=== PATIENT | male | born 1940 | race Caucasian/White ===

== ENCOUNTER 2017-03-23 16:16 | Emergency (ER) | payer MEDICAID, MEDICARE, OTHER ==
[~2017-03-23] VITALS: Ht 177.8 cm; Wt 68.0 kg
[~2017-03-23 16:16] MED LIST: ACET-2619 PO; ASPI81CT89 PO; BISA10SU1 RC; CALC-105 PO; CEPH500C16 PO; DEXT40GE PO; GABA100C PO; GLU1I IM; HYDR25TA32 PO; INSU100S45 SUBQ; LANTUS SUBQ; LEVO0.2T5 PO; LISI-420 PO; LOVA40TA5 PO; METF500T4 PO; METO-50 PO; OMEP-48 PO; PENT400T PO; PEP15L PO; TRAZ-286 PO; [UNRECOGNIZED DRUG - CODE] PO; [UNRECOGNIZED DRUG - CODE] PO; [UNRECOGNIZED DRUG - CODE] PO
[2017-03-23 17:29] VITALS: BP 135/64
--- NOTE | 2017-03-23 19:27 | NUR ---
PT TAKEN TO BED 12
--- NOTE | 2017-03-23 19:40 | NUR ---
76Y M BIB HEAD OF PRODUCT FOR ABSCESS TO RIGHT BAPTIST OF HEAD X 5 DAYS. PT STATES THE ABSCESS HAS GROWN IN SIZE AND WOULD LIKE TO BE EVALUATED. PT DENIES ANY PAIN. PT DENIES ANY N/V/D, SOB, CP AT THE MOMENT. 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
[2017-03-23] MEDS ORDERED: LIDOCAINE 1% 500 MG/50 ML VIAL INJ SCH (19:55)
--- NOTE | 2017-03-23 20:05 | NUR ---
Patient being evaluated by physician at bedside.
[2017-03-23] MEDS ORDERED: LIDOCAINE 2% 1000 MG/50 ML VIAL INJ ONE ×2 (20:06→20:10)
--- NOTE | 2017-03-23 20:35 | NUR ---
Patient discharged with v/s stable. Written and verbal after care instructions given and explained. Patient alert, oriented and verbalized understanding of instructions. Ambulatory with by caregiver. All questions addressed prior to discharge. ID band removed. Patient advised to follow up with PMD. Rx of BACTRIM DS, ULTRAM 50MG given. Patient educated on indication of medication including possible reaction and side effects. Opportunity to ask questions provided and answered.
[2017-03-23 20:36] VITALS: BP 119/71
== END 2017-03-23 20:35 | disposition home or self-care (01) ==
LOC: MED 16:16
DX: L02.811 Cutaneous abscess of head [any part, except face] (principal); J44.9 Chronic obstructive pulmonary disease, unspecified; E11.9 Type 2 diabetes mellitus without complications; Z88.5 Allergy status to narcotic agent
CPT/HCPCS: 10060; 82948; 99283; J2001

== ENCOUNTER 2017-12-02 08:32 | Emergency (ER) | payer OTHER, MEDICAID ==
[~2017-12-02] VITALS: Ht 170.2 cm; Wt 78.0 kg
[~2017-12-02 08:32] MED LIST changes: +DEXT31GE2 PO; -DEXT40GE PO; +INDO25CA PO; +METF-988 PO; -METF500T4 PO; -TRAZ-286 PO; +TRAZ-343 PO; -[UNRECOGNIZED DRUG - CODE] PO
[2017-12-02 08:42] VITALS: BP 115/57
[2017-12-02] MEDS ORDERED: [UNRECOGNIZED DRUG - CODE] PO (09:15)
[2017-12-02] MEDS ORDERED: AMLO10TA PO (09:15)
[2017-12-02] MEDS ORDERED: ALEN70TA1 PO (09:15)
[2017-12-02] MEDS ORDERED: ONDA4TAB PO (09:15)
[2017-12-02] MEDS ORDERED: MIRA25TE PO (09:15)
[2017-12-02] MEDS ORDERED: POTA8TER12 PO (09:15)
[2017-12-02] MEDS ORDERED: FURO-570 PO (09:15)
[2017-12-02] MEDS ORDERED: TRAM50TA1 PO (09:15)
[2017-12-02] MEDS ORDERED: METF1TAB34 PO (09:15)
[2017-12-02] MEDS ORDERED: RANI-485 PO (09:15)
[2017-12-02] MEDS ORDERED: [UNRECOGNIZED DRUG - CODE] SUBQ (09:15)
[2017-12-02] MEDS ORDERED: LOSA50TA27 PO (09:15)
[2017-12-02] MEDS ORDERED: PRE50 PO (09:15)
[2017-12-02] MEDS ORDERED: ROB PO (09:15)
[2017-12-02] MEDS ORDERED: TAMS0.4C96 PO (09:15)
[2017-12-02] MEDS: ONDANSETRON 4 MG/2 ML VIAL IVP ONE (09:29)
[2017-12-02] MEDS: NACL 0.9% 500 ML IV SCH (09:30)
[2017-12-02 09:41] LABS: WHITE BLOOD COUNT (AUTO) 9.6 K/uL (4.8-10.8)
[2017-12-02 09:42] LABS: BASOPHILS % (AUTO) 0.6 % (0.0-2.0); EOSINOPHILS % (AUTO) 1.5 % (0.0-4.0); HEMATOCRIT 37.7 % (36-52); HEMOGLOBIN 12.5 g/dL (12.0-18.0); LYMPHOCYTES # (AUTO) 0.7 K/uL (2.0-11.5); LYMPHOCYTES % (AUTO) 7.2 % (20.5-51.1); MEAN CORPUSCULAR HEMOGLOBIN 31 pg (27-31); MEAN CORPUSCULAR HGB CONC 33 g/dL (33-37); MEAN CORPUSCULAR VOLUME 94.9 fL (80-94); MONOCYTES % (AUTO) 16.4 % (1.7-9.3); NEUTROPHILS # (AUTO) 7.1 K/uL (1.8-7.7); NEUTROPHILS % (AUTO) 74.3 % (42.2-75.2); PLATELET COUNT (AUTO) 213 K/uL (140-450); RED BLOOD CELL COUNT(AUTO) 3.97 MIL/uL (4.20-6.10); RED CELL DISTRIBUTION WIDTH 14.1 % (11.6-13.7)
[2017-12-02 09:43] LABS: BASOPHILS # (AUTO) 0.1 K/uL (0.00-0.22); EOSINOPHILS # (AUTO) 0.1 K/uL (0-0.4); MONOCYTES # (AUTO) 1.6 K/uL (0.8-1.0)
[2017-12-02 09:53] LABS: ANION GAP 8.1 (8-16); CARBON DIOXIDE 27.6 mmol/L (21-32); CHLORIDE 103 mmol/L (98-107); CREATININE 1.4 mg/dL (0.7-1.3); GLUCOSE 158 mg/dL (74-106); POTASSIUM 3.7 mmol/L (3.5-5.1); SODIUM SERUM 135 mmol/L (136-145); UREA NITROGEN, BLOOD 18 mg/dL (7-18)
[2017-12-02 09:59] LABS: ASPARTATE AMINOTRANSFERASE 31 U/L (15-37); LIPASE 55 U/L (73-393); TOTAL BILIRUBIN 0.4 mg/dL (0.0-1.0)
[2017-12-02 12:45] LABS: APPEARANCE,URINE CLEAR (CLEAR); COLOR,URINE YELLOW (YELLOW)
[2017-12-02 12:46] LABS: BILIRUBIN,URINE NEGATIVE (NEGATIVE); BLOOD, URINE NEGATIVE (NEGATIVE); LEUKOCYTE ESTERASE ,URINE NEGATIVE (NEGATIVE); NITRITE, URINE NEGATIVE (NEGATIVE); UGLUCOSE NEGATIVE (NEGATIVE)
[2017-12-02] MEDS: cloNIDine 0.1 MG TAB PO ONE (13:20)
[2017-12-02 13:48] VITALS: BP 135/63
== END 2017-12-02 13:45 | disposition home or self-care (01) ==
LOC: MED 08:32
DX: K59.00 Constipation, unspecified (principal); J44.9 Chronic obstructive pulmonary disease, unspecified; E11.9 Type 2 diabetes mellitus without complications; I10 Essential (primary) hypertension; Z88.5 Allergy status to narcotic agent; Z79.899 Other long term (current) drug therapy; Z79.1 Long term (current) use of non-steroidal anti-inflammatories (NSAID); Z79.4 Long term (current) use of insulin
CPT/HCPCS: 36415; 74176; 80053; 81003; 83690; 85025; 96361; 96374; 99285; J2405; J7030

== ENCOUNTER 2018-04-05 10:21 | Inpatient (IN) | payer MEDICAID, OTHER ==
[~2018-04-05] VITALS: Ht 177.8 cm; Wt 63.5 kg
[~2018-04-05 10:21] MED LIST changes: +ALEN70TA1 PO; +AMLO10TA PO; +ASPI-1718 PO; -ASPI81CT89 PO; -CEPH500C16 PO; +FURO-570 PO; -HYDR25TA32 PO; -INDO25CA PO; -LISI-420 PO; +LOSA50TA66 PO; -METF-988 PO; +METF1TAB34 PO; +MIRA25TE PO; -OMEP-48 PO; +ONDA4TAB PO; -PENT400T PO; +POTA8TER12 PO; +PRE50 PO; +RANI-745 PO; +ROB PO; +TAMS0.4C96 PO; +TRAM50TA1 PO; +[UNRECOGNIZED DRUG - CODE] PO; -[UNRECOGNIZED DRUG - CODE] PO; -[UNRECOGNIZED DRUG - CODE] PO; +[UNRECOGNIZED DRUG - CODE] SUBQ
[2018-04-05 10:28] VITALS: BP 135/69
--- NOTE | 2018-04-05 10:28 | NUR ---
PT BIB [facility] TO ER BED 6
--- NOTE | 2018-04-05 10:50 | NUR ---
BROUGHT IN BY EMS FROM [facility] STAFF STATED PT WITH COUGH FEVER FATIGUE MILD ACCESSORY MUSCLE USE NOTED AT THIS TIME. HX--MILD INTELLECTUAL DISABILITY, DM, GERD, HTN, LEFT BKA, THYROID RX---ACTOS 15MG, HCTZ 25MG, BYDUREON 2MG SQ, ACARBOSE 50MG TID, BYRBETRIQ 50MG QD, LASIX 40MG HUMALOG, TAMSULOSIN 0.4MGQD
--- NOTE | 2018-04-05 10:50 | NUR ---
MARKETING ACCOUNT MANAGER HEIDI AND BILL AT BEDSIDE FOR CHEST XRAY
--- NOTE | 2018-04-05 11:01 | NUR ---
URINE AND FLU SPECIMEN COLLECTED AND GIVEN TO COVERAGE SPECIALIST RNBRETT RANDALL
[2018-04-05 11:18] LABS: APPEARANCE,URINE CLEAR (CLEAR); BILIRUBIN,URINE NEGATIVE (NEGATIVE); BLOOD, URINE NEGATIVE (NEGATIVE); COLOR,URINE YELLOW (YELLOW); LEUKOCYTE ESTERASE ,URINE TRACE (NEGATIVE); NITRITE, URINE NEGATIVE (NEGATIVE); PH,URINE 7.5 (5.0-9.0); UGLUCOSE NEGATIVE (NEGATIVE)
[2018-04-05 11:27] LABS: RBC,URINE 0-5 (RARE) /HPF (0-5); WBC,URINE 0-5 (RARE) /HPF (0-5)
[2018-04-05] MEDS ORDERED: NACL 0.9% 500 ML IV SCH (11:58)
[2018-04-05 12:56] LABS: ANION GAP 9.9 (8-16); CARBON DIOXIDE 29.9 mmol/L (21-32); CHLORIDE 99 mmol/L (98-107); CREATININE 1.4 mg/dL (0.7-1.3); GLUCOSE 134 mg/dL (74-106); POTASSIUM 3.8 mmol/L (3.5-5.1); SODIUM SERUM 135 mmol/L (136-145); UREA NITROGEN, BLOOD 23 mg/dL (7-18)
[2018-04-05 13:01] LABS: MAGNESIUM 1.6 mg/dL (1.8-2.4); URIC ACID 4.4 mg/dL (2.6-7.2)
[2018-04-05 13:10] LABS: ALBUMIN 3.2 g/dL (3.4-5.0); ASPARTATE AMINOTRANSFERASE 28 U/L (15-37); TOTAL BILIRUBIN 0.4 mg/dL (0.0-1.0)
[2018-04-05 13:15] LABS: ACETONE, SERUM NEGATIVE (NEGATIVE)
[2018-04-05 13:28] LABS: BASOPHILS % (AUTO) 0.2 % (0.0-2.0); HEMOGLOBIN 11.8 g/dL (12.0-18.0); LYMPHOCYTES # (AUTO) 0.4 K/uL (2.0-11.5); LYMPHOCYTES % (AUTO) 2.6 % (20.5-51.1); MEAN CORPUSCULAR HEMOGLOBIN 31 pg (27-31); MEAN CORPUSCULAR HGB CONC 33 g/dL (33-37); MEAN CORPUSCULAR VOLUME 92.8 fL (80-94); MONOCYTES # (AUTO) 1.5 K/uL (0.8-1.0); MONOCYTES % (AUTO) 10.4 % (1.7-9.3); NEUTROPHILS % (AUTO) 86.8 % (42.2-75.2); PLATELET COUNT (AUTO) 190 K/uL (140-450); RED BLOOD CELL COUNT(AUTO) 3.88 MIL/uL (4.20-6.10); RED CELL DISTRIBUTION WIDTH 15.2 % (11.6-13.7); WHITE BLOOD COUNT (AUTO) 14.9 K/uL (4.8-10.8)
[2018-04-05] MEDS ORDERED: PIPERACILLIN/TAZOBACTAM 3.375 GM in DEXTROSE 5% 50 ML IV ONE (14:35)
[2018-04-05] MEDS ORDERED: ALBUTEROL SULFATE/IPRATROPIU 3 ML SOL IH ONE (14:35)
[2018-04-05] MEDS ORDERED: methylPREDNISolone SS 125 MG/2 ML VIAL IVP ONE (14:35)
[2018-04-05] MEDS ORDERED: ONDANSETRON 4 MG/2 ML VIAL IM/IVP PRN (14:50)
[2018-04-05] MEDS ORDERED: ACETAMINOPHEN 325 MG TAB PO PRN (14:50)
[2018-04-05] MEDS ORDERED: HYDROcodone/APAP 7.5/325 MG 1 TAB PO PRN (14:50)
[2018-04-05] MEDS ORDERED: DOCUSATE SODIUM 100 MG GELCAP PO PRN (14:50)
[2018-04-05] MEDS ORDERED: MAG SULF 2000 MG/WATER PREMIX 50 ML IV SCH (15:00)
[2018-04-05] MEDS ORDERED: PIPERACILLIN/TAZOBACTAM 3.375 GM VIAL IV ONE (15:05)
[2018-04-05] MEDS ORDERED: GABAPENTIN 100 MG CAP PO PRN (15:15)
[2018-04-05] MEDS ORDERED: traZODone 50 MG TAB PO PRN (15:15)
[2018-04-05] MEDS ORDERED: DEXTROSE 50% 50 ML SYR IVP PRN (15:20)
[2018-04-05 16:01] LABS: BARBITURATE, URINE NEGATIVE ng/ml (NEG <=200); BENZODIAZEPINE, URINE NEGATIVE ng/mL (NEG <=200); CANNABINOID, URINE NEGATIVE ng/mL (NEG <=50); COCAINE, URINE NEGATIVE ng/mL (NEG <=300); OPIATE, URINE NEGATIVE ng/mL (NEG <=2000); PHENCYCLIDINE SCREEN,URINE NEGATIVE ng/mL (NEG <=25)
[2018-04-05 16:10] VITALS: BP 144/54
--- NOTE | 2018-04-05 16:10 | NUR ---
Patient will be admitted to care of Dr Carey. Admited to tele room 124A Belongings list completed. Report to GEO Bacon.
[2018-04-05 16:23] LABS: PHOSPHORUS 2.4 mg/dL (2.5-4.9)
[2018-04-05 16:24] LABS: CHOL/HDL RATIO 1.5 (1-4.5); THYROID STIMULATING HORMONE 1.62 uIU/mL (0.34-3.74)
[2018-04-05] MEDS: BLOOD GLUCOSE MONITORING 1 DEV DEV FS SCH ×2 (16:30→21:25)
--- NOTE | 2018-04-05 16:30 | NUR ---
Admitted from ED, with chief complaint of GENERALIZED WEAKNESS ,PT IS A 77 y/o ,Male, Cooperative,oriented to call light, bed, phone,television, bathroom, smoking policy,visiting hours, procedures, ID bracelet on. Belongings list checked. NO SOB NOTED. NO C/O PAIN AT THIS TIME. IV TO LEFT HAND PATENT AND INTACT. CHEST, DIMINISHED AIR ENTRY TO THE BASES. ABDOMEN SOFT,BOWEL SOUNDS PREST. WITH LEFT BKA, STUMP CLEAN, SKIN INTACT. INSTRUCTED PT TO CALL FOR ASSISTANCE, CALL LIGHT WITHIN REACH. VERBALIZED UNDERSTANDING.
[2018-04-05] MEDS ORDERED: PROMETHAZINE DM 6.25/15MG-5ML ORASYR PO PRN (17:00)
[2018-04-05] MEDS ORDERED: ACARBOSE 50 MG TAB PO SCH (17:00)
[2018-04-05] MEDS: NACL 0.9% 1,000 ML IV SCH (17:11)
[2018-04-05] MEDS ORDERED: SODIUM PHOS / POTASSIUM PHOS 1 PKT PDR PO SCH (17:30)
[2018-04-05] MEDS: metFORMIN 850 MG TAB PO SCH (17:30)
[2018-04-05] MEDS: LOSARTAN 50 MG TAB PO SCH (18:05)
[2018-04-05] MEDS ORDERED: ALBUTEROL SULFATE/IPRATROPIU 3 ML SOL IH PRN (19:00)
--- NOTE | 2018-04-05 19:25 | NUR ---
PT AWAKE, NO SOB NOTED. WITH ON GOING BREATHING TREATMENTS. NO COMPLAINTS MADE. WILL ENDORSE TO NEXT SHIFT NURSE.
--- NOTE | 2018-04-05 19:27 | NUR ---
RECEIVED PT FROM RUDOLPH GUARDADO KPT IS AAOX4 RESTING ON BED LEFT BKA, SKIN IS INTACT PT ON 03 20 LTS VIA NC , ON TELEMETRY SR NOT SOB NOTED RESP THERAPYK IS HERE AND GIVE BREATHING TX INITIAL ASSESSMENT DONE
[2018-04-05] MEDS: ALBUTEROL SULFATE/IPRATROPIU 3 ML SOL IH SCH (19:28)
--- NOTE | 2018-04-05 19:40 | NUR ---
RECEIVED PATIENT ON ROOM AIR, PULSE OX SAT 91%. SCHEDULED BREATHING TREATMENT ADMINISTERED. TOLERATED TREATMENT WELL. PATIENT PLACED ON 2L NC, PULSE OX SAT 98%. NO ADVERSE SIDE EFFECTS. NO RESPIRATORY DISTRESS NOTED AT THIS TIME. WILL CONTINUE TO MONITOR.
[2018-04-05 20:00] VITALS: BP 114/55
[2018-04-05] MEDS ORDERED: INSULIN LANTUS 100 UNITS/ML 10 ML VIAL SUBQ SCH (21:00)
[2018-04-05] MEDS: INSULIN LISPRO SLIDING SCALE 100 UNITS/ML VIAL SUBQ PRN (21:28)
[2018-04-05] MEDS: TAMSULOSIN 0.4 MG CAP PO SCH (21:31)
--- NOTE | 2018-04-05 22:00 | NUR ---
BLOOD SUGAR TEST 226 COVERAGE WITH 4 UNITS SUBQ HUMALOG FOLLOWING PROTOCOL, REPOSITIONED Q2H NOT DISTRESS NOTED; ON TELEMETRY SR
[2018-04-06] VITALS: BP 109/44
--- NOTE | 2018-04-06 | NUR ---
PT SB ON TELEMETRY AWAKE DENIES ANY PAIN OR DISCOMFORT
--- NOTE | 2018-04-06 03:00 | NUR ---
SPONGE BATH GIVEN LINEN CHANGED; , PT USING URINAL VOIDING WELL, NOT SOB NOTED NOT FEVER DENIES ANY PAIN.
[2018-04-06 04:00] VITALS: BP 125/47
[2018-04-06] MEDS: NACL 0.9% 1,000 ML IV SCH ×2 (05:07→16:29)
--- NOTE | 2018-04-06 05:09 | NUR ---
PT IS ASSISTED TO BRUSH HIS TEETH COOPERATIVE ON TELEMETRY SB NOT DISTRESS NOTED
[2018-04-06] MEDS: BLOOD GLUCOSE MONITORING 1 DEV DEV FS SCH ×4 (05:35→21:12)
[2018-04-06] MEDS: INSULIN LISPRO SLIDING SCALE 100 UNITS/ML VIAL SUBQ PRN ×4 (05:37→20:58)
--- NOTE | 2018-04-06 05:54 | NUR ---
BLOOD SUGAR TEST 274 COVERAGE WITH 6 UNITS HUMALOG SUBQ FOLLOWING PROTOCOL
[2018-04-06] MEDS: LEVOTHYROXINE 0.1 MG TAB PO SCH (05:55)
[2018-04-06] MEDS: ALBUTEROL SULFATE/IPRATROPIU 3 ML SOL IH SCH ×3 (06:13→20:27)
[2018-04-06 06:16] LABS: T4 (THYROXINE) 6.4 ug/dL (4.5-12.0)
--- NOTE | 2018-04-06 06:24 | NUR ---
PT WATCHING TV DENIES ANY PAIN OR DISTRESS IV ON LEFT HAND INFUSING WELL PT WILL BE ENDORSED TO DAY SHIFT NURSE FOR CONTINUITY OF CARE.
--- NOTE | 2018-04-06 07:30 | NUR ---
RECEIVED PT AAOX4. NO SOB NOTED, ON 2LPM OXYGEN VIA NASAL CANNULA WITH O2 SATS AT 95%. NO C/O PAIN AT THIS TIME. IV TO LT HAND PATENT AND INTACT. CHEST, DIMINISHED AIR ENTRY TO THE BASES. ABDOMEN SOFT, BOWEL SOUNDS PRESENT. LT BKA NOTED, NO WOUNDS, STUMP CLEAN AND HEALED. INSTRUCTED PT TO CALL FOR ASSISTANCE, CALL LIGHT WITHIN REACH, VERBALIZED UNDERSTANDING.
[2018-04-06 08:00] VITALS: BP 125/49
[2018-04-06] MEDS: metFORMIN 850 MG TAB PO SCH (08:00)
--- NOTE | 2018-04-06 08:18 | NUR ---
PATIENT HAS BEEN SCREENED AND CATEGORIZED MODERATE NUTRITION RISK. PATIENT WILL BE SEEN WITHIN 3-5 DAYS OF ADMISSION. 04/08/18ADELAIDE [address]LEX[address]ER [address]
[2018-04-06 08:31] LABS: BASOPHILS % (AUTO) 0.1 % (0.0-2.0); HEMATOCRIT 33.8 % (36-52); HEMOGLOBIN 10.9 g/dL (12.0-18.0); LYMPHOCYTES # (AUTO) 0.6 K/uL (2.0-11.5); LYMPHOCYTES % (AUTO) 3.2 % (20.5-51.1); MAGNESIUM 2.4 mg/dL (1.8-2.4); MEAN CORPUSCULAR HEMOGLOBIN 30 pg (27-31); MEAN CORPUSCULAR HGB CONC 32 g/dL (33-37); MEAN CORPUSCULAR VOLUME 93.4 fL (80-94); MONOCYTES # (AUTO) 0.5 K/uL (0.8-1.0); MONOCYTES % (AUTO) 2.9 % (1.7-9.3); NEUTROPHILS % (AUTO) 93.8 % (42.2-75.2); PHOSPHORUS 3.5 mg/dL (2.5-4.9); PLATELET COUNT (AUTO) 177 K/uL (140-450); RED BLOOD CELL COUNT(AUTO) 3.62 MIL/uL (4.20-6.10); RED CELL DISTRIBUTION WIDTH 15.2 % (11.6-13.7); WHITE BLOOD COUNT (AUTO) 17.1 K/uL (4.8-10.8)
[2018-04-06] MEDS ORDERED: CLINICAL MONITORING MC SCH (09:00)
[2018-04-06] MEDS ORDERED: MIRABEGRON 50 MG PO SCH (09:00)
[2018-04-06] MEDS ORDERED: METOPROLOL 50 MG TAB PO SCH (09:00)
[2018-04-06] MEDS ORDERED: AZITHROMYCIN 250 MG TAB PO SCH (09:00)
[2018-04-06] MEDS: amLODIPine 5 MG TAB PO SCH (09:04)
[2018-04-06] MEDS: traMADol 50 MG TAB PO PRN (09:04)
[2018-04-06] MEDS: ASPIRIN 81 MG TAB.CHEW PO SCH (09:04)
[2018-04-06] MEDS: LACTOBACILLUS RHAMNOSUS GG 1 EACH CAP PO SCH (09:04)
[2018-04-06] MEDS: CALCIUM CARB/VIT-D 500 MG/200 IU 1 TAB PO SCH (09:05)
[2018-04-06] MEDS: FERROUS SULFATE 325 MG TABEC PO SCH (09:05)
[2018-04-06 09:14] LABS: ANION GAP 11.5 (8-16); CARBON DIOXIDE 25.9 mmol/L (21-32); CHLORIDE 100 mmol/L (98-107); GLUCOSE 259 mg/dL (74-106); POTASSIUM 3.4 mmol/L (3.5-5.1); SODIUM SERUM 134 mmol/L (136-145)
[2018-04-06 09:15] LABS: CREATININE 1.6 mg/dL (0.7-1.3)
--- NOTE | 2018-04-06 09:27 | NUR ---
METFORMIN NOT GIVEN, SERUM CREATININE TODAY 1.6
[2018-04-06] MEDS ORDERED: POTASSIUM CHLORIDE 10 MEQ TABER PO SCH (09:28)
--- NOTE | 2018-04-06 10:37 | NUR ---
DEENA CORONA FROM PT'S BOARD AND CARE CAME. ASKED DEENA TO BRING PT'S PROSTHESIS, MEDICATION (MIRABEGRON) WHICH WE DON'T HAVE IN STOCK, AND PT'S PNA AND FLU VACCINE RECORDS. DEENA STATED SHE WILL COME BACK TODAY TO BRING THOSE ONES.
[2018-04-06 10:41] LABS: AMYLASE 27 U/L (25-115); LIPASE 52 U/L (73-393)
[2018-04-06 10:56] LABS: UREA NITROGEN, BLOOD 31 mg/dL (7-18)
[2018-04-06 12:00] VITALS: BP 116/56
--- NOTE | 2018-04-06 15:42 | NUR ---
RANDY FROM ADMITTING NOTIFIED FOR THE CHANGE OF ATTENDING PHYSICIAN INSTEAD OF DR. FRAZIER TO DR. Luis UREÑA. Addendum: 04/06/18 at 1547 by Arleen Gavin RN DISREGARD ABOVE NOTES. WRONG ENTRY.
--- NOTE | 2018-04-06 15:48 | NUR ---
PT CAREGIVER DEENA CAME AND BROUGHT PT'S LEFT LE PROSTHESIS, VACCINATION RECORD AND MYRBETRO ER 50 MG TAB. MEDS SENT TO PHARMACY.
[2018-04-06 16:00] VITALS: BP 128/57
--- NOTE | 2018-04-06 16:55 | NUR ---
SPOKE WITH PHARMACIST ERLIN, STATED PT DOES NOT NEED TO HAVE PNA VACCINE SINCE PT WAS VACCINATED AFTER 65 Y.O. ALTHOUGH IT HAS BEEN OVER 5 YRS PER PROTOCOL.
[2018-04-06] MEDS ORDERED: PNEUMOCOCCAL VACCINE 23 MCG/0.5 ML VIAL IMVAC ONE (17:10)
[2018-04-06] MEDS: LOSARTAN 50 MG TAB PO SCH (17:50)
--- NOTE | 2018-04-06 18:49 | NUR ---
PT AWAKE, WATCHING TV, NO SOB NOTED. NO COMPLAINTS MADE. WILL ENDORSE TO NEXT SHIFT NURSE FOR CONTINUITY OF CARE.
--- NOTE | 2018-04-06 19:20 | NUR ---
RECD. RESTING IN BED, AWAKE, A/OX4. RESPIRATION EVEN AND UNLABORED. ON 02 AT 2 LITERS VIA N/C, 02 SAT - 93 %. LUNGS DIMINISHED ON BILATERAL AUSCULTATION. IV OF NS AT 50 ML/HR INFUSING, LEFT HAND G20. ABDOMEN SLIGHTLY ROUND, SOFT, WITH POSITIVE BOWEL SOUNDS. LEFT BKA, WITH SEQUENTIALS ON RIGHT LE, PLAN OF CARE FOR THE SHIFT DISCUSSED. VERBALIZED UNDERSTANDING. DENIES PAIN 0/10.
[2018-04-06 20:00] VITALS: BP 117/45
--- NOTE | 2018-04-06 20:00 | NUR ---
Patient's Plan of Care was discussed and reviewed with CENTER MACHINE SET UP OPERATOR: PARTH EARL LVN.
[2018-04-06] MEDS: MYRBETRIC 50 MG PO SCH (20:50)
[2018-04-06] MEDS: SIMVASTATIN 20 MG TAB PO SCH (20:51)
[2018-04-06] MEDS: TAMSULOSIN 0.4 MG CAP PO SCH (20:51)
--- NOTE | 2018-04-06 20:51 | NUR ---
DUE PO MEDICATIONS GIVEN. ATE 100% OF SNACK FOR THE NIGHT.
[2018-04-06] MEDS ORDERED: INSULIN LANTUS 100 UNITS/ML 10 ML VIAL SUBQ SCH (21:00)
[2018-04-07] VITALS (7 sets, daily range): BP systolic 117–145; BP diastolic 40–67
--- NOTE | 2018-04-07 | NUR ---
SLEEPING COMFORTABLY IN BED.
--- NOTE | 2018-04-07 05:00 | NUR ---
REQUESTED FOR A BEDPAN TO HAVE BM. UNABLE, INSTEAD VOIDED ONLY. ASSISTED TO CLEANED SELF.
[2018-04-07] MEDS: BLOOD GLUCOSE MONITORING 1 DEV DEV FS SCH ×4 (06:11→22:10)
[2018-04-07] MEDS: LEVOTHYROXINE 0.1 MG TAB PO SCH (06:11)
[2018-04-07] MEDS: INSULIN LISPRO SLIDING SCALE 100 UNITS/ML VIAL SUBQ PRN ×4 (06:15→23:42)
[2018-04-07] MEDS: NACL 0.9% 1,000 ML IV SCH (06:44)
[2018-04-07 06:53] LABS: ANION GAP 11.7 (8-16); CARBON DIOXIDE 26.1 mmol/L (21-32); CHLORIDE 98 mmol/L (98-107); CREATININE 1.6 mg/dL (0.7-1.3); GLUCOSE 396 mg/dL (74-106); POTASSIUM 4.8 mmol/L (3.5-5.1); SODIUM SERUM 131 mmol/L (136-145); UREA NITROGEN, BLOOD 42 mg/dL (7-18)
--- NOTE | 2018-04-07 06:56 | NUR ---
WITH PRODUCTIVE COUGHING NOTED. ABLE TO COUGHED OUT SOME PHLEGM. ON SCHEDULED BREATHING TREATMENTS. CONDITION REMAIN STABLE. WILL ENDORSE TO AM NURSE FOR CONTINUITY OF CARE.
--- NOTE | 2018-04-07 07:00 | NUR ---
RECEIVED BEDSIDE REPORT FROM LEAD NURSE NURSE. PATIENT AAOX4. PATIENT ON 2 L O2 NC, NO DISTRESS NOTED. PATIENT W L BKA, PROSTHESIS AT BEDSIDE. SKIN INTACT. IV ON L HAND 20 G INFUSING NS AT 50. IV ASYMPTOMATIC AND INTACT. PATIENT CONTINENT. FALL RISK PROTOCOL IN PLACE. ON TELE MONITOR AND STANDARD PRECAUTIONS. BED IN LOW POSITION, CALL LIGHT WITHIN REACH. WILL CONTINUE TO MONITOR.
[2018-04-07 07:11] LABS: RED BLOOD CELL COUNT(AUTO) 3.49 MIL/uL (4.20-6.10); WHITE BLOOD COUNT (AUTO) 17.4 K/uL (4.8-10.8)
[2018-04-07 07:12] LABS: HEMATOCRIT 32.7 % (36-52); HEMOGLOBIN 10.6 g/dL (12.0-18.0); LYMPHOCYTES # (AUTO) 0.4 K/uL (2.0-11.5); LYMPHOCYTES % (AUTO) 2.5 % (20.5-51.1); MEAN CORPUSCULAR HEMOGLOBIN 31 pg (27-31); MEAN CORPUSCULAR HGB CONC 33 g/dL (33-37); MEAN CORPUSCULAR VOLUME 93.7 fL (80-94); MONOCYTES % (AUTO) 5.3 % (1.7-9.3); NEUTROPHILS % (AUTO) 92.2 % (42.2-75.2); PLATELET COUNT (AUTO) 167 K/uL (140-450); RED CELL DISTRIBUTION WIDTH 15.1 % (11.6-13.7)
[2018-04-07 07:13] LABS: MONOCYTES # (AUTO) 0.9 K/uL (0.8-1.0)
[2018-04-07] MEDS ORDERED: BENZONATATE 100 MG CAPLF PO PRN (08:15)
[2018-04-07] MEDS ORDERED: glipiZIDE ER 5 MG TABER PO SCH (08:24)
[2018-04-07] MEDS ORDERED: INSULIN LANTUS 100 UNITS/ML 10 ML VIAL SUBQ SCH ×2 (08:30→21:00)
[2018-04-07] MEDS ORDERED: OSELTAMIVIR PHOSPHATE 75 MG CAP PO SCH (09:00)
[2018-04-07] MEDS ORDERED: guaiFENesin 600 MG TABER PO SCH (09:00)
[2018-04-07] MEDS: amLODIPine 5 MG TAB PO SCH (09:00)
[2018-04-07] MEDS ORDERED: ALENDRONATE SODIUM 70 MG TAB PO SCH (09:00)
[2018-04-07] MEDS: ASPIRIN 81 MG TAB.CHEW PO SCH (09:12)
[2018-04-07] MEDS: FERROUS SULFATE 325 MG TABEC PO SCH (09:12)
[2018-04-07] MEDS: LACTOBACILLUS RHAMNOSUS GG 1 EACH CAP PO SCH (09:13)
[2018-04-07] MEDS: CALCIUM CARB/VIT-D 500 MG/200 IU 1 TAB PO SCH (09:13)
[2018-04-07] MEDS: guaiFENesin 600 MG TABER PO SCH ×2 (09:13→21:14)
[2018-04-07] MEDS: TAMIFLU 30 MG PO SCH (09:16)
--- NOTE | 2018-04-07 09:39 | NUR ---
ADMOINISTERED SCHEDULED MEDS TO PATIENT. PATIENT TOLERATED WELL. WILL CONTINUE TO MONITOR.
[2018-04-07] MEDS: ALBUTEROL SULFATE/IPRATROPIU 3 ML SOL IH SCH ×3 (10:35→21:19)
--- NOTE | 2018-04-07 10:44 | NUR ---
7.00 TREATMENT LATE DUE TO CALL FOR RAPID AND INTUBATE ANOTHER PATIENT.
--- NOTE | 2018-04-07 11:30 | NUR ---
ASSISTED PATIENT TO BEDSIDE COMMODE. PATIENT HAD BOWEL MOVEMENT. PATIENT BACK IN BED. WILL CONTINUE TO MONITOR.
--- NOTE | 2018-04-07 12:27 | NUR ---
BLOOD SUGAR OF 432. CALLED MD PER INSULIN SLIDING SCALE. DR. RIBERA SAID TO GIVE PATIENT 14 UNITS OF INSULIN. Addendum: 04/07/18 at 1315 by Rona Galvan RN WRONG BLOOD SUGAR LEVEL. PLEASE DISREGARD. BLOOD SUGAR LEVEL OF 427
--- NOTE | 2018-04-07 12:51 | NUR ---
ADMINISTERED 14 UNITS HUMALOG. PATIENT TOLERATED WELL AND EATING LUNCH AT THIS TIME. WILL CONTINUE TO MONITOR.
[2018-04-07] MEDS ORDERED: PIPER/TAZO 2.25GM/D5W PREMIX 50 ML IV SCH (13:00)
--- NOTE | 2018-04-07 14:15 | NUR ---
PATIENT DRAWING. ON , NO DISTRESS NOTED. WILL CONTINUE TO MONITOR.
[2018-04-07 16:23] LABS: ANION GAP 8.9 (8-16); CARBON DIOXIDE 27.6 mmol/L (21-32); CHLORIDE 97 mmol/L (98-107); CREATININE 1.8 mg/dL (0.7-1.3); POTASSIUM 4.5 mmol/L (3.5-5.1); SODIUM SERUM 129 mmol/L (136-145); UREA NITROGEN, BLOOD 44 mg/dL (7-18)
[2018-04-07 16:47] LABS: GLUCOSE 478 mg/dL (74-106)
[2018-04-07] MEDS: LOSARTAN 50 MG TAB PO SCH (17:50)
[2018-04-07] MEDS ORDERED: BYDUREON SUBQ SCH (18:00)
[2018-04-07] MEDS ORDERED: AZITHROMYCIN 250 MG TAB PO SCH (18:00)
--- NOTE | 2018-04-07 18:10 | NUR ---
ADMINISTERED BENZONATATE PRN FOR COUGH. PATIENT TOLERATED WELL. WILL CONTINUE TO MONITOR.
--- NOTE | 2018-04-07 19:33 | NUR ---
GAVE BEDSIDE REPORT TO TECHNOLOGY INFUSION SPECIALIST NURSE. PATIENT ENDORSED IN STABLE CONDITION.
--- NOTE | 2018-04-07 21:00 | NUR ---
RECEIVED REPORT FROM DAYSHIFT NURSE AT BEDSIDE FOR CONTINUITY OF CARE. PT AAOX4. PT IV NOTED L WRIST 20G NS 20ML/HR. NO SOB NO S/S OF DISTRESS ON RA. BED LOWERED CALL LIGHT WITHIN REACH WILL CONTINUE TO MONITOR.
[2018-04-07] MEDS: TAMSULOSIN 0.4 MG CAP PO SCH (21:14)
[2018-04-07] MEDS: SIMVASTATIN 20 MG TAB PO SCH (21:14)
[2018-04-07] MEDS: MYRBETRIC 50 MG PO SCH (21:15)
[2018-04-07] MEDS: INSULIN LANTUS 100 UNITS/ML 10 ML VIAL SUBQ SCH (21:18)
--- NOTE | 2018-04-07 23:33 | NUR ---
PER MD HELMS PT PREVIOUS BLOOD GLUCOSE OF 390 WAS VERY HIGH. I EXPLAINED TO HER I MEDICATED WITH 12U OF HUMALOG AND 30U OF LANTUS. SHE ASKED TO RETAKE BG AGAIN. OF 2329 BLOOD GLUCOSE WAS 276. ANALIA WAS GIVEN NEW INFO ON BLOOD GLUCOSE OF 276 AND ANALIA STATED TO GIVE PATIENT 6U OF HUMALOG. WILL CONTINUE TO MONITOR.
[2018-04-08] MEDS: NACL 0.9% 1,000 ML IV SCH ×2 (01:55→23:25)
[2018-04-08 04:00] VITALS: BP 134/59
[2018-04-08] MEDS: LEVOTHYROXINE 0.1 MG TAB PO SCH (05:45)
[2018-04-08] MEDS: BLOOD GLUCOSE MONITORING 1 DEV DEV FS SCH ×4 (05:45→20:38)
[2018-04-08 06:37] LABS: ANION GAP 10.3 (8-16); CARBON DIOXIDE 27.8 mmol/L (21-32); CHLORIDE 103 mmol/L (98-107); CREATININE 1.4 mg/dL (0.7-1.3); GLUCOSE 96 mg/dL (74-106); POTASSIUM 4.1 mmol/L (3.5-5.1); SODIUM SERUM 137 mmol/L (136-145); UREA NITROGEN, BLOOD 35 mg/dL (7-18)
[2018-04-08 06:40] LABS: EOSINOPHILS % (AUTO) 0.2 % (0.0-4.0); HEMATOCRIT 34.6 % (36-52); HEMOGLOBIN 11.3 g/dL (12.0-18.0); LYMPHOCYTES # (AUTO) 0.8 K/uL (2.0-11.5); LYMPHOCYTES % (AUTO) 5.5 % (20.5-51.1); MEAN CORPUSCULAR HEMOGLOBIN 30 pg (27-31); MEAN CORPUSCULAR HGB CONC 33 g/dL (33-37); MEAN CORPUSCULAR VOLUME 93.3 fL (80-94); MONOCYTES # (AUTO) 1.2 K/uL (0.8-1.0); MONOCYTES % (AUTO) 8.4 % (1.7-9.3); NEUTROPHILS # (AUTO) 12.1 K/uL (1.8-7.7); NEUTROPHILS % (AUTO) 85.9 % (42.2-75.2); PLATELET COUNT (AUTO) 202 K/uL (140-450); RED BLOOD CELL COUNT(AUTO) 3.71 MIL/uL (4.20-6.10); RED CELL DISTRIBUTION WIDTH 15.3 % (11.6-13.7); WHITE BLOOD COUNT (AUTO) 14.1 K/uL (4.8-10.8)
--- NOTE | 2018-04-08 07:22 | NUR ---
RECEIVED BEDSIDE REPORT FROM FLYING TEACHER NURSE GUEVARA. PATIENT AAOX4. ON 2 L O2 NC, NO DISTRESS NOTED. SKIN INTACT. FALL RISK PROTOCOL IN PLACE. PROSTHETIC LEG AT BEDISDE. BEDSIDE COMMODE AND URINAL AT BEDSIDE. IV ON L HAND 20 G INFUSING NS AT 50. IV ASYMPTOMATIC, INTACT, AND PATENT. PATIENT ON TELE MONITOR AND STANDARD PRECAUTIONS IN PLACE. BED IN LOW POSITION, CALL LIGHT WITHIN REACH. WILL CONTINUE TO MONITOR.
--- NOTE | 2018-04-08 07:28 | NUR ---
ENDORSED REPORT TO DAYSHIFT NURSE AT BEDSIDE FOR CONTINUITY OF CARE.
[2018-04-08] MEDS: ALBUTEROL SULFATE/IPRATROPIU 3 ML SOL IH SCH ×3 (07:55→20:17)
[2018-04-08 08:00] VITALS: BP 145/58
[2018-04-08] MEDS ORDERED: glipiZIDE ER 5 MG TABER PO SCH (08:00)
--- NOTE | 2018-04-08 08:01 | NUR ---
RECEIVED PATIENT ON ROOM AIR, PULSE OX 93%. SCHEDULED BREATHING TREATMENT ADMINISTERED. TOLERATED TX WELL, NO ADVERSE SIDE EFFECTS. PLACED PATIENT ON 2L NC, PULSE OX 98%. STRONG COUGH EFFORT DEMONSTRATED BY PATIENT TO CLEAR SECRETIONS. NO RESPIRATORY DISTRESS NOTED AT THIS TIME. WILL CONTINUE TO MONITOR.
[2018-04-08] MEDS: amLODIPine 5 MG TAB PO SCH (09:11)
[2018-04-08] MEDS: ASPIRIN 81 MG TAB.CHEW PO SCH (09:11)
[2018-04-08] MEDS: LACTOBACILLUS RHAMNOSUS GG 1 EACH CAP PO SCH (09:12)
[2018-04-08] MEDS: guaiFENesin 600 MG TABER PO SCH ×2 (09:12→20:39)
[2018-04-08] MEDS: CALCIUM CARB/VIT-D 500 MG/200 IU 1 TAB PO SCH (09:12)
[2018-04-08] MEDS: AZITHROMYCIN 250 MG TAB PO SCH (09:13)
[2018-04-08] MEDS: FERROUS SULFATE 325 MG TABEC PO SCH (09:13)
[2018-04-08] MEDS: TAMIFLU 30 MG PO SCH (09:15)
--- NOTE | 2018-04-08 09:26 | NUR ---
ADMINISTERED SCHEDULED MEDS. PATIENT TOLERATED WELL. WILL CONTINUE TO MONITOR.
--- NOTE | 2018-04-08 10:57 | NUR ---
Clinical information faxed to [facility] .
--- NOTE | 2018-04-08 11:50 | NUR ---
Faxed to Tuy[facility] from [facility] influenza results. Pt's room number is 206 C per Tuyet .
[2018-04-08 12:00] VITALS: BP 161/54
--- NOTE | 2018-04-08 12:18 | NUR ---
PATIENT LAYING IN BED, ON 2 L O2 NC , NO DISTRESS NOTED, WILL CONTINUE TO MONITOR.
[2018-04-08 16:00] VITALS: BP 162/58
[2018-04-08] MEDS: INSULIN LISPRO SLIDING SCALE 100 UNITS/ML VIAL SUBQ PRN (16:47)
[2018-04-08] MEDS: LOSARTAN 50 MG TAB PO SCH (16:52)
--- NOTE | 2018-04-08 19:24 | NUR ---
GAVE REPORT TO SENIOR EDITOR NURSE ANTONIA GUARDADO. PATIENT ENDORSED IN STABLE CONDITION.
--- NOTE | 2018-04-08 19:25 | NUR ---
RECEIVED REPORT FROM DAY SHIFT NURSE KAJAL-RN AT BEDSIDE. AOX4, ON 2L/OXIMIZER, WITH LEFT HAND #20G RUNNING NS 0.9% @ 20ML/HR, BEDSIDE COMMODE IN PLACE. DISCUSSED PLAN OF CARE AND PT VERBALIZED UNDERSTANDING. NO S/S OF RESPIRATORY DISTRESS OR DISCOMFORT NOTED AT THIS TIME. BED IN LOWEST POSITION, BED BREAKS ON, BOTH SIDE RAILS UP AND FALL PRECAUTIONS IN PLACE. BEDSIDE TABLE AND CALL LIGHT ARE WITHIN REACH. WILL CONTINUE TO MONITOR.
[2018-04-08 20:00] VITALS: BP 148/71
--- NOTE | 2018-04-08 20:00 | NUR ---
VITAL SIGNS TAKEN AND TOLERATED WELL. BLOOD GLUCOSE 130- NO INSULIN COVERAGE NEEDED. NO S/S OF RESPIRATORY DISTRESS OR DISCOMFORT NOTED AT THIS TIME. WILL CONTINUE TO MONITOR
[2018-04-08] MEDS: MYRBETRIC 50 MG PO SCH (20:38)
[2018-04-08] MEDS: TAMSULOSIN 0.4 MG CAP PO SCH (20:38)
[2018-04-08] MEDS: SIMVASTATIN 20 MG TAB PO SCH (20:39)
[2018-04-08] MEDS: INSULIN LANTUS 100 UNITS/ML 10 ML VIAL SUBQ SCH (20:41)
--- NOTE | 2018-04-08 20:41 | NUR ---
SCHEDULED MEDICATION GIVEN AND TOLERATED WELL. BEDTIME SNACK PROVIDED. NO S/S OF RESPIRATORY DISTRESS OR DISCOMFORT NOTED AT THIS TIME. WILL CONTINUE TO MONITOR
[2018-04-08] MEDS: traMADol 50 MG TAB PO PRN (22:20)
--- NOTE | 2018-04-08 22:20 | NUR ---
PT C/O KNEE PAIN 07/26 THAT RADIATED TO HIS BACK. AFTER REPOSITIONING ATTEMPTS, PT REQUESTED PAIN PILL THAT WOULD ALSO CAUSE DROWSINESS. TRAMADOL WAS GIVEN AND TOLERATED WELL. NO S/S OF RESPIRATORY DISTRESS OR DISCOMFORT NOTED AT THIS TIME. WILL CONTINUE TO MONITOR
[2018-04-09] VITALS: BP 158/57
--- NOTE | 2018-04-09 | NUR ---
VITAL SIGNS TAKEN AND TOLERATED WELL. REPOSITIONED PT TO LEFT SIDE. NO S/S OF RESPIRATORY DISTRESS OR DISCOMFORT NOTED AT THIS TIME. WILL CONTINUE TO MONITOR
--- NOTE | 2018-04-09 02:00 | NUR ---
PT CONTINUES TO SLEEP IN BED. NO S/S OF RESPIRATORY DISTRESS OR DISCOMFORT NOTED AT THIS TIME. WILL CONTINUE TO MONITOR
[2018-04-09 04:00] VITALS: BP 158/59
--- NOTE | 2018-04-09 04:00 | NUR ---
VITAL SIGNS TAKEN AND TOLERATED WELL. PT C/O "NOT FEELING WELL, LIKE LOW BLOOD SUGAR." BLOOD GLUCOSE 39- APPLE JUICE GIVEN. WILL GIVE DEXTROSE 50. NO S/S OF RESPIRATORY DISTRESS OR DISCOMFORT NOTED AT THIS TIME. WILL CONTINUE TO MONITOR
--- NOTE | 2018-04-09 04:10 | NUR ---
DEXTROSE 50 GIVEN AND TOLERATED WELL. WILL CHECK BLOOD GLUCOSE IN ONE HOUR. NO S/S OF RESPIRATORY DISTRESS OR DISCOMFORT NOTED AT THIS TIME. WILL CONTINUE TO MONITOR
--- NOTE | 2018-04-09 05:17 | NUR ---
BLOOD GLUCOSE 115. ASSISTED PT TO USE BEDSIDE COMMODE- MODERATE AMOUNT OF BM, SOFT, BROWN. NO S/S OF RESPIRATORY DISTRESS OR DISCOMFORT NOTED AT THIS TIME. WILL CONTINUE TO MONITOR
[2018-04-09] MEDS: LEVOTHYROXINE 0.1 MG TAB PO SCH (06:11)
[2018-04-09] MEDS: BLOOD GLUCOSE MONITORING 1 DEV DEV FS SCH ×2 (06:11→11:30)
--- NOTE | 2018-04-09 06:11 | NUR ---
SCHEDULED MEDICATION GIVEN AND TOLERATED WELL. NO S/S OF RESPIRATORY DISTRESS OR DISCOMFORT NOTED AT THIS TIME. WILL CONTINUE TO MONITOR
[2018-04-09 06:34] LABS: ANION GAP 9.4 (8-16); CARBON DIOXIDE 29.6 mmol/L (21-32); CHLORIDE 103 mmol/L (98-107); CREATININE 1.2 mg/dL (0.7-1.3); GLUCOSE 99 mg/dL (74-106); SODIUM SERUM 138 mmol/L (136-145); UREA NITROGEN, BLOOD 19 mg/dL (7-18)
[2018-04-09 06:35] LABS: BASOPHILS % (AUTO) 0.1 % (0.0-2.0); EOSINOPHILS # (AUTO) 0.4 K/uL (0-0.4); EOSINOPHILS % (AUTO) 4.7 % (0.0-4.0); LYMPHOCYTES # (AUTO) 0.7 K/uL (2.0-11.5); LYMPHOCYTES % (AUTO) 8.5 % (20.5-51.1); MEAN CORPUSCULAR HEMOGLOBIN 31 pg (27-31); MEAN CORPUSCULAR HGB CONC 33 g/dL (33-37); MEAN CORPUSCULAR VOLUME 92.9 fL (80-94); MONOCYTES # (AUTO) 1.2 K/uL (0.8-1.0); MONOCYTES % (AUTO) 14.9 % (1.7-9.3); NEUTROPHILS # (AUTO) 5.7 K/uL (1.8-7.7); NEUTROPHILS % (AUTO) 71.8 % (42.2-75.2); PLATELET COUNT (AUTO) 219 K/uL (140-450); RED BLOOD CELL COUNT(AUTO) 3.55 MIL/uL (4.20-6.10); RED CELL DISTRIBUTION WIDTH 15.4 % (11.6-13.7)
[2018-04-09] MEDS: ALBUTEROL SULFATE/IPRATROPIU 3 ML SOL IH SCH ×2 (07:00→13:12)
--- NOTE | 2018-04-09 07:19 | NUR ---
ENDORSED PT CARE TO DAY SHIFT NURSE NAYA-RN FOR CONTINUITY OF CARE.
--- NOTE | 2018-04-09 07:20 | NUR ---
REPORT RECIVED FROM CORE JAVA ENGINEER, PT AWAKE ALERT, RESP EVEN UNLABORED, SKIN WARM DRY COLOR WNL, POC REVIEWED, ALL SAFETY MEASURES IN PLACE, NO IMMEDIATE NEEDS AT THIST GELACIO, WILL CONTINUE TO MONITOR.
[2018-04-09 08:00] VITALS: BP 149/66
[2018-04-09] MEDS ORDERED: AZIT250T11 PO (08:59)
[2018-04-09] MEDS ORDERED: GLUC-805 FS (08:59)
[2018-04-09] MEDS ORDERED: HUMSLIDE SUBQ (08:59)
[2018-04-09] MEDS ORDERED: LANTUS SUBQ (08:59)
[2018-04-09] MEDS ORDERED: BENZ100C6 PO (08:59)
[2018-04-09] MEDS ORDERED: SITA50TA3 PO (08:59)
[2018-04-09] MEDS ORDERED: GUAI-791 PO (08:59)
[2018-04-09] MEDS ORDERED: FER325 PO (08:59)
[2018-04-09] MEDS ORDERED: ROC1PM IV (09:00)
--- NOTE | 2018-04-09 09:29 | NUR ---
PT WALKING AROUND HALLWAY WITH WALKER WITH PROTHESIS ON LEFT LOWER LEG WITH STEADY GAIT.
[2018-04-09] MEDS: ASPIRIN 81 MG TAB.CHEW PO SCH (09:31)
[2018-04-09] MEDS: FERROUS SULFATE 325 MG TABEC PO SCH (09:31)
[2018-04-09] MEDS: CALCIUM CARB/VIT-D 500 MG/200 IU 1 TAB PO SCH (09:31)
[2018-04-09] MEDS: amLODIPine 5 MG TAB PO SCH (09:31)
[2018-04-09] MEDS: AZITHROMYCIN 250 MG TAB PO SCH (09:32)
[2018-04-09] MEDS: guaiFENesin 600 MG TABER PO SCH (09:32)
[2018-04-09] MEDS: LACTOBACILLUS RHAMNOSUS GG 1 EACH CAP PO SCH (09:32)
[2018-04-09] MEDS: TAMIFLU 30 MG PO SCH (09:45)
--- NOTE | 2018-04-09 10:34 | NUR ---
Spoke with Gerber from [facility] and informed him that the pt will be going to them today. Gerber will arrange for transportation and the pt will be going to room 206 B. Informed Gerber pt is on 02 2L NC and no isolation. Gerber will call me back for the time of grain picker.
--- NOTE | 2018-04-09 11:43 | NUR ---
Gerber called from [facility] and informing us the time for warp picker is at 1530. Informed Carolyn GUARDADO pt will be picked up at 1530.
[2018-04-09 12:00] VITALS: BP 128/78
--- NOTE | 2018-04-09 12:05 | NUR ---
PT SITTING UP DRAWING PICTURES, AWAITING LUNCH, DENIES PAIN, IN GOOD SPIRITS, NO NEEDS VOICED AT THIS TIME.
[2018-04-09] MEDS: INSULIN LISPRO SLIDING SCALE 100 UNITS/ML VIAL SUBQ PRN (12:39)
--- NOTE | 2018-04-09 13:38 | NUR ---
REPORT CALLED TO JAMIR AT [facility] [phone], PT TO BE PICKED UP AT 1530 TO GO TO 206B. PT AWARE OF THE PLAN.
--- NOTE | 2018-04-09 15:04 | NUR ---
DISCHARGE INSTRUCTIONS GIVEN AND EXPLAINED TO PT, PT VERBALIZED FULL UNDERSTANDING, MEDS RETURNED TO PT FROM PHARMACY, [facility]
[2018-04-09 15:30] VITALS: BP 130/71
--- NOTE | 2018-04-09 15:40 | NUR ---
SONYA RAO HERE TO TAKE PT TO [facility], REPORT GIVEN TO EMS, PT TRANSFERRED TO [facility]. Addendum: 04/09/18 at 1544 by Danielle Leon RN PT AAOX4, SMILING, TALKING WITHOUT PROBLEM, ALL BELINGINGS TAKEN WITH PT.
== END 2018-04-09 15:40 | DRG 682 ==
LOC: MED 10:21 → MTU 14:49
PROVIDERS: ADMIT General Practice; ATTEND General Practice
DX: N17.0 Acute kidney failure with tubular necrosis (principal); J11.00 Influenza due to unidentified influenza virus with unspecified type of pneumonia; E44.0 Moderate protein-calorie malnutrition; E87.1 Hypo-osmolality and hyponatremia; J44.0 Chronic obstructive pulmonary disease with (acute) lower respiratory infection; J98.11 Atelectasis; Z68.20 Body mass index [BMI] 20.0-20.9, adult; E83.42 Hypomagnesemia; E83.39 Other disorders of phosphorus metabolism; E03.9 Hypothyroidism, unspecified; N40.0 Benign prostatic hyperplasia without lower urinary tract symptoms; M81.0 Age-related osteoporosis without current pathological fracture; E11.22 Type 2 diabetes mellitus with diabetic chronic kidney disease; E11.51 Type 2 diabetes mellitus with diabetic peripheral angiopathy without gangrene; E78.00 Pure hypercholesterolemia, unspecified; I12.9 Hypertensive chronic kidney disease with stage 1 through stage 4 chronic kidney disease, or unspecified chronic kidney disease; N18.9 Chronic kidney disease, unspecified; E11.65 Type 2 diabetes mellitus with hyperglycemia; E78.5 Hyperlipidemia, unspecified; D64.9 Anemia, unspecified; Z88.5 Allergy status to narcotic agent; Z89.512 Acquired absence of left leg below knee; Z79.82 Long term (current) use of aspirin; Z79.899 Other long term (current) drug therapy; Z79.84 Long term (current) use of oral hypoglycemic drugs
CPT/HCPCS: 36415; 71045; 80048; 80053; 80305; 81001; 82009; 82140; 82150; 82948; 83036; 83540; 83605; 83690; 83735; 83880; 84100; 84436; 84443; 84479; 84484; 84550; 85025; 85610; 85651; 85730; 86140; 87040; 87081; 87086; 87804; 93005; 94640; 96365; 96375; 97110; 97116; 97530; 99285; J0696; J1644; J1815; J2405; J2543; J2930; J3475; J7030; J7060; J7620; Q0092

== ENCOUNTER 2018-07-11 09:16 | Inpatient (IN) | payer OTHER, MEDICAID ==
[~2018-07-11] VITALS: Ht 182.9 cm; Wt 78.0 kg
[~2018-07-11 09:16] MED LIST changes: +AZIT250T11 PO; +BENZ100C6 PO; +FER325 PO; -FURO-570 PO; +GLUC-805 FS; +GUAI-791 PO; +HUMSLIDE SUBQ; -INSU100S45 SUBQ; -METF1TAB34 PO; -METO-50 PO; -POTA8TER12 PO; -PRE50 PO; +ROC1PM IV; +SITA50TA3 PO
--- NOTE | 2018-07-11 09:22 | NUR ---
Patient transferred to bed 6 via wheelchair by caregiver. RN evaluating patient at bedside.
--- NOTE | 2018-07-11 09:22 | NUR ---
BIB CAREGIVER FROM [facility] PT C/O COUGH WITH YELLOW PHLEGM X1 WEEK. PT HAS PRESCRIBED MEDS PREDNISONE AND TUSSIN WITH NO RELIEF. DENIES SOB. CLEAR EQUAL [place] LUNGS UPON AUSCULTATION. PT PLACED ON FULL CLINICAL SUPPORT SPECIALIST. HOB UP. BED SIDE RAILS UP X1. ON LOW BED POSITION, LOCKED. ER TO EVALUATE PT.
[2018-07-11 09:24] VITALS: BP 153/68
--- NOTE | 2018-07-11 09:28 | NUR ---
Dr. Rico evaluating patient at bedside.
[2018-07-11] MEDS ORDERED: methylPREDNISolone SS 125 MG in WATER STERILE 2 ML IM ONE (09:35)
[2018-07-11] MEDS ORDERED: PROMETHAZINE 25 MG/ML VIAL IM ONE (09:35)
[2018-07-11] MEDS ORDERED: ALBUTEROL SULFATE/IPRATROPIU 3 ML SOL IH ONE (09:35)
[2018-07-11] MEDS ORDERED: cefTRIAXone 1,000 MG in LIDOCAINE 1% ***ER ONLY *** 2.1 ML IM ONE (09:35)
--- NOTE | 2018-07-11 09:48 | NUR ---
[facility] THERAPY AND RESPIRATORY DRUG GIVEN ORDERED ENCOURAGED PATIENT FOR INTERMITTENT DEEP BREATHING AND COUGH
--- NOTE | 2018-07-11 09:50 | NUR ---
Breathing treatment administered at bedside by respiratory therapist.
--- NOTE | 2018-07-11 09:52 | NUR ---
artificial breeding technician at bedside.
[2018-07-11] MEDS ORDERED: cefTRIAXone 1,000 MG VIAL ONE (10:02)
[2018-07-11] MEDS ORDERED: LOSA50TA66 PO (10:07)
[2018-07-11] MEDS ORDERED: CALC-784 PO (10:07)
[2018-07-11] MEDS ORDERED: [UNRECOGNIZED DRUG - CODE] TP (10:07)
[2018-07-11] MEDS ORDERED: ALEN70TA9 PO (10:07)
[2018-07-11] MEDS ORDERED: PRE50 PO (10:07)
[2018-07-11] MEDS ORDERED: [UNRECOGNIZED DRUG - CODE] SC (10:07)
[2018-07-11] MEDS ORDERED: RANI-745 PO (10:07)
[2018-07-11] MEDS ORDERED: POTA8TER12 PO (10:07)
[2018-07-11] MEDS ORDERED: MAGN400S60 PO (10:07)
[2018-07-11] MEDS ORDERED: [UNRECOGNIZED DRUG - CODE] PO (10:07)
[2018-07-11] MEDS ORDERED: PIOG15TA24 PO (10:07)
[2018-07-11] MEDS ORDERED: IMO2 PO (10:07)
[2018-07-11] MEDS ORDERED: CRAN450C PO (10:07)
[2018-07-11] MEDS ORDERED: TAMS0.4C96 PO (10:07)
[2018-07-11] MEDS ORDERED: METO25TA PO (10:07)
[2018-07-11] MEDS ORDERED: MIRA50TE PO (10:07)
[2018-07-11] MEDS ORDERED: IBUP-2213 PO (10:07)
[2018-07-11] MEDS ORDERED: FURO-570 PO (10:07)
[2018-07-11] MEDS ORDERED: INSU100S22 SQ (10:07)
[2018-07-11] MEDS ORDERED: LIDOCAINE MPF 1% - 5 mL VIAL 5 ML ONE (10:15)
--- NOTE | 2018-07-11 10:18 | NUR ---
Dr. Rico re-evaluating patient at bedside.
[2018-07-11 11:07] LABS: HEMATOCRIT 38.3 % (36-52); HEMOGLOBIN 12.8 g/dL (12.0-18.0); LYMPHOCYTES # (AUTO) 0.6 K/uL (2.0-11.5); MEAN CORPUSCULAR HEMOGLOBIN 30 pg (27-31); MEAN CORPUSCULAR HGB CONC 34 g/dL (33-37); MONOCYTES # (AUTO) 0.9 K/uL (0.8-1.0); NEUTROPHILS # (AUTO) 9.5 K/uL (1.8-7.7); PLATELET COUNT (AUTO) 235 K/uL (140-450); RED BLOOD CELL COUNT(AUTO) 4.25 MIL/uL (4.20-6.10); RED CELL DISTRIBUTION WIDTH 14.5 % (11.6-13.7); WHITE BLOOD COUNT (AUTO) 10.9 K/uL (4.8-10.8)
--- NOTE | 2018-07-11 11:09 | NUR ---
URINE COLLECTED AND SENT TO LAB
[2018-07-11 11:23] LABS: LYMPHOCYTES % (AUTO) 5.1 % (20.5-51.1); NEUTROPHILS % (AUTO) 86.9 % (42.2-75.2)
[2018-07-11 11:27] LABS: ANION GAP 9.8 (8-16); CARBON DIOXIDE 27.4 mmol/L (21-32); CHLORIDE 98 mmol/L (98-107); CREATININE 1.2 mg/dL (0.7-1.3); GLUCOSE 395 mg/dL (74-106); POTASSIUM 4.2 mmol/L (3.5-5.1); SODIUM SERUM 131 mmol/L (136-145); UREA NITROGEN, BLOOD 27 mg/dL (7-18)
[2018-07-11 11:32] LABS: ALBUMIN 2.7 g/dL (3.4-5.0); ASPARTATE AMINOTRANSFERASE 21 U/L (15-37); TOTAL BILIRUBIN 0.4 mg/dL (0.0-1.0)
[2018-07-11 12:01] LABS: BILIRUBIN,URINE NEGATIVE (NEGATIVE); BLOOD, URINE NEGATIVE (NEGATIVE); COLOR,URINE YELLOW (YELLOW); LEUKOCYTE ESTERASE ,URINE TRACE (NEGATIVE); NITRITE, URINE POSITIVE (NEGATIVE); PH,URINE 6.5 (5.0-9.0); UGLUCOSE 3+ (NEGATIVE)
[2018-07-11] MEDS ORDERED: NACL 0.9% 1,000 ML IV ONE (12:10)
[2018-07-11 12:26] LABS: APPEARANCE,URINE SLIGHTLY HAZY (CLEAR)
[2018-07-11 12:28] LABS: RBC,URINE 0-5 /HPF (0-5)
[2018-07-11 13:20] VITALS: BP 134/59
--- NOTE | 2018-07-11 13:20 | NUR ---
Patient will be admitted to care of Dr White. Admited to Tele. Will go to room 107 B. Belongings list completed. Report to GEO Cook.
--- NOTE | 2018-07-11 13:20 | NUR ---
RECEIVED BED SIDE REPORT FROM DIRECTOR OF MANAGED SERVICES RN. PT CAME IN STABLE CONDITION VIA GURNEY. PT A/0 X4, SKIN INTACT, L BKA WITH SOCK PLACED ON IT, ON 2L NC WITH NO RESPIRATORY DISTRESS. IV R AC 20G RUNNING NS 500CC/HR, ON TELE MONITOR, LAST SUGAR 395, GEOMETRY PROFESSOR SAID NO INSULIN COVERAGE GIVEN. GAVE PT 10UNITS HUMALOG. LUNG SOUNDS RHONCHI, PRODUCTIVE COUGH WITH NO SPUTUM, PT EATING LUNCH, CALL LIGHT WITHIN REACH, WILL CONTINUE TO MONITOR
--- NOTE | 2018-07-11 13:50 | NUR ---
PT EATING LUNCH, NO S/S OF ACUTE DISTRESS
[2018-07-11] MEDS ORDERED: IBUPROFEN 600 MG TAB PO PRN (14:05)
[2018-07-11] MEDS ORDERED: EXENATIDE MICROSPHERES 2 MG SCH (14:05)
[2018-07-11] MEDS ORDERED: BISMUTH SUBSALICYLATE 15 ML UDBTL PO PRN (14:05)
[2018-07-11] MEDS ORDERED: ONDANSETRON 4 MG/2 ML VIAL IVP PRN (14:05)
[2018-07-11] MEDS ORDERED: MAGNESIUM HYDROXIDE 2400 MG/30 ML UDC PO PRN ×2 (14:05→23:10)
[2018-07-11] MEDS ORDERED: ACETAMINOPHEN 325 MG TAB PO PRN ×2 (14:05)
[2018-07-11] MEDS ORDERED: ONDANSETRON 4 MG TAB PO PRN (14:05)
[2018-07-11] MEDS ORDERED: LOPERAMIDE 2 MG CAP PO PRN (14:05)
[2018-07-11] MEDS ORDERED: BISACODYL 10 MG SUPP RC PRN (14:05)
[2018-07-11] MEDS ORDERED: DEXT 5% /NACL 0.9% 1,000 ML IV SCH (14:05)
[2018-07-11] MEDS ORDERED: LORazepam 2 MG/ML VIAL IVP PRN (14:05)
[2018-07-11] MEDS ORDERED: DEXTROSE 50% 50 ML SYR IVP PRN (14:05)
[2018-07-11] MEDS: INSULIN LISPRO SLIDING SCALE 100 UNITS/ML VIAL SUBQ PRN ×3 (14:34→20:50)
[2018-07-11] MEDS ORDERED: CLINICAL MONITORING MC PRN (14:45)
[2018-07-11 16:00] VITALS: BP 141/57
--- NOTE | 2018-07-11 16:12 | NUR ---
SUGAR 417 EVEN AFTER GIVING 10 UNITS HUMALOG INITIALLY. ANOTHER 10 UNITS OF HUMALOG GIVE. PAGED ABOUT POSSIBLY NEEDING MORE INSULIN COVERAGE, WILL WAIT FOR HIS CALL.
[2018-07-11] MEDS: BLOOD GLUCOSE MONITORING 1 DEV DEV FS SCH ×2 (16:30→20:38)
--- NOTE | 2018-07-11 16:50 | NUR ---
DR UREÑA CALLED BACK, REPORTED BG 417, 10 UNITS OF HUMALOG HAS BEEN GIVEN. NO ADDITIONAL COVERAGE WAS ORDERED. MADE DR AWARE HE ORDERED D5NS, HOWEVER PT IS EATING. DR SAID TO CHANGE ORDER TO NS 100ML/HR.
[2018-07-11] MEDS ORDERED: ACARBOSE 50 MG TAB PO SCH (17:00)
--- NOTE | 2018-07-11 18:05 | NUR ---
PT EATING DINNER, MIN ASSISTANCE PROVIDED.
--- NOTE | 2018-07-11 19:29 | NUR ---
GAVE BEDSIDE REPORT TO TURRET PUNCH PRESS OPERATOR RN. PT IN STABLE CONDITION
--- NOTE | 2018-07-11 19:29 | NUR ---
RECEIVED REPORT FROM MARYBEL GUARDADO DAYSHIFT NURSE AT BEDSIDE , FOR CONTINUITY OF CARE, PT IN STABLE CONDITION. Addendum: 07/11/18 at 2323 by Kim Lanza RN REPORT RECEIVED FROM JUAN C GUARDADO AND ENRIQUE GUARDADO DAYSHIFT NURSE AT BEDSIDE FOR CONTINUITY OF CARE, PT IN STABLE CONDITION.
[2018-07-11] MEDS: NACL 0.9% 1,000 ML IV SCH (19:36)
[2018-07-11 19:43] LABS: CREATINE KINASE MB 3.4 ng/mL (0-3.6)
[2018-07-11 20:00] VITALS: BP 134/56
--- NOTE | 2018-07-11 20:00 | NUR ---
PT IN BED IV SITE R AC 20G INTACT AND FLUSHED PATENT. NORMAL SALINE RUNNING AT 100MLS/HR. PT IS AOX4 AND HAS NO C/O OF PAIN ONLY COUGH WHICH IS NON PRODUCTIVE. V/S FOLLOWS T 97.6 P 97 R 18 B/P 134/56 02 93% ON ROOM AIR. PT LUNG SOUNDS DIMINISHED HIS BREATHING IS EVEN AND UNLABORED ON ROOM AIR. PT ABDOMEN SOFT AND BOWEL SOUNDS PRESENT. PT IS IN LOW BED WITH ALL FALLS PRECAUTIONS IN PLACE.
--- NOTE | 2018-07-11 20:28 | NUR ---
PT SLEEPING, NO SIGN OF SOB OR RESP DISTRESS NOTED AT THIS TIME. SP02 90%
[2018-07-11] MEDS: PIOGLITAZONE 15 MG TAB PO SCH (20:34)
[2018-07-11] MEDS: guaiFENesin 20 MG/ML UDC PO PRN (20:35)
[2018-07-11] MEDS: TAMSULOSIN 0.4 MG CAP PO SCH (20:35)
[2018-07-11] MEDS: FAMOTIDINE 20 MG TAB PO SCH (20:35)
--- NOTE | 2018-07-11 20:45 | NUR ---
PT GIVEN PO/PRN ROBITUSSIN. [facility] CALLED TO CONFIRM THAT PT GETS NEXT WEEKLY SHOT OF EXENATIDE IS DUE AT 07/13.WILL ENDORSE TO NEXT SHIFT F/U WITH [facility] REGADING IF THEY WANT PT TO HAVE THE SHOT FROM HOME OR NOT.
[2018-07-11] MEDS: INSULIN LANTUS 100 UNITS/ML 10 ML VIAL SUBQ SCH (20:52)
[2018-07-11] MEDS ORDERED: INSULIN GLARGINE HUM REC ANLOG U SQ SCH (21:00)
[2018-07-11] MEDS ORDERED: NON-FORMULARY ITEM (Ranitidine HCl (Zantac) 150 MG) PO SCH (21:00)
[2018-07-11] MEDS ORDERED: MENTHOL TP SCH (21:00)
[2018-07-11] MEDS ORDERED: PIOGLITAZONE HCL 15 MG PO SCH (21:00)
[2018-07-11] MEDS ORDERED: MIRABEGRON 50 MG PO SCH (21:00)
[2018-07-11] MEDS ORDERED: ZINC OXIDE TP SCH (21:00)
--- NOTE | 2018-07-11 21:00 | NUR ---
PT FINGERSTICK IS 356, PT GIVEN 10UNITS OF HUMALOG COVERAGE WELL LANTUS 14 ORDERED UNITS AT THIS TIME. PT ALSO GIVEN SCHEDULED ORDERED MEDICATION WITH MEDICATION EDUCATION PROVIDED TO PT. PT GIVEN ACTOS, FLOMAX AND PEPCID. PT ALSO GIVEN REQUESTED PRN ROBITUSSIN ORDERED FOR COUGHING PRN. WILL CONTINUE TO MONITOR RESIDENT FOR EFFECT.
[2018-07-12] VITALS: BP 140/64
--- NOTE | 2018-07-12 | NUR ---
PT IN BED SLEEPING BUT AROUSABLE TO NAME AND LIGHT TOUCH. ALL FALLS PRECAUTIONS IN PLACE. V/S FOLLOWS T 97.8 P 76 R 18 B/P 140/64 02 93% ON ROOM AIR. NO C/O VOICED AND AL REQUESTED NEEDS ATTENDED BY STAFF.
--- NOTE | 2018-07-12 03:07 | NUR ---
PT IN BED SLEEPING ALL FALLS PRECAUTIONS IN PLACE. NO S/S OF PAIN OR DISTRESS NOTED.
[2018-07-12 04:00] VITALS: BP 98/65
--- NOTE | 2018-07-12 04:00 | NUR ---
PT IN BED NO S/S OF PAIN OR DISTRESS NOTED V/S FOLLOWS T 98.1 P 70 R 18 B/P 98/65 02 90% ON ROOM AIR.
[2018-07-12] MEDS: PIOGLITAZONE 15 MG TAB PO SCH ×3 (05:44→21:22)
[2018-07-12] MEDS: NACL 0.9% 1,000 ML IV SCH ×2 (05:47→15:15)
[2018-07-12] MEDS: BLOOD GLUCOSE MONITORING 1 DEV DEV FS SCH ×4 (05:49→21:34)
--- NOTE | 2018-07-12 06:15 | NUR ---
FINGERSTICK GLUCOSE IS 358, PT GIVEN 10 UNITS OF HUMALOG COVERAGE.
[2018-07-12] MEDS: INSULIN LISPRO SLIDING SCALE 100 UNITS/ML VIAL SUBQ PRN ×4 (06:23→21:28)
--- NOTE | 2018-07-12 07:19 | NUR ---
REPORT GIVEN TO SABA GUARDADO DAYSHIFT NURSE AT BEDSIDE FOR CONTINUITY OF CARE, PT IN STABLE CONDITION.
[2018-07-12 07:20] LABS: HEMOGLOBIN 12.7 g/dL (12.0-18.0); LYMPHOCYTES # (AUTO) 0.4 K/uL (2.0-11.5); LYMPHOCYTES % (AUTO) 2.8 % (20.5-51.1); MEAN CORPUSCULAR HEMOGLOBIN 30 pg (27-31); MEAN CORPUSCULAR HGB CONC 33 g/dL (33-37); MEAN CORPUSCULAR VOLUME 90.2 fL (80-94); MONOCYTES # (AUTO) 0.5 K/uL (0.8-1.0); MONOCYTES % (AUTO) 3.6 % (1.7-9.3); NEUTROPHILS # (AUTO) 13.6 K/uL (1.8-7.7); NEUTROPHILS % (AUTO) 93.6 % (42.2-75.2); PLATELET COUNT (AUTO) 235 K/uL (140-450); RED BLOOD CELL COUNT(AUTO) 4.22 MIL/uL (4.20-6.10); RED CELL DISTRIBUTION WIDTH 14.5 % (11.6-13.7); WHITE BLOOD COUNT (AUTO) 14.5 K/uL (4.8-10.8)
--- NOTE | 2018-07-12 07:20 | NUR ---
RECEIVED BEDSIDE REPORT FROM GEO VERA. PATIENT ON TELE MONITOR AND STANDARD PRECAUTIONS IN PLACE. PATIENT AAOX4 AND COMMUNICATES APPROPRIATELY. PATIENT ON ROOM AIR, NO DISTRESS NOTED. PATIENT WITH L BKA AND SACRAL REDNESS. IV ON R HAND 20G INFUSING NS AT 100, IV ASYMPTOMATIC PATENT AND INTACT. PATIENT AMBULATORY AND CONTINENT WITH BEDSIDE URINAL. FALL RISK PROTOCOL IN PLACE. BED IN LOW POSITION, CALL LIGHT WITHIN REACH, SIDE RAILS X2 UP
[2018-07-12 07:51] LABS: ALBUMIN 2.1 g/dL (3.4-5.0); ANION GAP 9.6 (8-16); ASPARTATE AMINOTRANSFERASE 19 U/L (15-37); CARBON DIOXIDE 27.7 mmol/L (21-32); CHLORIDE 103 mmol/L (98-107); CREATININE 1.2 mg/dL (0.7-1.3); GLUCOSE 351 mg/dL (74-106); PHOSPHORUS 3.1 mg/dL (2.5-4.9); POTASSIUM 4.3 mmol/L (3.5-5.1); SODIUM SERUM 136 mmol/L (136-145); TOTAL BILIRUBIN 0.2 mg/dL (0.0-1.0); UREA NITROGEN, BLOOD 32 mg/dL (7-18)
[2018-07-12] MEDS: ASPIRIN 81 MG TAB.CHEW PO SCH (08:24)
[2018-07-12] MEDS: POTASSIUM CHLORIDE 8 MEQ TABER PO SCH (08:24)
[2018-07-12] MEDS: MULTIVITAMIN/MINERALS 1 TAB PO SCH (08:25)
[2018-07-12] MEDS: CALCIUM CARB/VIT-D 500 MG/200 IU 1 TAB PO SCH (08:25)
[2018-07-12] MEDS: LEVOTHYROXINE 0.1 MG TAB PO SCH (08:26)
[2018-07-12] MEDS: ATORVASTATIN 20 MG TAB PO SCH (08:26)
[2018-07-12] MEDS: amLODIPine 5 MG TAB PO SCH (08:27)
[2018-07-12] MEDS: LOSARTAN 50 MG TAB PO SCH (08:28)
[2018-07-12] MEDS: FAMOTIDINE 20 MG TAB PO SCH ×2 (08:29→21:23)
[2018-07-12] MEDS: guaiFENesin 20 MG/ML UDC PO PRN ×3 (08:33→21:24)
--- NOTE | 2018-07-12 08:38 | NUR ---
ADMINISTERED SCHEDULED MEDS. PATIENT NOW BRUSHING TEETH
[2018-07-12] MEDS ORDERED: [UNRECOGNIZED DRUG - OTHER] PO SCH (09:00)
[2018-07-12] MEDS ORDERED: CALCIUM CARBONATE PO SCH (09:00)
[2018-07-12] MEDS ORDERED: NON-FORMULARY ITEM (Lovastatin 40 MG) PO SCH (09:00)
[2018-07-12] MEDS ORDERED: NON-FORMULARY ITEM (Cranberry Fruit Concentrate (Cranberry) 450 MG) PO SCH (09:00)
[2018-07-12] MEDS ORDERED: FLUVOXAMINE MALEATE 100 MG PO SCH (09:00)
[2018-07-12] MEDS ORDERED: VITAMIN D3 PO SCH (09:00)
[2018-07-12] MEDS ORDERED: MULTIVIT WITH IRON MINERALS PO SCH (09:00)
[2018-07-12] MEDS ORDERED: FUROSEMIDE 40 MG TAB PO SCH (09:00)
[2018-07-12] MEDS: METOPROLOL SUCCINATE 50 MG TABER PO SCH (09:39)
[2018-07-12 09:55] VITALS: BP 131/69
--- NOTE | 2018-07-12 11:45 | NUR ---
PATIENT HAD BM
[2018-07-12 12:00] VITALS: BP 144/81
--- NOTE | 2018-07-12 12:10 | NUR ---
PATIENT HAS BEEN SCREENED AND CATEGORIZED MODERATE NUTRITION RISK. PATIENT WILL BE SEEN WITHIN 3-5 DAYS OF ADMISSION. 07/14/18ANGELICA RODRIGUEZ MBA, RD
[2018-07-12] MEDS ORDERED: MUPIROCIN CA NASAL 2% 1GM TUBE NS SCH (12:50)
[2018-07-12] MEDS ORDERED: CHLORHEXADINE GLUC 2% CLOTH TP SCH (12:50)
--- NOTE | 2018-07-12 12:53 | NUR ---
PATIENT WAS SITTING ON SIDE OF BED EATING LUNCH
[2018-07-12] MEDS: CHLORHEXADINE GLUC 2% CLOTH TP SCH (14:00)
[2018-07-12 14:58] LABS: CREATINE KINASE MB 1.6 ng/mL (0-3.6)
--- NOTE | 2018-07-12 15:29 | NUR ---
PATIENT GIVEN BED BATH
[2018-07-12 16:00] VITALS: BP 134/61
[2018-07-12] MEDS: MUPIROCIN CA NASAL 2% 1GM TUBE NS SCH (16:49)
--- NOTE | 2018-07-12 17:01 | NUR ---
PATIENT SITTING IN BED, NO DISTRESS NOTED, ON ROOM AIR. GIVEN ROBITUSSIN PRN FOR COUGH
--- NOTE | 2018-07-12 19:05 | NUR ---
GAVE BEDSIDE REPORT TO JODY FOR CONTINUITY OF CARE. PATIENT ENDORSED IN STABLE CONDITION
--- NOTE | 2018-07-12 19:05 | NUR ---
RECEIVED REPORT FROM SABA GUARDADO DAYSHIFT NURSE AT BEDSIDE FOR CONTINUITY OF CARE, PT IN STABLE CONDITION
[2018-07-12 20:00] VITALS: BP 127/63
--- NOTE | 2018-07-12 20:00 | NUR ---
PT IN BED, ALL FALLS PRECAUTIONS IN PLACE. PT IS ON ROOM AIR, LUNGS CLEAR BUT DIMINISHED. PT BOWEL SOUNDS PRESENT. HE IS ON ROOM AIR WITH RESPIRATIONS EVEN AND UNLABORED PT HAS IV SITE ON RAC 20G RUNNING NORMAL SALINE AT 100MLS/HR. PT HAS NO C/O OF PAIN . HE IS NOTED WITH A INTERMITTED, NON PRODUCTIVE COUGH. V/S FOLLOWS T 98.0 P 69 R 18 B/P 127/63 02 96%.
--- NOTE | 2018-07-12 20:30 | NUR ---
PT TURNED , CHANGED AND REPOSITIONED. BED LOW AND ALL FALLS PRECAUTIONS IN PLACE.
--- NOTE | 2018-07-12 21:00 | NUR ---
PT IN BED HIS FINGERSTICK IS 321. PT SAID HE ALREADY ATE HIS SNACK. PT GIVEN 8 UNITS OF HUMALOG COVERAGE WELL HIS LANTUS 14 UNITS. PT EDUCATION PROVIDED CONCERNING DIABETES AND PROVIDED INSULIN. PT VERBALIZED UNDERSTANDING. PT MIRANDA PAIN. ALL FALLS PRECAUTIONS IN PLACE AND CALL ODELL IN REACH.
[2018-07-12] MEDS: TAMSULOSIN 0.4 MG CAP PO SCH (21:22)
[2018-07-12] MEDS: MYRBETRIQ 25 MG PO SCH (21:23)
--- NOTE | 2018-07-12 21:30 | NUR ---
PT GIVEN AL DUE MEDS OF ACTOS, FLOMAX, MYRBETRIC, PEPCID AND ROBITUSSIN FOR DRY UNPRODUCTIVE COUGH.
[2018-07-12] MEDS: INSULIN LANTUS 100 UNITS/ML 10 ML VIAL SUBQ SCH (21:31)
--- NOTE | 2018-07-12 23:17 | NUR ---
PT C/O OF NOT BEING ABLE TO SLEEP AND FEELING ANXIOUS, PT GIVEN IVP PRN ATIVAN. PT ALSO CONTINUES TO HAVE A DRY INTERMITTED NON PRODUCTIVE COUGH. PT OFFERED AND ACCEPTED SUPPLEMENTAL O2 FOR COMFORT MEASURES.
[2018-07-13] VITALS: BP 153/54
--- NOTE | 2018-07-13 00:30 | NUR ---
PT IN BED ASLEEP WITH 2 LITERS VIA N/C. ALL FALLS AND CONTACT PRECAUTIONS IN PLACE. V/S FOLLOWS T 97.6 P 66 R 18 B/P 153/54 02 94% WITH 2 LITERS VIA N/C. PT ASLEEP WITH NO S/S OF PAIN OR DISTRESS NOTED.
[2018-07-13] MEDS: NACL 0.9% 1,000 ML IV SCH ×3 (03:48→23:08)
[2018-07-13 04:00] VITALS: BP 147/68
--- NOTE | 2018-07-13 04:00 | NUR ---
PT IN BED SLEEPING NO S/S OF PAIN OR DISTRESS NOTED. PT AROUSABLE BY NAME AND LIGHT TOUCH. ALL FALLS AND CONTACT PRECAUTIN OBSERVED. V/S FOLLOWS T 97.9 P 73 R 18 B/P 147/68 02 90% ON ROOM AIR.
[2018-07-13] MEDS: PIOGLITAZONE 15 MG TAB PO SCH ×3 (05:16→20:47)
[2018-07-13] MEDS: FLUVOXAMINE MALEATE 100 MG PO SCH (05:17)
[2018-07-13] MEDS: BLOOD GLUCOSE MONITORING 1 DEV DEV FS SCH ×4 (06:10→20:43)
--- NOTE | 2018-07-13 06:15 | NUR ---
PT IN BED AWAKE. PT GIVEN DUE MEDS OF ACTOS AND AND FLUVOXAMINE. FINGERSTICK IS 167. PT GIVEN 2 UNITS OF HUMALOG COVERAGE.
[2018-07-13] MEDS: INSULIN LISPRO SLIDING SCALE 100 UNITS/ML VIAL SUBQ PRN ×4 (06:22→21:35)
[2018-07-13] MEDS: guaiFENesin 20 MG/ML UDC PO PRN (06:24)
[2018-07-13 07:07] LABS: EOSINOPHILS % (AUTO) 0.2 % (0.0-4.0); HEMATOCRIT 36.8 % (36-52); HEMOGLOBIN 12.2 g/dL (12.0-18.0); LYMPHOCYTES # (AUTO) 0.7 K/uL (2.0-11.5); LYMPHOCYTES % (AUTO) 4.7 % (20.5-51.1); MEAN CORPUSCULAR HEMOGLOBIN 30 pg (27-31); MEAN CORPUSCULAR HGB CONC 33 g/dL (33-37); MEAN CORPUSCULAR VOLUME 90.3 fL (80-94); MONOCYTES # (AUTO) 1.2 K/uL (0.8-1.0); MONOCYTES % (AUTO) 8.3 % (1.7-9.3); NEUTROPHILS # (AUTO) 12.6 K/uL (1.8-7.7); NEUTROPHILS % (AUTO) 86.8 % (42.2-75.2); PLATELET COUNT (AUTO) 239 K/uL (140-450); RED BLOOD CELL COUNT(AUTO) 4.08 MIL/uL (4.20-6.10); RED CELL DISTRIBUTION WIDTH 14.7 % (11.6-13.7); WHITE BLOOD COUNT (AUTO) 14.5 K/uL (4.8-10.8)
--- NOTE | 2018-07-13 07:21 | NUR ---
REPORT GIVEN TO TARUN RN DAYSHIFT NURSE AT BEDSIDE FOR CONTINUITY OF CARE, PT IN STABLE CONDITION.
--- NOTE | 2018-07-13 07:23 | NUR ---
RECEIVED BEDSIDE REPORT FROM SUBSTANCE ABUSE THERAPIST GEO VERA FOR CONTINUITY OF CARE. PATIENT AAOX4 AND COMMUNICATES APPROPRIATELY. PATIENT IS RESTING ON BED AT THIS TIME. DENIES PAIN AND SOB. RESPIRATION EVEN AND UNLABORED ON 2 LPM VIA NC. NO SIGNS OF DISTRESS DISTRESS NOTED. IV ON RAC 20G, INFUSING NS AT 100, IV ASYMPTOMATIC PATENT AND INTACT. PATIENT AMBULATORY WITH ASSIST AND CONTINENT WITH BEDSIDE URINAL. DISCUSSED PLAN OF CARE WITH PATIENT, AND PATIENT SAID OK. PATIENT ON TELE MONITOR AND CONTACT PRECAUTION FOR MRSA NARES. FALL RISK PROTOCOL IN PLACE. BED IN LOW POSITION, CALL LIGHT WITHIN REACH, SIDE RAILS X2 UP. INSTRUCTED PATIENT TO USE THE CALL LIGHT FOR ANY ASSISTANCE AND PATIENT WAS AWARE.
[2018-07-13 08:01] VITALS: BP 155/71
[2018-07-13 08:04] LABS: ANION GAP 9.8 (8-16); CARBON DIOXIDE 27.1 mmol/L (21-32); CHLORIDE 104 mmol/L (98-107); CREATININE 1.1 mg/dL (0.7-1.3); GLUCOSE 194 mg/dL (74-106); POTASSIUM 3.9 mmol/L (3.5-5.1); SODIUM SERUM 137 mmol/L (136-145); UREA NITROGEN, BLOOD 30 mg/dL (7-18)
[2018-07-13] MEDS: CALCIUM CARB/VIT-D 500 MG/200 IU 1 TAB PO SCH (08:43)
[2018-07-13] MEDS: ATORVASTATIN 20 MG TAB PO SCH (08:43)
[2018-07-13] MEDS: FAMOTIDINE 20 MG TAB PO SCH ×2 (08:44→20:47)
[2018-07-13] MEDS: LEVOTHYROXINE 0.1 MG TAB PO SCH (08:44)
[2018-07-13] MEDS: MULTIVITAMIN/MINERALS 1 TAB PO SCH (08:44)
[2018-07-13] MEDS: ASPIRIN 81 MG TAB.CHEW PO SCH (08:45)
[2018-07-13] MEDS: METOPROLOL SUCCINATE 50 MG TABER PO SCH (08:45)
[2018-07-13] MEDS: LOSARTAN 50 MG TAB PO SCH (08:45)
[2018-07-13] MEDS: amLODIPine 5 MG TAB PO SCH (08:45)
[2018-07-13] MEDS: POTASSIUM CHLORIDE 8 MEQ TABER PO SCH (08:46)
[2018-07-13] MEDS ORDERED: MUPIROCIN CA NASAL 2% 1GM TUBE NS SCH (09:00)
[2018-07-13] MEDS ORDERED: CHLORHEXADINE GLUC 2% CLOTH TP SCH (09:00)
--- NOTE | 2018-07-13 09:05 | NUR ---
ADMINISTERED MEDS PER MD ORDER, PATIENT TOLERATED WELL. PATIENT IS SITTING UP ON BED AND EATING HIS BREAKFAST. DENIES PAIN AND SOB. HE IS ON RA AT THIS TIME. RESPIRATION EVEN AND UNLABORED. INTERMITTENT COUGHS NOTED. BED IN LOW POSITION AND CALL LIGHT WITHIN IN REACH. BED ALARM ACTIVATED. URANAL IS ON THE TABLE. INSTRUCTED PATIENT TO USE THE CALL LIGHT FOR ANY ASSISTANCE AND PATIENT WAS AWARE.
--- NOTE | 2018-07-13 11:10 | NUR ---
DR NIRANJAN Schwartz WAS AT BEDSIDE AND ASSESSING PATIENT. PER DR UREÑA, DUE TO PATIENT'S INTERMITTENT COUGH, CHANGED ROBITUSSIN FROM Q6H PRN TO Q4H PRN. READ BACK AND CONFIRMED WITH DR UREÑA AT BESIDE. PATIENT IS RESTING ON BED AT THIS TIME. ON 2 LPM VIA NC AND SPO2 97%. INTERMITTENT COUGHS NOTED. SAFETY MEASURES IN PLACE. TELE MONITOR ATTACHED.
[2018-07-13] MEDS ORDERED: guaiFENesin 20 MG/ML UDC PO PRN (11:15)
[2018-07-13 12:00] VITALS: BP 134/60
--- NOTE | 2018-07-13 13:04 | NUR ---
ADMINISTERED MED PER MD ORDER, PATIENT TOLERATED WELL. PATIENT SAID, " I FEEL VERY TIRED. LAST NIGHT I COULDN'T SLEEP WELL THAT I KEPT ON COUGHING. I WILL TRY TO GET SOME REST NOW." HELPED POSITION PATIENT COMFORTABLY ON BED. PATIENT DENIES PAIN AND SOB. RESPIRATION EVEN AND UNLABORED, INTERMITTENT COUGHS NOTED. NO SIGNS OF DISTRESS NOTED. SAFETY MEASURES IN PLACE. BED IN LOW POSITION AND CALL LIGHT WITHIN REACH.
[2018-07-13] MEDS: MUPIROCIN CA NASAL 2% 1GM TUBE NS SCH (13:19)
[2018-07-13] MEDS: CHLORHEXADINE GLUC 2% CLOTH TP SCH (13:20)
--- NOTE | 2018-07-13 14:02 | NUR ---
RECEIVED A CALL FROM LAB AT 1351 FOR MDRO POSITIVE FOR URINE CULTURE. REPORTED TO DR NIRANJAN Smith AND DR NIRANJAN Smith WAS AWARE OF CRITICAL RESULT. NO ORDER RECEIVED AT THIS TIME.
--- NOTE | 2018-07-13 14:40 | NUR ---
DR MARTINES IS AT BEDSIDE AND ASSESSING PATIENT. PER DR ESPINAL, VERBAL ORDER DUONEB TREATMENT FOR PATIENT Q4HR. RECEIVED VERBAL ORDER, READ BACK AND CONFIRMED ORDER WITH DR ESPINAL AT BEDSIDE. PATIENT IS RESTING ON BED AT THIS TIME ON 2 LPM VIA NC AND SPO2 IS 96%. DENIES PAIN AND SOB. NO SIGNS OF DISTRESS NOTED. SAFETY MEASURES IN PLACE. BED IN LOW POSITION AND CALL LIGHT WITHIN REACH.
--- NOTE | 2018-07-13 14:55 | NUR ---
CALLED PATIENT'S UNEMPLOYMENT BENEFITS CLAIMS TAKER DEENA AND INQUIRED ABOUT THE DIABETES MEDICINE ACARBOSE AND ZINC OXIDE CREAM. PER DEENA, SHE WILL BRING THOSE HOME MEDS IN TODAY, BUT SHE IS NOT SURE THE TIME SHE WILL COME BY. NOTIFIED PHARMACIST JAYSON ON ABOVE INFOR.
[2018-07-13] MEDS: ALBUTEROL SULFATE/IPRATROPIU 3 ML SOL IH SCH ×3 (15:10→23:23)
--- NOTE | 2018-07-13 15:15 | NUR ---
RT WAS PROVIDING BREATHING TREATMENT TO PATIENT. NO SIGNS OF DISTRESS NOTED. SAFETY MEASURES IN PLACE. BED IN LOW POSITION AND CALL LIGHT WITHIN REACH. INSTRUCTED PATIENT TO USE THE CALL LIGHT FOR ANY ASSISTANCE AND PATIENT WAS AWARE.
[2018-07-13 16:00] VITALS: BP 143/64
--- NOTE | 2018-07-13 17:14 | NUR ---
PATIENT IS RESTING ON BED AT THIS TIME. RESPIRATION EVEN AND UNLABORED, SPO2 IS 95% ON RA. NO SIGNS OF DISTRESS NOTED. SAFETY MEASURES IN PLACE. BED IN LOW POSITION AND CALL LIGHT WITHIN REACH.
--- NOTE | 2018-07-13 18:32 | NUR ---
INSTRUCTED VISTORS TO PUT ON PPE PRIOR ENTER TO PATIENT'S ROOM. BOTH VISITORS WORE PPE. PATIENT IS TALKING TO FOLDER SEAMER DEENA AND VISITOR BY BEDSIDE. NO SIGNS OF DISTRESS NOTED. SAFETY MEASURES IN PLACE. BROUGHT HOME MEDS TO PHARMACY.
[2018-07-13] MEDS ORDERED: ACARBOSE 50 MG PO SCH (18:39)
[2018-07-13] MEDS ORDERED: BYDUREON SUBQ SCH (18:45)
--- NOTE | 2018-07-13 19:20 | NUR ---
ENDORSED PATIENT TO SLIP LASTER NURSE FOR CONTINUITY OF CARE. PATIENT IS IN STABLE CONDITION. SAFETY MEASURES IN PLACE. BED IN LOW POSITION AND CALL LIGHT WITHIN REACH.
--- NOTE | 2018-07-13 19:21 | NUR ---
RECEIVED REPORT FROM AM NURSE. PT SITTING IN BED, AWAKE, ALERT AND ORIENTED X4. PT ON ROOM AIR. PT COUGHING INTERMITTENTLY. SUCTION AT BEDSIDE. RIGHT AC 20G INTACT AND INFUSING WELL. SAFETY MEASURES IN PLACE, YELLOW GOWN, NON-SLIP SOCKS, BED IN LOW POSITION. URINAL AT BEDSIDE, CALL LIGHT WITHIN REACH. WILL CONTINUE TO MONITOR.
--- NOTE | 2018-07-13 20:30 | NUR ---
PT 02 STATING AT 89, PLACED PT ON 2L VIA N.C. EMPTIED URINAL. ALL NEEDS ATTENDED TO. SAFETY MEASURE IN PLACE. CALL LIGHT WITHIN REACH. WILL CONTINUE TO MONITOR.
[2018-07-13] MEDS: TAMSULOSIN 0.4 MG CAP PO SCH (20:47)
[2018-07-13] MEDS: MYRBETRIQ 25 MG PO SCH (20:48)
[2018-07-13] MEDS: INSULIN LANTUS 100 UNITS/ML 10 ML VIAL SUBQ SCH (20:51)
--- NOTE | 2018-07-13 22:15 | NUR ---
ROUNDED ON PT. PT SLEEPING IN BED. PT SNORING, BREATHING EQUAL AND UNLABORED. PT 02 STATING AT 94% ON 2L N.C. SAFETY MEASURES IN PLACE. CALL LIGHT WITHIN REACH. WILL CONTINUE TO MONITOR.
[2018-07-14 00:10] VITALS: BP 142/65
--- NOTE | 2018-07-14 00:20 | NUR ---
VITALS TAKEN. PT URINATED IN BED. PT CLEANED AND BEDDING CHANGED. PT REPOSITIONED ON RIGHT LATERAL SIDE TO OFF LOAD PRESSURE ON SACRAL AREA. NOTED SCROTAL REDNESS. WILL CONTINUE TO MONITOR.
--- NOTE | 2018-07-14 02:05 | NUR ---
ROUNDED ON PT. PT SLEEPING IN BED. PT ON 2L O2 VIA N.C STATING AT 94%. NO VISIBLE SIGNS OF DISTRESS. BREATHING EQUAL AND UNLABORED. URINAL AT BEDSIDE. SAFETY MEASURES IN PLACE. CALL LIGHT WITHIN REACH. WILL CONTINUE TO MONITOR.
[2018-07-14] MEDS: ALBUTEROL SULFATE/IPRATROPIU 3 ML SOL IH SCH ×6 (02:42→23:00)
--- NOTE | 2018-07-14 03:20 | NUR ---
RT CALLED TO INFORM THAT PT URINATED IN THE BED. PT CHANGED AND CLEANED. PT REPOSITIONED TO LEFT LATERAL TO OFF LOAD PRESSURE AREAS. SAFETY MEASURES IN PLACE. URINAL AT BEDSIDE. CALL LIGHT WITHIN REACH. WILL CONTINUE TO MONITOR.
--- NOTE | 2018-07-14 05:30 | NUR ---
PT URINATED IN BED. PT CHANGED AND CLEANED. PT REPOSITIONED. CALL LIGHT WITHIN REACH. SAFETY MEASURES IN PLACE.
[2018-07-14] MEDS: PIOGLITAZONE 15 MG TAB PO SCH ×3 (05:44→22:01)
[2018-07-14] MEDS ORDERED: ACARBOSE 50 MG TAB PO SCH (07:00)
--- NOTE | 2018-07-14 07:10 | NUR ---
ENDORSED TO AM NURSE. PT IN STABLE CONDITION.
[2018-07-14] MEDS: NACL 0.9% 1,000 ML IV SCH (07:15)
[2018-07-14] MEDS: BLOOD GLUCOSE MONITORING 1 DEV DEV FS SCH ×4 (07:22→21:00)
[2018-07-14] MEDS: ACARBOSE 50 MG PO SCH ×3 (07:23→17:05)
[2018-07-14] MEDS: FLUVOXAMINE MALEATE 100 MG PO SCH (07:23)
--- NOTE | 2018-07-14 07:35 | NUR ---
RECEIVED REPORT FROM CREATIVE CONSULTANT NURSE. PT AWAKE, ALERT, ORIENTED X4. RESPIRATIONS EVEN AND UNLABORED ON 2L/NC. O2 TITRATED DOWN TO 1L/NC. WILL CONTINUE TO MONITOR. SKIN DRY AND WARM. IV PATENT AND INTACT. PT DENIES PAIN, N/V. POC WAS DISCUSSED WITH PATIENT. BED AT LOW POSITION. SIDERAILS X2 ARE UP. CALL LIGHT WITHIN REACH.
[2018-07-14 08:00] VITALS: BP 146/67
[2018-07-14] MEDS: POTASSIUM CHLORIDE 8 MEQ TABER PO SCH (09:10)
[2018-07-14] MEDS: ATORVASTATIN 20 MG TAB PO SCH (09:12)
[2018-07-14] MEDS: LOSARTAN 50 MG TAB PO SCH (09:12)
[2018-07-14] MEDS: FAMOTIDINE 20 MG TAB PO SCH ×2 (09:13→21:39)
[2018-07-14] MEDS: LEVOTHYROXINE 0.1 MG TAB PO SCH (09:13)
[2018-07-14] MEDS: ASPIRIN 81 MG TAB.CHEW PO SCH (09:13)
[2018-07-14] MEDS: CALCIUM CARB/VIT-D 500 MG/200 IU 1 TAB PO SCH (09:13)
[2018-07-14] MEDS: METOPROLOL SUCCINATE 50 MG TABER PO SCH (09:14)
[2018-07-14] MEDS: MULTIVITAMIN/MINERALS 1 TAB PO SCH (09:14)
[2018-07-14] MEDS: amLODIPine 5 MG TAB PO SCH (09:15)
--- NOTE | 2018-07-14 09:15 | NUR ---
PATIENT WAS AWAKE, ALERT. RESPIRATION EVEN, UNLABOR ON 2L NC. NO DISTRESS NOTED AT THIS TIME. MEDS WERE GIVEN PER ORDER
--- NOTE | 2018-07-14 11:20 | NUR ---
PT ALERT, AWAKE IN BED. NO DISTRESS NOTED AT THIS TIME. ASSISTED PT IN A SITTING POSITION. BEDPAN WAS GIVEN PER PATIENT REQUEST. BED IN LOW POSITION. CALL LIGHT WITHIN REACH.
[2018-07-14] MEDS: MUPIROCIN CA NASAL 2% 1GM TUBE NS SCH (12:43)
[2018-07-14] MEDS: CHLORHEXADINE GLUC 2% CLOTH TP SCH (12:44)
--- NOTE | 2018-07-14 14:05 | NUR ---
PT ASLEEP IN BED. RESPIRATIONS EVEN AND UNLABORED. NO S/S OF DISTRESS. BED IN LOW POSITION, CALL LIGHT WITHIN REACH.
--- NOTE | 2018-07-14 15:30 | NUR ---
SAT O2 97% POST TXT, TITRATED O2 FROM 2 LITERS TO 1 LITER NC.
--- NOTE | 2018-07-14 15:58 | NUR ---
PT SITTING UPRIGHT IN BED. RESPIRATIONS UNLABORED AND EVEN ON 1L/NC. NO S/S OF DISTRESS AT THIS TIME. SAFETY MEASURES IN PLACE, BED ON LOW POSITION, AND CALL LIGHT WITHIN REACH.
[2018-07-14 16:00] VITALS: BP 135/59
[2018-07-14] MEDS: INSULIN LISPRO SLIDING SCALE 100 UNITS/ML VIAL SUBQ PRN ×2 (17:15→22:11)
--- NOTE | 2018-07-14 18:15 | NUR ---
PT ALERT, AWAKE. ASSISTED PATIENT IN UPRIGHT POSITION TO VOID IN URINAL. NO S/S OF DISTRESS. NO C/O PAIN AT THIS TIME. IV PATENT AND INTACT, NO REDNESS OR SWELLING TO AREA. CALL LIGHT WITHIN REACH.
--- NOTE | 2018-07-14 19:17 | NUR ---
ENDORSEMENT WAS GIVEN TO MEDICAL IMAGING SPECIALIST NURSE. PATIENT IS STABLE AT THIS TIME.
--- NOTE | 2018-07-14 19:18 | NUR ---
RECD. RESTING IN BED, AWAKE, A/OX3. RESPIRATION EVEN AND UNLABORED. ON 02 AT 1 LITER VIA N/C, 02 SAT - 93%. WITH OCCASIONAL UNPRODUCTIVE COUGHING. LUNGS CLEAR ON BILATERAL AUSCULTATION. IV SALINE LOCK AT THE RIGHT AC G 20 PATENT AND INTACT. 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 SAFETY MEASURES ENFORCED. USES THE URINAL. INSTRUCTED TO CALL NURSE WHEN NEEDING HELP. PLAN OF CARE FOR THE SHIFT DISCUSSED. VERBALIZED UNDERSTANDING. DENIES PAIN 0/10.
--- NOTE | 2018-07-14 20:20 | NUR ---
Patient's Plan of Care was discussed and reviewed with LODGE ATTENDANT: PARTH EARL
--- NOTE | 2018-07-14 20:30 | NUR ---
REMINDED TO TRY TO SPIT PHLEGM FOR SPUTUM TEST TO BE SENT TO LAB. STATED HE IS COUGHING BUT NO PHLEGM COMES OUT. SPOKE WITH RT IF HE CAN TRY TO INDUCED SPUTUM FOR THE TEST.
--- NOTE | 2018-07-14 21:00 | NUR ---
SNACK GIVEN FOR THE NIGHT, ATE 100%.
[2018-07-14] MEDS: TAMSULOSIN 0.4 MG CAP PO SCH (21:39)
--- NOTE | 2018-07-14 21:39 | NUR ---
DUE PO MEDICATIONS GIVEN.
[2018-07-14] MEDS: MYRBETRIQ 25 MG PO SCH (21:41)
[2018-07-14] MEDS: INSULIN LANTUS 100 UNITS/ML 10 ML VIAL SUBQ SCH (22:09)
--- NOTE | 2018-07-14 22:15 | NUR ---
WITH COUGHING, MEDICATED WITH ROBITUSSIN ORDERED.
--- NOTE | 2018-07-14 22:25 | NUR ---
DR. BUTTERFIELD CAME AND CHECKED PATIENT, NO NEW ORDER MADE, JUST CONTINUE PRESENT ANTIBIOTICS.
--- NOTE | 2018-07-14 23:15 | NUR ---
RESTING IN BED, DECREASED COUGHING NOTED.
[2018-07-15] VITALS: BP 147/57
--- NOTE | 2018-07-15 | NUR ---
SLEEPING COMFORTABLY IN BED.
[2018-07-15] MEDS: ALBUTEROL SULFATE/IPRATROPIU 3 ML SOL IH SCH ×4 (03:00→15:10)
--- NOTE | 2018-07-15 03:00 | NUR ---
ASSISTED WITH BEDPAN TO BM. ONLY VERY SMALL BM. CLEANSED AND MADE COMFORTABLE IN BED.
[2018-07-15] MEDS: PIOGLITAZONE 15 MG TAB PO SCH ×2 (05:00→14:34)
[2018-07-15] MEDS: BLOOD GLUCOSE MONITORING 1 DEV DEV FS SCH ×3 (05:34→16:31)
[2018-07-15] MEDS: ACARBOSE 50 MG PO SCH ×3 (06:23→16:33)
[2018-07-15] MEDS: FLUVOXAMINE MALEATE 100 MG PO SCH (06:24)
--- NOTE | 2018-07-15 06:54 | NUR ---
CONDITION REMAIN STABLE. STILL WITH OCCASIONAL UNPRODUCTIVE COUGHING. NO SOB NOTED DURING SHIFT. WILL ENDORSE TO AM NURSE FOR CONTINUITY OF CARE.
[2018-07-15 07:04] LABS: EOSINOPHILS # (AUTO) 0.4 K/uL (0-0.4); EOSINOPHILS % (AUTO) 4.7 % (0.0-4.0); HEMATOCRIT 31.6 % (36-52); HEMOGLOBIN 10.8 g/dL (12.0-18.0); LYMPHOCYTES # (AUTO) 0.9 K/uL (2.0-11.5); LYMPHOCYTES % (AUTO) 10.9 % (20.5-51.1); MEAN CORPUSCULAR HEMOGLOBIN 31 pg (27-31); MEAN CORPUSCULAR HGB CONC 34 g/dL (33-37); MEAN CORPUSCULAR VOLUME 90.5 fL (80-94); MONOCYTES % (AUTO) 12.1 % (1.7-9.3); NEUTROPHILS # (AUTO) 5.8 K/uL (1.8-7.7); NEUTROPHILS % (AUTO) 72.3 % (42.2-75.2); PLATELET COUNT (AUTO) 221 K/uL (140-450); RED BLOOD CELL COUNT(AUTO) 3.49 MIL/uL (4.20-6.10); RED CELL DISTRIBUTION WIDTH 14.9 % (11.6-13.7)
[2018-07-15 07:08] LABS: CREATININE 1.1 mg/dL (0.7-1.3); GLUCOSE 121 mg/dL (74-106); UREA NITROGEN, BLOOD 20 mg/dL (7-18)
[2018-07-15 07:16] LABS: ANION GAP 7.6 (8-16); CARBON DIOXIDE 30.3 mmol/L (21-32); CHLORIDE 103 mmol/L (98-107); POTASSIUM 3.9 mmol/L (3.5-5.1); SODIUM SERUM 137 mmol/L (136-145)
--- NOTE | 2018-07-15 07:20 | NUR ---
RECEIVED PT FROM INTERNET MEDIA PLANNER NURSE FOR CONTINUITY OF CARE, CONTACT ISOLATION. PT LYING IN BED, AWAKE AND RESTING WITH 1L O2 VIA NC. IV ON RIGHT AC 20 GA SALINE LOCK. BED IN LOW POSITION, SIDE RAILS ARE UP, AND CALL LIGHT WITHIN PT'S REACH. NO SIGNS OF DISTRESS. WILL CONTINUE TO MONITOR PT.
[2018-07-15 08:00] VITALS: BP 148/67
[2018-07-15] MEDS: ASPIRIN 81 MG TAB.CHEW PO SCH (09:21)
[2018-07-15] MEDS: CALCIUM CARB/VIT-D 500 MG/200 IU 1 TAB PO SCH (09:21)
[2018-07-15] MEDS: MULTIVITAMIN/MINERALS 1 TAB PO SCH (09:21)
[2018-07-15] MEDS: LOSARTAN 50 MG TAB PO SCH (09:22)
[2018-07-15] MEDS: LEVOTHYROXINE 0.1 MG TAB PO SCH (09:22)
[2018-07-15] MEDS: FAMOTIDINE 20 MG TAB PO SCH (09:23)
[2018-07-15] MEDS: POTASSIUM CHLORIDE 8 MEQ TABER PO SCH (09:23)
[2018-07-15] MEDS: amLODIPine 5 MG TAB PO SCH (09:23)
[2018-07-15] MEDS: ATORVASTATIN 20 MG TAB PO SCH (09:24)
--- NOTE | 2018-07-15 09:30 | NUR ---
PT AWAKE LYING IN BED WATCHING TV. ADMINISTERED MEDICATIONS WITH VS BP 140/59, P 77, O2 98% ON 1L NC. MEDICATIONS TOLERATED WELL. IV ABX ADMINISTERED PIGGYBACK. PT WILL HAVE PT EVALUATION LEFT LEG PROSTHESIS AT BEDSIDE. WILL CONTINUE TO MONITOR.
[2018-07-15] MEDS: METOPROLOL SUCCINATE 50 MG TABER PO SCH (09:37)
--- NOTE | 2018-07-15 09:45 | NUR ---
PT EVALUATION IS BEING DONE TO PATIENT WITH THE MANAGER EDUCATIONAL AT THE BEDSIDE.
--- NOTE | 2018-07-15 11:50 | NUR ---
MONITORED BLOOD GLUCOSE CHECK. PATIENT AWAKE, ALERT, SITTING UP IN BED EATING LUNCH. SIDE RAILS ARE UP, INSTRUCTED TO USE CALL LIGHT, CALL LIGHT WITHIN REACH, AND BED IN LOW POSITION. WILL CONTINUE TO MONITOR PATIENT.
[2018-07-15] MEDS: INSULIN LISPRO SLIDING SCALE 100 UNITS/ML VIAL SUBQ PRN (11:53)
--- NOTE | 2018-07-15 13:24 | NUR ---
Medical Physics Professor Note: Late entry for 07/14/18: Per Basket Braider from [facility] (intermediate care facility) Tamy Santamaria patient has been living at facility for almost 4 years. Patient's pcp is Dr. White and Dr. White follows up with patient at facility once a month. Patient has a sister named Willow Walden and a niece named Eleanor Barton. Patient has a hospital bed, wheelchair, walker, and home O2 at [facility]. Patient's case management director at [facility] is Sarah Andrews . 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 [facility]'s transportation is available 08/09. Prior to hospital admission patient was receiving physical therapy at [facility]. I called and spoke with Sarah Andrews. She reported she does not have any questions or concerns at this time. Durable Medical Equipment Technician and/or Patient Access Associate will follow up as needed.
[2018-07-15] MEDS: MUPIROCIN CA NASAL 2% 1GM TUBE NS SCH (14:35)
[2018-07-15] MEDS: CHLORHEXADINE GLUC 2% CLOTH TP SCH (14:36)
--- NOTE | 2018-07-15 15:17 | NUR ---
PATIENT REMOVED NASAL CANULA AND IS SAT 97% ON ROOM AIR. O2 NO LONGER INDICATED.
--- NOTE | 2018-07-15 15:48 | NUR ---
07/15/18 RD INITIAL ASSESSMENT COMPLETED PLEASE REFER TO NUTRITION ASSESSMENT UNDER CARE ACTIVITY FOR ESTIMATED NUTRITIONAL NEEDS. 1. CONTINUE CCHO 60 GM AND CARDIAC DIET TOLERATED 2. RD TO FOLLOW-UP 5-7 DAYS, LOW RISK ADELAIDE ALEXANDER RD
[2018-07-15 16:00] VITALS: BP 136/56
--- NOTE | 2018-07-15 16:26 | NUR ---
Crisis Worker Note: I informed Sarah Andrews from [facility] of 's snf order, she stated patient can be referred to [facility] . Addendum: 07/15/18 at 1636 by Debra Willoughby SS correction: Brian
--- NOTE | 2018-07-15 16:30 | NUR ---
MONITORED BLOOD GLUCOSE. PATIENT AWAKE, LYING IN BED, RESTING, DENIES ANY PAIN. BED IN LOW POSITION, SIDE RAILS ARE UP, AND CALL LIGHT WITHIN REACH. WILL CONTINUE TO MONITOR PATIENT.
--- NOTE | 2018-07-15 16:54 | NUR ---
Per Financial Sales Assistant Peace, patient has MDRO Urine and MRSA NARES. I spoke to Tuyet [phone] who stated that patient would have room 220C. I told Tuyet that patient's [facility] Financial Sales Assistant was Sarah Melara and provided her with the number [phone]. Tuyet said that patient's doctor was Dr. Carey and that she would coordinate transportation with patient's charge nurse. I made charge nurse aware of this information. Wool Batting Worker/Financial Sales Assistant will follow up as necessary.
--- NOTE | 2018-07-15 17:02 | NUR ---
Hospital Supervisor Note: I informed Clinical Physician Assistant from [facility] (intermediate care facility) Tamy Santamaria plan is to transfer patient to [facility] today.
--- NOTE | 2018-07-15 18:15 | NUR ---
PLACED A CALL TO GIVE REPORT TO [place] [address] [address] # [phone]. PATIENT TRANSFER FOR IV ANTIBIOTICS ROCEPHIN FOR 7 DAYS, PATIENT WILL BE PLACED TO RM 220C UNDER THE CARE OF DR. FRAZIER. SPOKE TO LVN. JAMIR AND VERBALIZED UNDERSTANDING FOR CONTINUITY OF CARE.
--- NOTE | 2018-07-15 19:30 | NUR ---
PATIENT PICKED UP BY [facility]IA [facility]. PATIENT AWAKE, ALERT, AND IN STABLE CONDITION UPON DISCHARGE. KEPT IV ON RIGHT AC, PATENT AND INTACT. REPORT GIVEN TO TRANSPORTATION PERSONNEL.
[2018-07-20] MEDS ORDERED: BYDUREON SUBQ SCH (16:00)
== END 2018-07-15 19:30 | DRG 871 ==
LOC: MED 09:16 → MTU 12:53
PROVIDERS: ADMIT Preventive Medicine Preventive Medicine/Occupational Environmental Medicine; ATTEND Preventive Medicine Preventive Medicine/Occupational Environmental Medicine
DX: A41.9 Sepsis, unspecified organism (principal); E43 Unspecified severe protein-calorie malnutrition; J96.00 Acute respiratory failure, unspecified whether with hypoxia or hypercapnia; J44.1 Chronic obstructive pulmonary disease with (acute) exacerbation; E87.1 Hypo-osmolality and hyponatremia; N39.0 Urinary tract infection, site not specified; D72.829 Elevated white blood cell count, unspecified; E11.51 Type 2 diabetes mellitus with diabetic peripheral angiopathy without gangrene; B96.4 Proteus (mirabilis) (morganii) as the cause of diseases classified elsewhere; E11.65 Type 2 diabetes mellitus with hyperglycemia; E78.5 Hyperlipidemia, unspecified; E83.52 Hypercalcemia; I11.9 Hypertensive heart disease without heart failure; Z16.24 Resistance to multiple antibiotics; Z22.322 Carrier or suspected carrier of Methicillin resistant Staphylococcus aureus; Z88.5 Allergy status to narcotic agent; Z89.512 Acquired absence of left leg below knee; Z68.23 Body mass index [BMI] 23.0-23.9, adult
CPT/HCPCS: 36415; 36600; 71045; 80048; 80053; 81001; 82550; 82553; 82803; 82948; 83036; 83605; 83735; 83880; 84100; 84484; 85025; 85379; 85651; 86140; 87040; 87081; 87086; 87186; 93005; 94640; 96372; 97116; 97161-GP; 97530; 99285; J0696; J1815; J2001; J2060; J2550; J2930; J7030; J7060; J7620; Q0092

== ENCOUNTER 2020-12-02 00:38 | Inpatient (IN) | payer OTHER, MEDICAID, SELFPAY ==
[~2020-12-02] VITALS: Ht 177.8 cm; Wt 88.5 kg
[~2020-12-02 00:38] MED LIST changes: +ACAR50TA PO; -ALEN70TA1 PO; -ASPI-1718 PO; +ASPI-1822 PO; -AZIT250T11 PO; -BENZ100C6 PO; -CALC-105 PO; +CALC-1141 PO; +CRAN450C PO; -DEXT31GE2 PO; -FER325 PO; +FOS70 PO; +FURO-570 PO; -GABA100C PO; -GLU1I IM; -GLUC-805 FS; -GUAI-791 PO; -HUMSLIDE SUBQ; +IBUP-2213 PO; +IMO2 PO; +INSU100S22 SQ; -LANTUS SUBQ; +METO25TA PO; -MIRA25TE PO; +MIRA50TE PO; +PIOG15TA24 PO; +POTA8TER12 PO; -ROC1PM IV; -SITA50TA3 PO; -TRAM50TA1 PO; -TRAZ-343 PO; +[UNRECOGNIZED DRUG - CODE] PO; +[UNRECOGNIZED DRUG - CODE] SC; -[UNRECOGNIZED DRUG - CODE] SUBQ; +[UNRECOGNIZED DRUG - CODE] TP
--- NOTE | 2020-12-02 00:40 | NUR ---
Dr. Vera examining patient.
[2020-12-02 00:50] VITALS: BP 142/72
--- NOTE | 2020-12-02 01:18 | NUR ---
PT HUMBERTO ALS. TAKEN TO BED 8
[2020-12-02 01:40] LABS: BASOPHILS % (AUTO) 0.4 % (0.0-2.0); EOSINOPHILS # (AUTO) 0.2 K/uL (0-0.4); EOSINOPHILS % (AUTO) 3.4 % (0.0-4.0); HEMATOCRIT 30.4 % (36-52); HEMOGLOBIN 10.2 g/dL (12.0-18.0); LYMPHOCYTES # (AUTO) 0.8 K/uL (2.0-11.5); LYMPHOCYTES % (AUTO) 12.6 % (20.5-51.1); MEAN CORPUSCULAR HEMOGLOBIN 31 pg (27-31); MEAN CORPUSCULAR HGB CONC 34 g/dL (33-37); MEAN CORPUSCULAR VOLUME 93.3 fL (80-94); MONOCYTES # (AUTO) 0.9 K/uL (0.8-1.0); NEUTROPHILS # (AUTO) 4.3 K/uL (1.8-7.7); NEUTROPHILS % (AUTO) 69.6 % (42.2-75.2); PLATELET COUNT (AUTO) 188 K/uL (140-450); RED BLOOD CELL COUNT(AUTO) 3.26 MIL/uL (4.20-6.10); WHITE BLOOD COUNT (AUTO) 6.1 K/uL (4.8-10.8)
[2020-12-02 01:54] LABS: ANION GAP 10.8 (8-16); ASPARTATE AMINOTRANSFERASE 32 U/L (15-37); CARBON DIOXIDE 26.9 mmol/L (21-32); CHLORIDE 101 mmol/L (98-107); CREATININE 1.2 mg/dL (0.6-1.3); GLUCOSE 130 mg/dL (74-106); POTASSIUM 3.7 mmol/L (3.5-5.1); SODIUM SERUM 135 mmol/L (136-145); TOTAL BILIRUBIN 0.3 mg/dL (0.0-1.0); UREA NITROGEN, BLOOD 20 mg/dL (7-18)
[2020-12-02 03:23] LABS: APPEARANCE,URINE CLEAR (CLEAR); BILIRUBIN,URINE NEGATIVE (NEGATIVE); BLOOD, URINE TRACE-I (NEGATIVE); COLOR,URINE YELLOW (YELLOW); LEUKOCYTE ESTERASE ,URINE 2+ (NEGATIVE); NITRITE, URINE POSITIVE (NEGATIVE); UGLUCOSE NEGATIVE (NEGATIVE)
[2020-12-02 03:46] LABS: RBC,URINE 0-5 /HPF (0-5); WBC,URINE 60-80 /HPF (0-5)
[2020-12-02] MEDS ORDERED: AZITHROMYCIN 250 MG TAB PO ONE (03:55)
[2020-12-02] MEDS ORDERED: cefTRIAXone 1,000 MG VIAL ONE (04:05)
[2020-12-02] MEDS ORDERED: INSULIN REGULAR, HUMAN 100 UNIT/ML VIAL SUBQ ONE (04:20)
--- NOTE | 2020-12-02 04:26 | NUR ---
patient admitted under Aurelio as tele hold in ed bed 8
[2020-12-02] MEDS ORDERED: MIRA25TE PO (05:43)
[2020-12-02] MEDS ORDERED: AMLO10TA PO (05:43)
[2020-12-02] MEDS ORDERED: LANTUS SUBQ (05:43)
[2020-12-02] MEDS ORDERED: [UNRECOGNIZED DRUG - CODE] PO (05:43)
[2020-12-02] MEDS ORDERED: METO25TE71 PO (05:43)
[2020-12-02] MEDS ORDERED: FURO-570 PO (05:43)
[2020-12-02] MEDS ORDERED: CRAN250C PO (05:43)
[2020-12-02] MEDS ORDERED: TAMS0.4C96 PO (05:43)
[2020-12-02] MEDS ORDERED: POTA8CAP4 PO (05:43)
[2020-12-02] MEDS ORDERED: ASPI-1379 PO (05:43)
[2020-12-02] MEDS ORDERED: EXEN2AUT SQ (05:43)
[2020-12-02] MEDS ORDERED: SYN.1 PO (05:43)
[2020-12-02] MEDS ORDERED: FAMO-90 PO (05:43)
[2020-12-02] MEDS ORDERED: PIOG15TA84 PO (05:43)
[2020-12-02] MEDS ORDERED: LOSA100T1 PO (05:43)
[2020-12-02] MEDS ORDERED: CALC-1626 PO (05:43)
[2020-12-02] MEDS ORDERED: ACAR50TA PO (05:43)
[2020-12-02] MEDS ORDERED: DOCUSATE SODIUM 100 MG GELCAP PO PRN (07:25)
[2020-12-02] MEDS ORDERED: ONDANSETRON 4 MG/2 ML VIAL IVP PRN (07:25)
[2020-12-02] MEDS ORDERED: LORazepam 2 MG/ML VIAL IVP PRN (07:25)
[2020-12-02] MEDS ORDERED: ACETAMINOPHEN 325 MG TAB PO PRN (07:25)
[2020-12-02] MEDS ORDERED: POTASSIUM CHLORIDE 10 MEQ TABER PO PRN (07:25)
[2020-12-02] MEDS ORDERED: MAG SULF 2000 MG/WATER PREMIX 50 ML IV PRN (07:25)
--- NOTE | 2020-12-02 07:25 | NUR ---
REPORT RECEIVED FROM GEO BECKFORD FOR TRANSFER OF CARE FOR SHIFT
[2020-12-02] MEDS ORDERED: BLOOD GLUCOSE MONITORING 1 DEV DEV FS ONE (07:30)
--- NOTE | 2020-12-02 08:01 | NUR ---
Patient appears to be resting comfortably in bed with eyes closed. Vital Signs within normal limits and charted. Respirations even and unlabored. Bed in lowest position with hob elevated, will continue to monitor
[2020-12-02] MEDS ORDERED: BLOOD GLUCOSE MONITORING 1 DEV DEV FS SCH (08:07)
--- NOTE | 2020-12-02 08:13 | NUR ---
CALLED ER TO GET PATIENT'S REPORT. WAITING PATIENT TO TRANSFER TO UNIT.
--- NOTE | 2020-12-02 08:38 | NUR ---
Patient will be admitted to care of DR. FRAZIER. Admited to TELE. Will go to room 105B. Belongings list completed. Report to GEO TRINH. PATIENT TAKEN TO ROOM 105B AND ACCOMPANIED BY [facility] EMT
--- NOTE | 2020-12-02 08:45 | NUR ---
RECEIVED PATIENT FROM ER. DX ASPIRATION PNEUMONIA. PATIENT IS ON TELE MONITOR. A/A/O X4. RESPIRATORY EVEN AND UNLABORED, ON 2L OXYGEN BY NC. LUNG SOUND DIMINISH ON BILATERAL. ABDOMEN ROUND, SOFT. BOWEL SOUND ACTIVE ALL 4 QUADRANTS. SKIN WARM, DRY, NON DIAPHORETIC. LEFT BKA. IV ON LEFT HAND 20G, INTACT AND PATENT, SALINE LOCK. PATIENT DENIES ANY PAIN OR DISCOMFORT. ABLE TO MAKE NEED KNOWN. ORIENTED TO ROOM AND UNIT. MRSA COLLECT. PLAN OF CARE DISCUSSED, PATIENT VERBALIZED UNDERSTANDING. PRECAUTION IN PLACE. CALL LIGHT WITHIN REACH. WILL CONTINUE TO MONITOR.
[2020-12-02 08:47] VITALS: BP 157/63
[2020-12-02] MEDS: METOPROLOL 25 MG TAB PO SCH (09:40)
--- NOTE | 2020-12-02 09:40 | NUR ---
SCHEDULE MEDICATIONS GIVEN WITH EDUCATION. PATIENT VERBALIZED UNDERSTANDING. PATIENT TOLERATED WELL. NO SIGN OF DISTRESS NOTED. PRECAUTION IN PLACE, CALL LIGHT WITHIN REACH. WILL CONTINUE TO MONITOR.
[2020-12-02] MEDS: FUROSEMIDE 40 MG TAB PO SCH (09:41)
[2020-12-02] MEDS: amLODIPine 5 MG TAB PO SCH (09:41)
[2020-12-02] MEDS: ECOTRIN 81 MG TABEC PO SCH (09:41)
--- NOTE | 2020-12-02 11:00 | NUR ---
ROUND CHECK. PATIENT IS AWAKE, RESTING IN BED, NO SIGN OF DISTRESS NOTED. PRECAUTION IN PLACE. CALL LIGHT WITHIN REACH. WILL CONTINUE TO MONITOR.
[2020-12-02 12:00] VITALS: BP 137/64
[2020-12-02] MEDS: INSULIN LISPRO SLIDING SCALE 100 UNITS/ML VIAL SUBQ PRN ×3 (12:18→21:03)
[2020-12-02] MEDS: PIPERACILLIN/TAZOBACTAM 3.375 GM in DEXTROSE 5% 50 ML IV SCH ×3 (12:25→23:54)
--- NOTE | 2020-12-02 12:25 | NUR ---
SCHEDULE MEDICATION GIVEN WITH EDUCATION. PATIENT VERBALIZED UNDERSTANDING. PATIENT TOLERATED WELL. NO SIGN OF DISTRESS NOTED. PRECAUTION IN PLACE. CALL LIGHT WITHIN REACH. WILL CONTINUE TO MONITOR.
--- NOTE | 2020-12-02 14:00 | NUR ---
ROUND CHECK. PATIENT IS SLEEPING, CHEST RISE AND FALL, AROUSABLE TO VOICE. NO SIGN OF DISTRESS NOTED. PRECAUTION IN PLACE. CALL LIGHT WITHIN REACH. WILL CONTINUE TO MONITOR.
[2020-12-02 16:00] VITALS: BP 131/58
--- NOTE | 2020-12-02 16:00 | NUR ---
ROUND CHECK. PATIENT IS RESTING IN BED, NO SIGN OF DISTRESS NOTED. PRECAUTION IN PLACE. CALL LIGHT WITHIN REACH. WILL CONTINUE TO MONITOR.
--- NOTE | 2020-12-02 19:20 | NUR ---
RECEIVED REPORT FROM ZIGGY RN FOR CONTINUITY OF CARE. PT SITTING UP AAOX4. NO APPARENT S/S OF ACUTE DISTRESS. BREATHING EVEN AND UNLABORED ON 2L NC WITH O2 SAT OF 95%. NO C/O SP, SOB OR PAIN. L HAND 20G INTACT/PATENT. POC AND WHITE COMMUNICATION BOARD UPDATED. BED IN LOW/LOCKED POSITION. CALL LIGHT WITHIN REACH. PT ENCOURAGED TO CALL FOR ANY NEEDS/ASSISTANCE. WILL CONTINUE TO MONITOR.
--- NOTE | 2020-12-02 19:30 | NUR ---
ENDORSED PATIENT TO TUBE PUSHER NURSE FOR CONTINUITY OF CARE. PATIENT IS STABLE.
[2020-12-02 20:00] VITALS: BP 142/79
[2020-12-02] MEDS: TAMSULOSIN 0.4 MG CAP PO SCH (20:58)
[2020-12-02] MEDS ORDERED: MIRABEGRON 50 MG PO SCH (21:00)
[2020-12-03] VITALS: BP 138/59
[2020-12-03 04:00] VITALS: BP 130/56
[2020-12-03] MEDS: PIPERACILLIN/TAZOBACTAM 3.375 GM in DEXTROSE 5% 50 ML IV SCH ×4 (06:55→23:31)
[2020-12-03] MEDS: LEVOTHYROXINE 0.1 MG TAB PO SCH (06:56)
[2020-12-03 07:06] LABS: BASOPHILS % (AUTO) 0.5 % (0.0-2.0); EOSINOPHILS # (AUTO) 0.3 K/uL (0-0.4); EOSINOPHILS % (AUTO) 3.7 % (0.0-4.0); HEMATOCRIT 31.2 % (36-52); HEMOGLOBIN 10.4 g/dL (12.0-18.0); LYMPHOCYTES # (AUTO) 0.6 K/uL (2.0-11.5); LYMPHOCYTES % (AUTO) 9.4 % (20.5-51.1); MEAN CORPUSCULAR HEMOGLOBIN 32 pg (27-31); MEAN CORPUSCULAR HGB CONC 33 g/dL (33-37); MEAN CORPUSCULAR VOLUME 94.8 fL (80-94); MONOCYTES # (AUTO) 0.9 K/uL (0.8-1.0); MONOCYTES % (AUTO) 13.7 % (1.7-9.3); NEUTROPHILS # (AUTO) 4.9 K/uL (1.8-7.7); NEUTROPHILS % (AUTO) 72.7 % (42.2-75.2); PLATELET COUNT (AUTO) 195 K/uL (140-450); RED BLOOD CELL COUNT(AUTO) 3.29 MIL/uL (4.20-6.10); RED CELL DISTRIBUTION WIDTH 14.9 % (11.6-13.7); WHITE BLOOD COUNT (AUTO) 6.7 K/uL (4.8-10.8)
--- NOTE | 2020-12-03 07:12 | NUR ---
REPORT GIVEN TO VIDHI GUARDADO FOR CONTINUITY OF CARE. NO APPARENT S/S OF ACUTE DISTRESS. BREATHING EVEN AND UNLABORED. BED IN LOW/LOCKED POSITION. CALL LIGHT WITHIN REACH. ALL NEEDS MET AT THIS TIME
--- NOTE | 2020-12-03 07:30 | NUR ---
RECEIVED REPORT FROM NIPPLE MACHINE OPERATOR CONTINUITY OF CARE. PT IN BED WITH HOB ELEVATED AOX4. NO S/S ACUTE DISTRESS. BREATHING EVEN AND UNLABORED ON 2L NC. NO C/O PAIN. L HAND 20G INTACT/PATENT. POC DISCUSSED. BED IN LOW/LOCKED POSITION. CALL LIGHT WITHIN REACH. WILL CONTINUE TO MONITOR.
[2020-12-03 08:00] VITALS: BP 142/67
[2020-12-03] MEDS: ECOTRIN 81 MG TABEC PO SCH (08:30)
[2020-12-03] MEDS: FUROSEMIDE 40 MG TAB PO SCH (08:30)
[2020-12-03] MEDS: METOPROLOL 25 MG TAB PO SCH (08:30)
--- NOTE | 2020-12-03 08:30 | NUR ---
flu and covid swab sent to lab
[2020-12-03] MEDS: amLODIPine 5 MG TAB PO SCH (08:31)
--- NOTE | 2020-12-03 08:40 | NUR ---
DUE MEDS GIVEN TOLERATED WELL
[2020-12-03 09:08] LABS: CHLORIDE 103 mmol/L (98-107); POTASSIUM 4.2 mmol/L (3.5-5.1); SODIUM SERUM 138 mmol/L (136-145)
[2020-12-03 09:09] LABS: ANION GAP 13.7 (8-16); CARBON DIOXIDE 25.5 mmol/L (21-32); CREATININE 1.4 mg/dL (0.6-1.3); GLUCOSE 73 mg/dL (74-106); UREA NITROGEN, BLOOD 22 mg/dL (7-18)
--- NOTE | 2020-12-03 09:23 | NUR ---
PATIENT HAS BEEN SCREENED AND CATEGORIZED MODERATE NUTRITION RISK. PATIENT WILL BE SEEN WITHIN 3-5 DAYS OF ADMISSION. 12/04/20 12/06/[address] Addendum: 12/03/20 at [address] FNS REFERRAL "NOT APPLICABLE" WITHOUT ANY OTHER HIGH RISK NUTRITION FACTORS
--- NOTE | 2020-12-03 11:30 | NUR ---
BLOOD SUGAR 172, COVERAGE GIVEN
[2020-12-03] MEDS: INSULIN LISPRO SLIDING SCALE 100 UNITS/ML VIAL SUBQ PRN ×3 (11:57→20:46)
[2020-12-03] MEDS: BLOOD GLUCOSE MONITORING 1 DEV DEV FS SCH ×3 (11:57→20:29)
[2020-12-03 12:00] VITALS: BP 139/70
--- NOTE | 2020-12-03 12:30 | NUR ---
PT EATING LUNCH, NO COMPLAINTS AT THIS TIME
--- NOTE | 2020-12-03 14:50 | NUR ---
PT RESTING IN BED, DRAINED URINAL, 400CC CLEAR YELLOW URINE
[2020-12-03 16:00] VITALS: BP 152/69
--- NOTE | 2020-12-03 18:45 | NUR ---
PT RESTING IN BED, NO C/O PAIN, NO APPARENT DISTRESS
--- NOTE | 2020-12-03 19:20 | NUR ---
RECEIVED REPORT FROM VIDHI GUARDADO FOR CONTINUITY OF CARE. PT SITTING UP AAOX4. NO APPARENT S/S OF ACUTE DISTRESS. BREATHING EVEN AND UNLABORED ON 3L NC WITH O2 SAT OF 98%. NO C/O CP, SOB OR PAIN. L HAND 22G INTACT/PATENT. POC AND WHITE COMMUNICATION BOARD UPDATED. BED IN LOW/LOCKED POSITION. CALL LIGHT WITHIN REACH. PT ENCOURAGED TO CALL FOR ANY NEEDS/ASSISTANCE. WILL CONTINUE TO MONITOR.
[2020-12-03 20:00] VITALS: BP 142/63
[2020-12-03] MEDS: TAMSULOSIN 0.4 MG CAP PO SCH (20:24)
[2020-12-03] MEDS: ZOLPIDEM 10 MG TAB PO PRN (23:22)
[2020-12-04] VITALS: BP 131/58
[2020-12-04 04:00] VITALS: BP 135/70
[2020-12-04] MEDS: PIPERACILLIN/TAZOBACTAM 3.375 GM in DEXTROSE 5% 50 ML IV SCH ×4 (06:32→23:57)
[2020-12-04] MEDS: LEVOTHYROXINE 0.1 MG TAB PO SCH (06:32)
[2020-12-04] MEDS: BLOOD GLUCOSE MONITORING 1 DEV DEV FS SCH ×4 (06:42→20:12)
--- NOTE | 2020-12-04 07:18 | NUR ---
REPORT GIVEN TO DMITRI GUARDADO FOR CONTINUITY OF CARE. PT SITTING UP AAOX4. NO APPARENT S/S OF ACUTE DISTRESS. BREATHING EVEN AND UNLABORED. BED IN LOW/LOCKED POSITION. CALL LIGHT WITHIN REACH. ALL NEEDS MET AT THIS TIME.
[2020-12-04 07:34] LABS: BASOPHILS % (AUTO) 0.4 % (0.0-2.0); EOSINOPHILS # (AUTO) 0.2 K/uL (0-0.4); EOSINOPHILS % (AUTO) 3.9 % (0.0-4.0); HEMATOCRIT 31.6 % (36-52); HEMOGLOBIN 10.7 g/dL (12.0-18.0); LYMPHOCYTES # (AUTO) 0.7 K/uL (2.0-11.5); LYMPHOCYTES % (AUTO) 10.7 % (20.5-51.1); MEAN CORPUSCULAR HEMOGLOBIN 32 pg (27-31); MEAN CORPUSCULAR HGB CONC 34 g/dL (33-37); MEAN CORPUSCULAR VOLUME 93.7 fL (80-94); MONOCYTES % (AUTO) 15.8 % (1.7-9.3); NEUTROPHILS # (AUTO) 4.4 K/uL (1.8-7.7); NEUTROPHILS % (AUTO) 69.2 % (42.2-75.2); PLATELET COUNT (AUTO) 213 K/uL (140-450); RED BLOOD CELL COUNT(AUTO) 3.37 MIL/uL (4.20-6.10); RED CELL DISTRIBUTION WIDTH 14.8 % (11.6-13.7); WHITE BLOOD COUNT (AUTO) 6.3 K/uL (4.8-10.8)
[2020-12-04 08:00] VITALS: BP 141/65
--- NOTE | 2020-12-04 08:20 | NUR ---
Patient awake, able to follow simple commands. Shows no signs of pain. Vitals stable and tolerating fluids. Safety measures in place with seizure precautions maintained, all signs of bed up and covered. Call light within reach, bed lowered and alarm activated. Addendum: 12/04/20 at 0824 by Nilson Gallardo RN RN Patient not on seizure precautions. Disregard that portion.
[2020-12-04 08:23] LABS: ANION GAP 11.5 (8-16); CARBON DIOXIDE 27.7 mmol/L (21-32); CHLORIDE 103 mmol/L (98-107); CREATININE 1.5 mg/dL (0.6-1.3); GLUCOSE 94 mg/dL (74-106); POTASSIUM 4.2 mmol/L (3.5-5.1); SODIUM SERUM 138 mmol/L (136-145); UREA NITROGEN, BLOOD 25 mg/dL (7-18)
[2020-12-04] MEDS: ECOTRIN 81 MG TABEC PO SCH (09:00)
[2020-12-04] MEDS: amLODIPine 5 MG TAB PO SCH (09:00)
[2020-12-04] MEDS: METOPROLOL 25 MG TAB PO SCH (09:00)
[2020-12-04] MEDS: FUROSEMIDE 40 MG TAB PO SCH (09:01)
--- NOTE | 2020-12-04 11:36 | NUR ---
DC PLANNING: CALLED PATIENT'S RESIDENCE ) INTERMEDIATE CARE FACILITY) SPOKE WITH JOAQUIN HENDERSON THE COVID VACCINE AND PT RECEIVED 1ST DOSE ON FEBRUARY AND 2ND DOSE ON MAR AND ALSO RECEIVED A FLU SHOT. DC PLAN TO RETURN BACK TO THE FACILITIES. CM TO FOLLOW
[2020-12-04 12:00] VITALS: BP 140/46
[2020-12-04] MEDS: INSULIN LISPRO SLIDING SCALE 100 UNITS/ML VIAL SUBQ PRN ×4 (12:32→20:36)
[2020-12-04 16:00] VITALS: BP 147/60
--- NOTE | 2020-12-04 19:15 | NUR ---
RECEIVED ENDORSEMENT FROM DMITRI GUARDADO FOR CONTINUITY OF CARE. PATIENT STABLE IN BED SITTING UP AAOX4. NO SIGNS OF ACUTE RESPIRATORY DISTRESS. ON 3L NC OXYGEN SATURATION 96%. IV SITE RIGHT HAND GAUGE 20 AT TKO. PATENT AND INTACT. BREATHING EVEN AND UNLABORED WITH OCCASIONAL PRODUCTIVE COUGHING MINIMAL AMOUNT. DENIES PAIN 0/10. BED IN LOW/LOCKED POSITION. ALL SAFETY MEASURES IN PLACE. CALL LIGHT WITHIN REACH. WILL CONTINUE WITH CURRENT PLAN OF CARE.
--- NOTE | 2020-12-04 20:00 | NUR ---
Patient's Plan of Care was discussed and reviewed with CAR SALES ASSOCIATE: PARTH EARL
[2020-12-04] MEDS: TAMSULOSIN 0.4 MG CAP PO SCH (20:08)
--- NOTE | 2020-12-04 21:15 | NUR ---
ANSWERED CALL LIGHT. PATIENT STABLE IN BED. PATIENT REQUESTED TO EMPTY URINAL. NO SIGNS OF ACUTE RESPIRATORY DISTRESS NOTED AT THIS TIME. PATIENT DENIES PAIN 0/10. ALL SAFETY MEASURES IN PLACE. CALL LIGHT WITHIN REACH. WILL CONTINUE TO MONITOR.
--- NOTE | 2020-12-04 23:20 | NUR ---
CHECKED ON PATIENT. STABLE IN BED RESTING. NO SIGNS OF ACUTE RESPIRATORY DISTRESS NOTED AT THIS TIME. PATIENT DENIES PAIN 0/10. ALL SAFETY MEASURES IN PLACE. CALL LIGHT WITHIN REACH. WILL CONTINUE TO MONITOR.
--- NOTE | 2020-12-05 01:20 | NUR ---
CHECKED ON PATIENT. STABLE IN BED SLEEPING. BREATHING SYMMETRICAL. NO SIGNS OF ACUTE RESPIRATORY DISTRESS NOTED AT THIS TIME. ALL SAFETY MEASURES IN PLACE. CALL LIGHT WITHIN REACH. WILL CONTINUE TO MONITOR.
[2020-12-05 04:00] VITALS: BP 133/56
[2020-12-05] MEDS: PIPERACILLIN/TAZOBACTAM 3.375 GM in DEXTROSE 5% 50 ML IV SCH ×3 (05:15→18:00)
[2020-12-05] MEDS: LEVOTHYROXINE 0.1 MG TAB PO SCH (05:40)
--- NOTE | 2020-12-05 05:40 | NUR ---
CHECKED ON PATIENT. STABLE IN BED. ADMINISTERED SCHEDULED SYNTHROID PER MD ORDER. TOLERATED WELL. ASYMPTOMATIC. NO SIGNS OF ACUTE RESPIRATORY DISTRESS. ALL SAFETY MEASURES IN PLACE. WILL CONTINUE TO MONITOR.
--- NOTE | 2020-12-05 06:30 | NUR ---
PATIENT'S BLOOD SUGAR IS 98. NO INSULIN COVERAGE NEEDED PER MD ORDER.
[2020-12-05] MEDS: BLOOD GLUCOSE MONITORING 1 DEV DEV FS SCH ×2 (06:36→12:00)
[2020-12-05 07:00] LABS: BASOPHILS % (AUTO) 0.4 % (0.0-2.0); EOSINOPHILS # (AUTO) 0.2 K/uL (0-0.4); EOSINOPHILS % (AUTO) 3.4 % (0.0-4.0); HEMATOCRIT 31.4 % (36-52); HEMOGLOBIN 10.5 g/dL (12.0-18.0); LYMPHOCYTES # (AUTO) 0.7 K/uL (2.0-11.5); LYMPHOCYTES % (AUTO) 10.4 % (20.5-51.1); MEAN CORPUSCULAR HEMOGLOBIN 32 pg (27-31); MEAN CORPUSCULAR HGB CONC 34 g/dL (33-37); MEAN CORPUSCULAR VOLUME 94.5 fL (80-94); MONOCYTES # (AUTO) 1.1 K/uL (0.8-1.0); MONOCYTES % (AUTO) 17.5 % (1.7-9.3); NEUTROPHILS # (AUTO) 4.3 K/uL (1.8-7.7); NEUTROPHILS % (AUTO) 68.3 % (42.2-75.2); PLATELET COUNT (AUTO) 222 K/uL (140-450); RED BLOOD CELL COUNT(AUTO) 3.32 MIL/uL (4.20-6.10); WHITE BLOOD COUNT (AUTO) 6.3 K/uL (4.8-10.8)
[2020-12-05 07:03] LABS: ANION GAP 12.7 (8-16); CARBON DIOXIDE 27.3 mmol/L (21-32); CHLORIDE 103 mmol/L (98-107); CREATININE 1.5 mg/dL (0.6-1.3); GLUCOSE 98 mg/dL (74-106); SODIUM SERUM 139 mmol/L (136-145); UREA NITROGEN, BLOOD 27 mg/dL (7-18)
--- NOTE | 2020-12-05 07:06 | NUR ---
ENDORSED PATIENT TO MORNING SHIFT FOR CONTINUITY OF CARE. PATIENT IS STABLE.
--- NOTE | 2020-12-05 07:35 | NUR ---
BEDSIDE REPORT RECEIVED FROM CARBON COATING MACHINE OPERATOR. PATIENT RESTING. ALL SAFETY MEASURE SIN PLACE.
[2020-12-05] MEDS: METOPROLOL 25 MG TAB PO SCH (08:17)
[2020-12-05] MEDS: amLODIPine 5 MG TAB PO SCH (08:18)
[2020-12-05] MEDS: ECOTRIN 81 MG TABEC PO SCH (08:19)
[2020-12-05] MEDS: FUROSEMIDE 40 MG TAB PO SCH (08:19)
--- NOTE | 2020-12-05 08:49 | NUR ---
MEDICATIONS GIVEN PER MD ORDER. PT EDUCATED , PT VERBALIZED UNDERSTANDING PT ABLE TO MAKE NEEDS KNOWN. CALL LIGHT WITHIN REACH ALL SAFETY MEASURES ARE IN PLACE.
[2020-12-05] MEDS ORDERED: BENZONATATE 100 MG CAPLF PO PRN (09:00)
--- NOTE | 2020-12-05 10:05 | NUR ---
PT COMPLAINS OF COUGH , MD AWARE. ORDERS RECEIVED AND CARRIED THROUGH . ALL SAFETY MEASURES ARE IN PLACE.
--- NOTE | 2020-12-05 10:59 | NUR ---
12/05/20 RD INITIAL ASSESSMENT COMPLETED PLEASE REFER TO NUTRITION ASSESSMENT UNDER CARE ACTIVITY FOR ESTIMATED NUTRITIONAL NEEDS. 1.CONTINUE [facility] [place] DIET TOLERATED 2.RECOMMEND GLUCERNA 1X DAILY -THIS WILL PROVIDE 220 KCALS AND [address] TO FOLLOW-UP 3-5 DAYS, MODERATE RISK REVIEWED BY ADELAIDE ALEX[address]ER RD
--- NOTE | 2020-12-05 11:10 | NUR ---
MEDICATIONS GIVEN PER MD ORDER. PT EDUCATED , PT VERBALIZED UNDERSTANDING PAT ABLE TO MAKE NEEDS KNOWN. CALL LIGHT WITHIN REACH ALL SAFETY MEASURES ARE IN PLACE.
--- NOTE | 2020-12-05 11:30 | NUR ---
BG 348, PRN MEDICATION GIVEN PER MD ORDER.. PT EDUCATED , PT VERBALIZED UNDERSTANDING PAT ABLE TO MAKE NEEDS KNOWN. CALL LIGHT WITHIN REACH ALL SAFETY MEASURES ARE IN PLACE.
[2020-12-05 12:00] VITALS: BP 135/57
[2020-12-05] MEDS: INSULIN LISPRO SLIDING SCALE 100 UNITS/ML VIAL SUBQ PRN (12:00)
--- NOTE | 2020-12-05 12:01 | NUR ---
PT STATES HE TAKES LANTUS AT HOME , VERIFIED WITH CAN LINE OPERATOR DEENA , 14 UNITS. AWARE .
--- NOTE | 2020-12-05 19:15 | NUR ---
RECD. PATIENT RESTING IN BED, AWAKE, A/OX4. RESPIRATION EVEN AND UNLABORED. 02 SATURATION AT 96% ON ROOM AIR. WITH OCCASIONAL COUGHING, MINIMAL AMOUNT OF WHITE PHLEGM COMING OUT. IV OF NS AT TKO INFUSING RIGHT HAND G20. WITH RIGHT BKA, PROSTHETIC LEG NEAR BEDSIDE. SAFETY MEASURES ENFORCED. BED IN THE LOWEST POSITION, SIDE RAILS UP, BED ON ALARM. DENIES PAIN 0/10.
[2020-12-05 20:00] VITALS: BP 142/71
[2020-12-05] MEDS: TAMSULOSIN 0.4 MG CAP PO SCH (21:00)
--- NOTE | 2020-12-05 21:00 | NUR ---
SCHEDULED MEDICATIONS ADMINISTERED. SNACK FOR THE NIGHT GIVEN. ATE 100%.
[2020-12-05] MEDS: ZOLPIDEM 10 MG TAB PO PRN (23:29)
--- NOTE | 2020-12-05 23:29 | NUR ---
UNABLE TO SLEEP, MEDICATED WITH AMBIEN PER MD ORDER. 02 SAT - 94% ON ROOM AIR. ADVISED TO ALTERNATELY TURN TO RIGHT AND LEFT SIDE AND NOT ALWAYS LYING ON HIS BACK TO PREVENT SORES AND ITS GOOD FOR HIS LUNGS. VERBALIZED UNDERSTANDING.
--- NOTE | 2020-12-06 00:30 | NUR ---
SLEEPING COMFORTABLY IN BED, RESPIRATION EVEN AND UNLABORED.
--- NOTE | 2020-12-06 02:30 | NUR ---
CHECKED PATIENT, COMFORTABLY ASLEEP ON HIS RIGHT SIDE. RESPIRATION EVEN AND UNLABORED.
[2020-12-06 04:00] VITALS: BP 138/69
--- NOTE | 2020-12-06 04:30 | NUR ---
VOIDED USING THE URINAL 350 ML YELLOW CLEAR URINE. 02 SAT - 95% ON 3 LITERS 02 VIA N/C.
[2020-12-06] MEDS: LEVOTHYROXINE 0.1 MG TAB PO SCH (05:58)
[2020-12-06] MEDS: PIPERACILLIN/TAZOBACTAM 3.375 GM in DEXTROSE 5% 50 ML IV SCH ×4 (06:00→12:37)
[2020-12-06] MEDS: BLOOD GLUCOSE MONITORING 1 DEV DEV FS SCH ×2 (06:06→12:22)
[2020-12-06] MEDS: INSULIN LISPRO SLIDING SCALE 100 UNITS/ML VIAL SUBQ PRN ×2 (06:16→12:25)
[2020-12-06 07:12] LABS: BASOPHILS % (AUTO) 0.4 % (0.0-2.0); EOSINOPHILS # (AUTO) 0.2 K/uL (0-0.4); EOSINOPHILS % (AUTO) 2.6 % (0.0-4.0); HEMATOCRIT 31.2 % (36-52); HEMOGLOBIN 10.4 g/dL (12.0-18.0); LYMPHOCYTES # (AUTO) 0.5 K/uL (2.0-11.5); LYMPHOCYTES % (AUTO) 6.3 % (20.5-51.1); MEAN CORPUSCULAR HEMOGLOBIN 32 pg (27-31); MEAN CORPUSCULAR HGB CONC 33 g/dL (33-37); MEAN CORPUSCULAR VOLUME 94.5 fL (80-94); MONOCYTES # (AUTO) 1.1 K/uL (0.8-1.0); MONOCYTES % (AUTO) 12.9 % (1.7-9.3); NEUTROPHILS # (AUTO) 6.4 K/uL (1.8-7.7); NEUTROPHILS % (AUTO) 77.8 % (42.2-75.2); PLATELET COUNT (AUTO) 216 K/uL (140-450); RED CELL DISTRIBUTION WIDTH 14.9 % (11.6-13.7); WHITE BLOOD COUNT (AUTO) 8.3 K/uL (4.8-10.8)
[2020-12-06 07:23] LABS: ANION GAP 16.1 (8-16); CARBON DIOXIDE 23.9 mmol/L (21-32); CHLORIDE 99 mmol/L (98-107); CREATININE 1.8 mg/dL (0.6-1.3); GLUCOSE 380 mg/dL (74-106); SODIUM SERUM 135 mmol/L (136-145); UREA NITROGEN, BLOOD 30 mg/dL (7-18)
[2020-12-06 08:00] VITALS: BP 141/58
[2020-12-06] MEDS: amLODIPine 5 MG TAB PO SCH (10:24)
[2020-12-06] MEDS: METOPROLOL 25 MG TAB PO SCH (10:25)
[2020-12-06] MEDS: ECOTRIN 81 MG TABEC PO SCH (10:25)
[2020-12-06] MEDS: FUROSEMIDE 40 MG TAB PO SCH (10:25)
--- NOTE | 2020-12-06 14:00 | NUR ---
0715 AM: PATIENT IS RESTING IN BED QUIETLY. NO ADDITIONAL DISTRESS NOTED. CALL LIGHT WITHIN REACH. BED IN LOW AND LOCK POSITION. BED ALARM ON. K BKA RISK FOR FALL. WILL CONT TO MONITOR. 0800AM: PATIENT IS SITTING UP IN THE CHAIR. PT WAS AMBULATING THE PATIENT. PER PT, PATIENT JUST NEED WITH MINIMAL ASSIST GETTING UP. NO ADDITIONAL DISTRESS NOTED. EXPLAINED PLAN OF CARE AND PATIENT VERBALIZED UNDERSTANDING. WILL CONT TO MONITOR. 1000AM: PATIENT IS SITTING UP IN THE CHAIR. OFFER ASSISTANCE TO GO BACK TO BED. PER PATIENT HE WANTS TO BE SITTING UP BECAUSE THE BED IS NOT COMFORTABLE. WILL CONT TO MONITOR. 1130AM: RECEIVED A CALL FROM [facility] WHERE THE PATIENT LIVES AND STATED THAT DEENA (CAREGIVER) WILL BE PICKING UP THE PATIENT AT 1230PM. PATIENT REQUESTED FOR PULL UP AND SHIRT. PER [facility] AND C[facility] STAFF, DEENA WILL BRING THEM. 1200PM: PATIENT UP IN THE CHAIR WATCHING TV. PATIENT WANTS TO BE SITTING UP DURING LUNCH. WILL CONT TO MONITOR. 1230PM: PATIENT IS UP IN THE CHAIR EATING LUNCH. NO ADDITIONAL DISTRESS NOTED. 1245PM: PRINTED DC PAPER AND PATIENT STATED THAT HE WILL WAIT FOR DEENA TO WITNESS HIM SIGNED THE PAPER. 1300: WAITING FOR DEENA TO ARRIVE. 1345: DC INSTRUCTION GIVEN AND EXPLAINED TO BOTH DEENA AND PATIENT. PER DEENA, SHE USUALLY SIGNED FOR THE PATIENT. BOTH VERBALIZED UNDERSTANDING. IV REMOVED FROM THE RIGHT HAND. IV CATH INTACT AND PATENT. NO BLEEDING NOTED. COVER SITE WITH GAUZE AND SECURE WITH TAPE. 1400: PATIENT LEFT THE FACILITY WHEELED OUT BY PERSONAL W/C ACCOMPANIED BY DEENA AND PRIMARY NURSE. ALL PERSONAL BELONGINGS GIVEN TO PATIENT AND DENIES MISSING ITEMS. NO ADDITIONAL DISTRESS NOTED.
== END 2020-12-06 14:10 | disposition home or self-care (01) | DRG 193 ==
LOC: MED 00:38 → MTU 04:26 → MED 04:26
PROVIDERS: ADMIT General Practice; ATTEND General Practice
DX: J18.9 Pneumonia, unspecified organism (principal); J96.01 Acute respiratory failure with hypoxia; I50.43 Acute on chronic combined systolic (congestive) and diastolic (congestive) heart failure; N39.0 Urinary tract infection, site not specified; E44.1 Mild protein-calorie malnutrition; I11.0 Hypertensive heart disease with heart failure; I10 Essential (primary) hypertension; E03.9 Hypothyroidism, unspecified; K27.9 Peptic ulcer, site unspecified, unspecified as acute or chronic, without hemorrhage or perforation; K21.9 Gastro-esophageal reflux disease without esophagitis; M81.0 Age-related osteoporosis without current pathological fracture; Z66 Do not resuscitate; I25.10 Atherosclerotic heart disease of native coronary artery without angina pectoris; D63.8 Anemia in other chronic diseases classified elsewhere; E11.649 Type 2 diabetes mellitus with hypoglycemia without coma; D64.9 Anemia, unspecified; Z20.822 Contact with and (suspected) exposure to COVID-19; Z88.5 Allergy status to narcotic agent; Z79.899 Other long term (current) drug therapy; Z68.28 Body mass index [BMI] 28.0-28.9, adult
CPT/HCPCS: 36415; 71045; 80048; 80053; 81001; 82948; 83036; 83735; 83880; 84443; 84484; 85025; 87081; 87086; 87804; 93005; 96374; 97110; 97112; 97116; 97163-GP; 97530; 99285; J0696; J1644; J2405; J2543; J7060; Q0092; U0003

== ENCOUNTER 2021-10-21 11:18 | Emergency (ER) | payer OTHER, MEDICAID ==
[~2021-10-21] VITALS: Ht 177.8 cm; Wt 82.1 kg
[~2021-10-21 11:18] MED LIST changes: +ASPI-1379 PO; -ASPI-1822 PO; -CALC-1141 PO; +CALC-1626 PO; +CRAN250C PO; -CRAN450C PO; +EXEN2AUT SQ; +FAMO-90 PO; +FLUV100T31 PO; +LANTUS SUBQ; -LEVO0.2T5 PO; -METO25TA PO; +METO25TE71 PO; -PIOG15TA24 PO; +PIOG15TA84 PO; +POTA8CAP4 PO; -POTA8TER12 PO; +SYN.1 PO; -[UNRECOGNIZED DRUG - CODE] PO
--- NOTE | 2021-10-21 11:20 | NUR ---
BIBA BLS TO ER BED 10
[2021-10-21 11:23] VITALS: BP 120/62
--- NOTE | 2021-10-21 11:23 | NUR ---
everton swabbed at this time
--- NOTE | 2021-10-21 11:34 | NUR ---
81 y/o male dimple from [facility], staff notified us that they are "low staffed and due to holiday, do not have nurses to swab for covid". pt states he has c/o dry cough, denies fever, chills, sob, cp, n/v/d. pmh: hld, dm2, depressive, pneumonia, bronchitis, mrsa, gerd, uti allergy: codeine med
[2021-10-21] MEDS ORDERED: PRED20TA5 PO (12:03)
--- NOTE | 2021-10-21 12:08 | NUR ---
suzan contacted for report, contact states they will come and pick him up with 20 minute eta.
[2021-10-21 12:46] VITALS: BP 120/62
--- NOTE | 2021-10-21 12:47 | NUR ---
Patient discharged with v/s stable. Written and verbal after care instructions given and explained. Patient alert, oriented and verbalized understanding of instructions. Wheel Chair Assisted with caregiver suzan to car. All questions addressed prior to discharge. ID band removed. Patient advised to follow up with PMD. Rx of prednisone (sent) given. Patient educated on indication of medication including possible reaction and side effects. Opportunity to ask questions provided and answered. copy of covid test given, md spoke with staff suzan and dominique in regards to pt condition
== END 2021-10-21 12:46 | disposition home or self-care (01) ==
LOC: MED 11:18
DX: R05.9 Cough, unspecified (principal); Z20.822 Contact with and (suspected) exposure to COVID-19; R06.02 Shortness of breath; J44.9 Chronic obstructive pulmonary disease, unspecified; E11.9 Type 2 diabetes mellitus without complications; I10 Essential (primary) hypertension; Z79.899 Other long term (current) drug therapy; Z90.49 Acquired absence of other specified parts of digestive tract; Z89.512 Acquired absence of left leg below knee; Z79.4 Long term (current) use of insulin; Z88.5 Allergy status to narcotic agent
CPT/HCPCS: 99283

== ENCOUNTER 2022-01-31 18:20 | Inpatient (IN) | payer OTHER, MEDICAID ==
[~2022-01-31] VITALS: Ht 177.8 cm; Wt 63.5 kg
[~2022-01-31 18:20] MED LIST changes: +PRED20TA5 PO
--- NOTE | 2022-01-31 18:20 | NUR ---
BIBA BLS TO ER BED 11
[2022-01-31 18:25] VITALS: BP 119/53
[2022-01-31] MEDS ORDERED: ONDANSETRON 4 MG/2 ML VIAL IVP ONE (18:25)
[2022-01-31] MEDS ORDERED: MORPHINE SULFATE 4 MG/ML SYR IVP ONE (18:25)
[2022-01-31] MEDS ORDERED: NACL 0.9% 1,000 ML IV ONE (18:25)
[2022-01-31] MEDS ORDERED: GLUCAGON 1 MG VIAL IVP ONE (18:30)
[2022-01-31] MEDS ORDERED: LORazepam 2 MG/ML VIAL IVP ONE (18:50)
[2022-01-31 18:53] LABS: BASOPHILS % (AUTO) 0.9 % (0.0-2.0); EOSINOPHILS # (AUTO) 0.1 K/uL (0-0.4); EOSINOPHILS % (AUTO) 2.6 % (0.0-4.0); HEMATOCRIT 30.7 % (36-52); HEMOGLOBIN 10.3 g/dL (12.0-18.0); LYMPHOCYTES # (AUTO) 0.7 K/uL (2.0-11.5); LYMPHOCYTES % (AUTO) 12.5 % (20.5-51.1); MEAN CORPUSCULAR HEMOGLOBIN 30 pg (27-31); MEAN CORPUSCULAR HGB CONC 33 g/dL (33-37); MEAN CORPUSCULAR VOLUME 90.6 fL (80-94); MONOCYTES % (AUTO) 18.8 % (1.7-9.3); NEUTROPHILS # (AUTO) 3.6 K/uL (1.8-7.7); NEUTROPHILS % (AUTO) 65.2 % (42.2-75.2); PLATELET COUNT (AUTO) 227 K/uL (140-450); RED BLOOD CELL COUNT(AUTO) 3.39 MIL/uL (4.20-6.10); RED CELL DISTRIBUTION WIDTH 15.2 % (11.6-13.7); WHITE BLOOD COUNT (AUTO) 5.5 K/uL (4.8-10.8)
--- NOTE | 2022-01-31 19:08 | NUR ---
81M HUMBERTO from [facility] with c/o new onset dysphagia and chronic cough. Pt reports an aching like, 10/10 pain to chest only upon coughing, pt denies pain otherwise. Pt reports unable to eat 1 hour prior to arrival, pt states attempted to eat and unable to swallow food. Pt changed into gown and placed on bedside monitor, suction attachted, bed set to lowest position, side rails x2. Dr. Pradhan at bedside upon arrival.
[2022-01-31 19:09] LABS: ANION GAP 11.9 (8-16); ASPARTATE AMINOTRANSFERASE 37 U/L (15-37); CARBON DIOXIDE 28.5 mmol/L (21-32); CHLORIDE 97 mmol/L (98-107); CREATININE 1.3 mg/dL (0.6-1.3); GLUCOSE 182 mg/dL (74-106); POTASSIUM 4.4 mmol/L (3.5-5.1); SODIUM SERUM 133 mmol/L (136-145); TOTAL BILIRUBIN 0.4 mg/dL (0.0-1.0); UREA NITROGEN, BLOOD 24 mg/dL (7-18)
--- NOTE | 2022-01-31 19:17 | NUR ---
Pt report given to GEO Rodríguez, and GEO Magana. Transfer of care at this time.
--- NOTE | 2022-01-31 19:30 | NUR ---
RESUMED CARE FOR PATIENT . PATIENT SITTING IN BED ON 2L/MIN NC. O2 SAT 94%. CHANGED AND REPOSITIONED PATIENT, PROVIDED NEW LINEN. TOLERATED WELL. PATIENT BED LOW AND LOCKED. KY SIDE RAILS FOR SAFETY. CALL LIGHT IN REACH. ALL NEEDS MET.
--- NOTE | 2022-01-31 19:34 | NUR ---
Pt taken to CT
--- NOTE | 2022-01-31 19:51 | NUR ---
PT RETURN FROM CT
--- NOTE | 2022-01-31 22:40 | NUR ---
PATIENT RQ TO BE SITTING UP.
--- NOTE | 2022-02-01 00:12 | NUR ---
CHANGED AND REPOSITIONED PATIENT, PROVIDED NEW LINEN. TOLERATED WELL. PATIENT BED LOW AND LOCKED. KY SIDE RAILS FOR SAFETY. CALL LIGHT IN REACH. ALL NEEDS MET.
[2022-02-01] MEDS ORDERED: DEXT 5% / NACL 0.45% 1,000 ML IV SCH (02:25)
[2022-02-01] MEDS ORDERED: EXEN2AUT SQ (02:57)
[2022-02-01] MEDS ORDERED: BENZ200C4 PO (02:57)
--- NOTE | 2022-02-01 02:58 | NUR ---
Med rec and belongings list completed
--- NOTE | 2022-02-01 03:43 | NUR ---
PATIENT CHANGED AND REPOSITONED. PROVIDED NEW LINEN AND BRIEF. CONTINUES TO BE ON SENIOR ARCHITECT. BED LOW AND LOCKED. KY SIDE RAILS FOR SAFETY. CALL LIGHT IN REACH. ALL NEEDS MET.
--- NOTE | 2022-02-01 05:30 | NUR ---
PATIENT CHANGED AND REPOSITONED. URINATED IN URINAL. CONTINUES TO BE ON BUSINESS TRAINER. BED LOW AND LOCKED. KY SIDE RAILS FOR SAFETY. CALL LIGHT IN REACH. ALL NEEDS MET.
--- NOTE | 2022-02-01 06:43 | NUR ---
PATIENT RQ TO BE PULLED UP. BED LOW AND LOCKED. KY SIDE RAILS UP FOR SAFETY. ALL NEEDS MET.
--- NOTE | 2022-02-01 07:20 | NUR ---
Pt report given to Mayela GUARDADO. Transfer of care at this time.
--- NOTE | 2022-02-01 07:20 | NUR ---
RECEIVED REPORT FROM JESSICA RN AND AURE RN, TRANSFER OF CARE AT THIS TIME, RECEIVED PT IN BED ON 2LPM, SATTING AT 94% NC, RESPIRATIONS EVEN AND UNLABORED. CLARIFIED WITH FACILITY PT HISTORY, FITO STAFF FROM FACILITY STATED THAT PT HAS COPD, CHF, DM, MDD, HTN, LBKA.
[2022-02-01] MEDS ORDERED: LORazepam 2 MG/ML VIAL IVP PRN (07:50)
[2022-02-01] MEDS ORDERED: DEXTROSE 50% 50 ML SYR IVP PRN (07:50)
--- NOTE | 2022-02-01 07:57 | NUR ---
SPOKE TO DR NIRANJAN AMAYA REGARDING PT DX CHF AND RUNNING D5NS45% AT 100CC/HR, RECEIVED TORB ORDER TO REDUCE RATE TO 75CC/HR
[2022-02-01] MEDS: DEXT 5% / NACL 0.45% 1,000 ML IV SCH ×2 (08:03→20:12)
[2022-02-01 08:42] LABS: ANION GAP 11.6 (8-16); BASOPHILS % (AUTO) 0.7 % (0.0-2.0); CARBON DIOXIDE 28.5 mmol/L (21-32); CHLORIDE 101 mmol/L (98-107); CREATININE 1.2 mg/dL (0.6-1.3); EOSINOPHILS # (AUTO) 0.2 K/uL (0-0.4); EOSINOPHILS % (AUTO) 3.7 % (0.0-4.0); GLUCOSE 105 mg/dL (74-106); HEMATOCRIT 28.5 % (36-52); HEMOGLOBIN 9.5 g/dL (12.0-18.0); LYMPHOCYTES # (AUTO) 0.5 K/uL (2.0-11.5); LYMPHOCYTES % (AUTO) 10.4 % (20.5-51.1); MEAN CORPUSCULAR HEMOGLOBIN 30 pg (27-31); MEAN CORPUSCULAR HGB CONC 33 g/dL (33-37); MEAN CORPUSCULAR VOLUME 90.7 fL (80-94); MONOCYTES # (AUTO) 0.8 K/uL (0.8-1.0); MONOCYTES % (AUTO) 16.5 % (1.7-9.3); NEUTROPHILS # (AUTO) 3.4 K/uL (1.8-7.7); PLATELET COUNT (AUTO) 203 K/uL (140-450); POTASSIUM 4.1 mmol/L (3.5-5.1); RED BLOOD CELL COUNT(AUTO) 3.14 MIL/uL (4.20-6.10); RED CELL DISTRIBUTION WIDTH 15.5 % (11.6-13.7); SODIUM SERUM 137 mmol/L (136-145); UREA NITROGEN, BLOOD 20 mg/dL (7-18)
[2022-02-01 08:49] LABS: NEUTROPHILS % (AUTO) 68.7 % (42.2-75.2)
[2022-02-01] MEDS: FUROSEMIDE 40 MG/4 ML VIAL IVP SCH (09:07)
[2022-02-01] MEDS: FAMOTIDINE 20 MG/2 ML VIAL IV SCH ×2 (09:07→20:12)
--- NOTE | 2022-02-01 09:31 | NUR ---
SPOKE TO DEENA, GAVE UPDATE REGARDING PT STATUS
--- NOTE | 2022-02-01 09:45 | NUR ---
Patient will be admitted to care of JOSE LUIS IRVIN. Admited to MED SURG. Will go to room 105B. Belongings list completed. Report to CLOTILDE GUARDADO.
[2022-02-01 09:50] VITALS: BP 143/58
--- NOTE | 2022-02-01 09:50 | NUR ---
PT WHEELED TO [facility] UNIT VIA [employer]. RECEIVED REPORT FROM SUPERINTENDENT REFUSE DISPOSAL BASHIR. PT A/A/O X4. ABLE TO COMMUNICATE NEEDS. WITH HISTORY OF LEFT BKA. RESPIRATIONS EVEN AND UNLABORED ON 2L NC. NO DISTRESS NOTED. NO COMPLAINTS OF PAIN. V/S TAKEN, STABLE. MRSA TAKEN AND SENT TO LAB. PT ON NPO. PT AND PSYCHOLOGICAL OPERATIONS MADE AWARE. NPO SIGN PLACED AT THE PT ROOM DOOR. SKIN INTACT, WARM AND DRY TO TOUCH. IV SITE ON LEFT HAND 20G, INFUSING IVF. PLACED URINAL AT BEDSIDE. PT ORIENTED TO ROOM, UNIT AND ROUTINE. CALL LIGHT WITHIN REACH. SAFETY PRECAUTIONS IN PLACE.
--- NOTE | 2022-02-01 09:55 | NUR ---
Patient's Plan of Care was discussed and reviewed with FAMILY DINNER SERVICE SPECIALIST: CLOTILDE IRELAND
--- NOTE | 2022-02-01 12:09 | NUR ---
PATIENT HAS BEEN SCREENED AND CATEGORIZED HIGH NUTRITION RISK. PATIENT WILL BE SEEN WITHIN 1-2 DAYS OF ADMISSION. 02/03/2212/19/[address]
[2022-02-01] MEDS: BLOOD GLUCOSE MONITORING 1 DEV DEV FS SCH ×3 (12:10→23:26)
--- NOTE | 2022-02-01 12:10 | NUR ---
BLOOD SUGAR CHECK DONE. NO INSULIN COVERAGE NEEDED.
--- NOTE | 2022-02-01 15:06 | NUR ---
PT SLEEPING, BREATHING EVEN AND UNLABORED. NO DISTRESS NOTED. SAFETY PRECAUTIONS IN PLACE.
[2022-02-01 16:00] VITALS: BP 148/58
[2022-02-01] MEDS: INSULIN LISPRO SLIDING SCALE 100 UNITS/ML VIAL SUBQ PRN (17:59)
--- NOTE | 2022-02-01 18:10 | NUR ---
SLIDING SCALE INSULIN GIVEN FOR BS 190.
--- NOTE | 2022-02-01 19:26 | NUR ---
BEDSIDE REPORT GIVEN TO RN SINA FOR CONTINUITY OF CARE. ALL NEEDS MET THROUGHOUT SHIFT. PT IS STABLE.
[2022-02-01 20:41] VITALS: BP 152/60
--- NOTE | 2022-02-02 05:20 | NUR ---
rn notes patient remains on room air, no sob noted. VSS all shift. last bs 146, no coverage needed. Scheduled EGD today at 0730, patient has been NPO. Consent signed.
[2022-02-02] MEDS: BLOOD GLUCOSE MONITORING 1 DEV DEV FS SCH ×3 (05:47→18:29)
[2022-02-02 07:15] LABS: BASOPHILS % (AUTO) 0.6 % (0.0-2.0); EOSINOPHILS # (AUTO) 0.2 K/uL (0-0.4); EOSINOPHILS % (AUTO) 3.4 % (0.0-4.0); HEMATOCRIT 31.9 % (36-52); HEMOGLOBIN 10.5 g/dL (12.0-18.0); LYMPHOCYTES # (AUTO) 0.7 K/uL (2.0-11.5); MEAN CORPUSCULAR HEMOGLOBIN 30 pg (27-31); MEAN CORPUSCULAR HGB CONC 33 g/dL (33-37); MEAN CORPUSCULAR VOLUME 91.9 fL (80-94); NEUTROPHILS % (AUTO) 67.4 % (42.2-75.2); PLATELET COUNT (AUTO) 228 K/uL (140-450); RED BLOOD CELL COUNT(AUTO) 3.47 MIL/uL (4.20-6.10); RED CELL DISTRIBUTION WIDTH 15.3 % (11.6-13.7); WHITE BLOOD COUNT (AUTO) 5.9 K/uL (4.8-10.8)
--- NOTE | 2022-02-02 07:30 | NUR ---
Report received from GEO [place] from [facility]. Care taken over. Pt left at 07:25am to have EGD done.
[2022-02-02 07:34] LABS: ANION GAP 13.7 (8-16); CARBON DIOXIDE 29.4 mmol/L (21-32); CHLORIDE 99 mmol/L (98-107); CREATININE 1.1 mg/dL (0.6-1.3); GLUCOSE 157 mg/dL (74-106); POTASSIUM 4.1 mmol/L (3.5-5.1); SODIUM SERUM 138 mmol/L (136-145); UREA NITROGEN, BLOOD 13 mg/dL (7-18)
[2022-02-02] MEDS ORDERED: fentaNYL citrate 0.05 MG/ML VIAL ONE (07:37)
[2022-02-02] MEDS ORDERED: MIDAZOLAM 2 MG/2 ML VIAL ONE (07:37)
[2022-02-02] MEDS ORDERED: MIDAZOLAM 2 MG/2 ML VIAL IVP ONE (07:55)
[2022-02-02] MEDS ORDERED: fentaNYL citrate 0.05 MG/ML VIAL IVP ONE (07:55)
[2022-02-02 08:00] VITALS: BP 158/59
[2022-02-02 08:10] LABS: LYMPHOCYTES % (AUTO) 11.6 % (20.5-51.1)
[2022-02-02] MEDS: FUROSEMIDE 40 MG/4 ML VIAL IVP SCH (08:42)
[2022-02-02] MEDS: DEXT 5% / NACL 0.45% 1,000 ML IV SCH (10:40)
[2022-02-02 12:00] VITALS: BP_SYST 158; BP_SYST 174; BP_DIAS 104; BP_DIAS 59
[2022-02-02] MEDS: INSULIN LISPRO SLIDING SCALE 100 UNITS/ML VIAL SUBQ PRN ×2 (12:50→18:35)
[2022-02-02 17:28] VITALS: BP 157/68
--- NOTE | 2022-02-02 19:10 | NUR ---
RECEIVED REPORT FROM DAY SHIFT NURSE EVELYN FOR CONTINUITY OF CARE. PT AWAKE, SITTING IN BED. RESPIRATIONS EVEN AND UNLABORED ON RA. NO DISTRESS NOTED. NO COMPLAINTS OF PAIN. SKIN INTACT, WARM AND DRY TO TOUCH. IV SITE ON LEFT HAND INFUSING D5 1/2NS AT 75 ML/HR. CALL LIGHT WITHIN REACH. SAFETY PRECAUTIONS IN PLACE.
--- NOTE | 2022-02-02 19:20 | NUR ---
DR VERGARA ORDERED TO STOP IVF. IVF DISCONTINUED.
[2022-02-02 20:00] VITALS: BP 157/106
--- NOTE | 2022-02-02 20:00 | NUR ---
Patient's Plan of Care was discussed and reviewed with WILLIAN: CLOTILDE
[2022-02-02] MEDS: amLODIPine 5 MG TAB PO SCH (20:54)
--- NOTE | 2022-02-02 20:56 | NUR ---
ADMINISTERED DUE MED. PT ABLE TO SWALLOW PILLS AND DRINK WATER WITHOUT ANY DIFFICULTY. PT TOLERATED WELL.
[2022-02-03] MEDS: BLOOD GLUCOSE MONITORING 1 DEV DEV FS SCH ×5 (00:22→23:28)
[2022-02-03] MEDS: INSULIN LISPRO SLIDING SCALE 100 UNITS/ML VIAL SUBQ PRN ×3 (00:25→17:59)
--- NOTE | 2022-02-03 00:26 | NUR ---
BLOOD SUGAR CHECK DONE. SLIDING SCALE INSULIN ADMINISTERED FOR BS 250.
[2022-02-03] MEDS: Z-GUARD PASTE TP SCH ×2 (01:16→13:00)
--- NOTE | 2022-02-03 03:03 | NUR ---
REPOSITIONED PT IN BED. MADE PT COMFORTABLE IN BED. PT TOLERATED WELL. NO ACUTE DISTRESS NOTED.
[2022-02-03 04:00] VITALS: BP 140/62
[2022-02-03] MEDS: LANSOPRAZOLE 30 MG CAPDR PO SCH (05:44)
--- NOTE | 2022-02-03 07:10 | NUR ---
REPORT RECEIVED FROM NIGHTSHIFT RN, CARE TAKEN OVER FOR DAYSHIFT.
--- NOTE | 2022-02-03 07:10 | NUR ---
GAVE BEDSIDE REPORT TO DAY SHIFT RN EVELYN FOR CONTINUITY OF CARE. ALL NEEDS MET THROUGHOUT SHIFT. PT IS STABLE.
[2022-02-03 08:00] VITALS: BP 110/77
[2022-02-03] MEDS: FUROSEMIDE 40 MG/4 ML VIAL IVP SCH (09:03)
[2022-02-03] MEDS: MUPIROCIN CA NASAL 2% 1GM TUBE NS SCH (09:04)
[2022-02-03] MEDS: CHLORHEXADINE GLUC 2% CLOTH TP SCH (09:17)
[2022-02-03] MEDS ORDERED: guaiFENesin DM 200/20 MG-10 ML 10 ML UDC PO PRN (10:15)
[2022-02-03 16:00] VITALS: BP 144/62
--- NOTE | 2022-02-03 16:35 | NUR ---
02/03/22 RD INITIAL ASSESSMENT COMPLETED PLEASE REFER TO NUTRITION ASSESSMENT UNDER CARE ACTIVITY FOR ESTIMATED NUTRITIONAL NEEDS. 1. RECOMMEND CCHO 60 GM DIET 2. RECOMMEND GLUCERNA 1 X DAY D/T POOR PO INTAKE OF 75%. 3. MONITOR GI SYMPTOMS. 4. RD TO FOLLOW-UP 7 DAYS, LOW RISK REVIEWED BY CARMEN BECERRA RD
[2022-02-03] MEDS ORDERED: ACETAMINOPHEN 650 MG/20.3 ML UDC PO PRN (17:00)
[2022-02-03] MEDS ORDERED: ACETAMINOPHEN 325 MG TAB PO PRN (17:05)
--- NOTE | 2022-02-03 19:09 | NUR ---
RECEIVED REPORT FROM DAY SHIFT NURSE EVELYN FOR CONTINUITY OF CARE. PT AWAKE SITTING IN BED. ON 2L NC. NO C/O OF PAIN. NO DISTRESS NOTED. WITH URINAL AT BEDSIDE. CALL LIGHT WITHIN REACH. SAFETY PRECAUTIONS IN PLACE.
[2022-02-03 20:00] VITALS: BP 133/59
--- NOTE | 2022-02-03 20:00 | NUR ---
PATIENTS PLAN OF CARE REVIEWED AND DISCUSSED WITH WILLIAN IRELAND.
[2022-02-03] MEDS: amLODIPine 5 MG TAB PO SCH (20:23)
[2022-02-03] MEDS: traZODone 50 MG TAB PO SCH (20:23)
--- NOTE | 2022-02-03 20:27 | NUR ---
ADMINISTERED DUE MEDS. PT TOLERATED WELL.
--- NOTE | 2022-02-03 23:28 | NUR ---
NO INSULIN COVERAGE GIVEN FOR BS 140.
[2022-02-04] MEDS: Z-GUARD PASTE TP SCH ×2 (00:27→12:22)
--- NOTE | 2022-02-04 00:27 | NUR ---
ASSISTED DEVELOPMENTAL TRAINING COUNSELOR CHANGE PT DIAPER. Z-GUARD APPLIED. REPOSITIONED PT.
--- NOTE | 2022-02-04 03:54 | NUR ---
V/S TAKEN. CHANGED PT DIAPER. REPOSITIONED PT. PT REMAINED CLEAN AND DRY. NO COMPLAINTS OF PAIN. NO ACUTE DISTRESS NOTED.
[2022-02-04 04:00] VITALS: BP 148/68
[2022-02-04] MEDS: LANSOPRAZOLE 30 MG CAPDR PO SCH (05:32)
[2022-02-04] MEDS: BLOOD GLUCOSE MONITORING 1 DEV DEV FS SCH ×3 (05:36→17:09)
--- NOTE | 2022-02-04 05:36 | NUR ---
DUE MED GIVEN. NO INSULIN COVERAGE NEEDED FOR BS 120. PT COMFORTABLY SITTING IN BED WITH NO DISTRESS NOTED ON RA.
--- NOTE | 2022-02-04 07:08 | NUR ---
GAVE BEDSIDE REPORT TO DAY SHIFT RN WILLAM FOR CONTINUITY OF CARE. ALL NEEDS MET THROUGHOUT SHIFT. PT IS STABLE.
[2022-02-04 07:51] LABS: BASOPHILS % (AUTO) 0.4 % (0.0-2.0); EOSINOPHILS # (AUTO) 0.3 K/uL (0-0.4); EOSINOPHILS % (AUTO) 3.8 % (0.0-4.0); HEMATOCRIT 33.2 % (36-52); HEMOGLOBIN 10.9 g/dL (12.0-18.0); LYMPHOCYTES # (AUTO) 0.7 K/uL (2.0-11.5); LYMPHOCYTES % (AUTO) 9.9 % (20.5-51.1); MEAN CORPUSCULAR HEMOGLOBIN 30 pg (27-31); MEAN CORPUSCULAR HGB CONC 33 g/dL (33-37); MEAN CORPUSCULAR VOLUME 91.3 fL (80-94); MONOCYTES # (AUTO) 1.3 K/uL (0.8-1.0); MONOCYTES % (AUTO) 17.6 % (1.7-9.3); NEUTROPHILS # (AUTO) 4.9 K/uL (1.8-7.7); NEUTROPHILS % (AUTO) 68.3 % (42.2-75.2); PLATELET COUNT (AUTO) 257 K/uL (140-450); RED BLOOD CELL COUNT(AUTO) 3.63 MIL/uL (4.20-6.10); RED CELL DISTRIBUTION WIDTH 15.9 % (11.6-13.7); WHITE BLOOD COUNT (AUTO) 7.2 K/uL (4.8-10.8)
--- NOTE | 2022-02-04 07:53 | NUR ---
NURSES NOTE V RECEIVED PATIENT ON BED SIDE , A/OX3 , VSS , ON ROOM AIR , ON SOFT DIET , CONTINENT X2 NO COMPLAIN AT THIS TIME , WILL CONTINUE OBSERVE .
[2022-02-04 08:25] LABS: CHLORIDE 98 mmol/L (98-107); CREATININE 1.1 mg/dL (0.6-1.3); GLUCOSE 114 mg/dL (74-106); SODIUM SERUM 138 mmol/L (136-145); UREA NITROGEN, BLOOD 13 mg/dL (7-18)
[2022-02-04] MEDS: MUPIROCIN CA NASAL 2% 1GM TUBE NS SCH (08:51)
[2022-02-04] MEDS: FUROSEMIDE 40 MG/4 ML VIAL IVP SCH (08:51)
[2022-02-04] MEDS: CHLORHEXADINE GLUC 2% CLOTH TP SCH (08:51)
[2022-02-04] MEDS: amLODIPine 5 MG TAB PO SCH (08:51)
[2022-02-04 09:52] VITALS: BP 155/56
[2022-02-04] MEDS: INSULIN LISPRO SLIDING SCALE 100 UNITS/ML VIAL SUBQ PRN ×2 (12:11→17:11)
--- NOTE | 2022-02-04 12:20 | NUR ---
NURSES NOTE PATIENT STEF [address] AMAYA HE SAID START PT ON LANTUS 40UNT DAILY
[2022-02-04] MEDS ORDERED: INSULIN LANTUS 100 UNITS/ML 10 ML VIAL SUBQ SCH (12:30)
--- NOTE | 2022-02-04 13:21 | NUR ---
PATIENT STABLE , ON BED REST , NO COMPLAIN AT THIS TIME .
--- NOTE | 2022-02-04 15:14 | NUR ---
DC PLANNING SW MET WITH PT AT BEDSIDE TO COMPLETE ASSESSMENT. PT REPORTS RESIDING WITH [facility], [facility] FOR THE LAST 8 YRS. PT IDENTIFIED DEENA CORONA, AND MARIFER GABE SAMEERA, EMERGENCY CONTACTS. PT REPORTS BEING MEDICATION COMPLIANT AND REPORTS MEDICATION IS ADMINISTERED BY RESIDENTIAL STAFF WHEN REQUIRED. PT REPORTS UTILIZING WC AND REPORTS THAT HE REQUIRES ASSISTANCE WITH ADL'S. 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 PT REPORTS HX OF DIABETES THAT IS WELL MANAGED. PT REPORTS DC PLAN IS TO RETURN HOME TO [facility] WHEN STABLE. PT CONTINUED TO INQUIRE ON WHEN HE WOULD BE DC AND REPORTED HE WANTED TO GO HOME, EXPLAINED TO PT THAT DR WOULD DC WHEN HE FELT PT WAS MEDICALLY STABLE. PT IN UNDERSTANDING. OUTREACHED TO DEENA CORONA, [facility] ADMIN, TO CONFIRM INFORMATION GATHERED FROM PT, HOWEVER, NO ANSWER. MESSAGE WAS LEFT REQUESTING A RETURN PHONE CALL. Addendum: 02/04/22 at 1515 by Aniceto SIMON Amended: Links added.
--- NOTE | 2022-02-04 16:07 | NUR ---
NURSES NOTE PATIENT A/OX3 , VSS , BED BOUND , LEFT BELOW KNEE AMBULATION , INCONTINENT , SKIN INTACT , ON CONSISTENT CARB DIET SOFT DIET , ON ACC CHECK , NO COMPLAIN AT THIS TIME , WILL CONTINUE OBSERVE .
[2022-02-04 16:45] VITALS: BP 157/59
--- NOTE | 2022-02-04 19:18 | NUR ---
REPORT GIVEN TO MACY GUARDAOD ALL HER QUESTION ANSWER .
--- NOTE | 2022-02-04 19:30 | NUR ---
RECEIVED REPORT FROM DAY SHIFT NURSE WILLAM FOR CONTINUITY OF CARE. PATIENT IS A&O X3. PATIENT IS ON NC 2L, BREATHING IS NORMAL WITH SYMMETRICAL RISE AND FALL OF CHEST. PATIENT'S IV IS A 20G LEFT HAND; RUNNING NS 5ML TKO. PATIENT HAS A LEFT BELOW KNEE AMPUTATION. PATIENT IS SLEEPING, LYING SEMI FOWLERS IN BED. BED IS IN LOWEST POSITION, WHEELS LOCKED, CALL LIGHT IN PLACE. WILL CONTINUE TO OBSERVE PATIENT.
[2022-02-04 20:00] VITALS: BP 153/62
[2022-02-04] MEDS: traZODone 50 MG TAB PO SCH (20:30)
--- NOTE | 2022-02-04 20:40 | NUR ---
ADMINISTERED 2100 MEDICATION TO PATIENT. MEDICATION WAS ADMINISTERED SUCCESSFULLY WITHOUT ANY DIFFICULTY IN SWALLOWING. ASKED PATIENT HOW HE WAS DOING; PATIENT STATED HE WAS FINE; AND LAID BACK DOWN TO GO BACK TO SLEEP. PATIENT'S BREATHING NORMAL WITH SYMMETRICAL RISE AND FALL OF CHEST. WILL CONTINUE TO OBSERVE PATIENT.
--- NOTE | 2022-02-04 23:20 | NUR ---
LOOKED IN ON PATIENT. PATIENT WAS SLEEPING, LYING ON HIS RIGHT SIDE. PATIENT'S BREATHING WAS NORMAL WITH SYMMETRICAL RISE AND FALL OF CHEST. IV IS RUNNING NS 5ML TKO. WILL CONTINUE TO OBSERVE PATIENT.
[2022-02-05] MEDS: BLOOD GLUCOSE MONITORING 1 DEV DEV FS SCH ×3 (00:41→11:43)
[2022-02-05] MEDS: INSULIN LISPRO SLIDING SCALE 100 UNITS/ML VIAL SUBQ PRN ×2 (00:43→11:43)
[2022-02-05] MEDS: Z-GUARD PASTE TP SCH ×2 (00:49→11:48)
--- NOTE | 2022-02-05 01:00 | NUR ---
OBTAINED PATIENT'S BS. BS WAS 172; GAVE 2 UNITS FOR COVERAGE INTO PATIENT'S RIGHT ARM. PATIENT TOLERATED WELL. AFTER INSULIN ADMINISTRATION, PATIENT SHUT HIS EYES TO GO BACK TO SLEEP. BREATHING WAS NORMAL WITH SYMMETRICAL RISE AND FALL OF CHEST. WILL CONTINUE TO OBSERVE PATIENT.
--- NOTE | 2022-02-05 03:00 | NUR ---
PATIENT CALLED AND REQUESTED TO BE CHANGED. PATIENT WAS CLEANED AND CHANGED BY STEVE GARRETT AND STEVE NUNEZ. PATIENT TOLERATED WELL. WILL CONTINUE TO OBSERVE PATIENT.
[2022-02-05 04:00] VITALS: BP 152/65
--- NOTE | 2022-02-05 05:00 | NUR ---
LOOKED IN ON PATIENT. PATIENT WAS SLEEPING. BREATHING WAS NORMAL WITH SYMMETRICAL RISE AND FALL OF CHEST. BED WAS IN LOWEST POSITION, WHEELS LOCKED, CALL LIGHT IN PLACE. WILL CONTINUE TO OBSERVE PATIENT.
[2022-02-05] MEDS: LANSOPRAZOLE 30 MG CAPDR PO SCH (06:36)
--- NOTE | 2022-02-05 06:45 | NUR ---
OBTAINED PATIENT'S BS; BS WAS 144, NO COVERAGE NEEDED. ADMINISTERED 0630 MEDICATION TO PATIENT. MEDICATION ADMINISTERED SUCCESSFULLY WITHOUT ANY DIFFICULTY IN SWALLOWING. PATIENT'S BREATHING IS NORMAL WITH SYMMETRICAL RISE AND FALL OF CHEST. WILL CONTINUE TO OBSERVE PATIENT.
--- NOTE | 2022-02-05 07:13 | NUR ---
nurses note received patient at bed side , a/ox3 , bedbound , incontinent , on soft diet , no complain , left bka no complain at this time , skin intact .on acc check , will continue observe .
--- NOTE | 2022-02-05 07:15 | NUR ---
ENDORSED TO DAY SHIFT NURSE WILLAM FOR CONTINUITY OF CARE. PATIENT IS STABLE.
[2022-02-05 08:13] LABS: ANION GAP 12.7 (8-16); BASOPHILS % (AUTO) 0.3 % (0.0-2.0); CHLORIDE 100 mmol/L (98-107); EOSINOPHILS # (AUTO) 0.2 K/uL (0-0.4); EOSINOPHILS % (AUTO) 3.3 % (0.0-4.0); GLUCOSE 115 mg/dL (74-106); HEMATOCRIT 32.4 % (36-52); HEMOGLOBIN 10.8 g/dL (12.0-18.0); LYMPHOCYTES # (AUTO) 0.6 K/uL (2.0-11.5); LYMPHOCYTES % (AUTO) 8.3 % (20.5-51.1); MEAN CORPUSCULAR HEMOGLOBIN 30 pg (27-31); MEAN CORPUSCULAR HGB CONC 33 g/dL (33-37); MEAN CORPUSCULAR VOLUME 90.7 fL (80-94); MONOCYTES # (AUTO) 1.2 K/uL (0.8-1.0); MONOCYTES % (AUTO) 18.1 % (1.7-9.3); NEUTROPHILS # (AUTO) 4.8 K/uL (1.8-7.7); PLATELET COUNT (AUTO) 251 K/uL (140-450); POTASSIUM 3.7 mmol/L (3.5-5.1); RED BLOOD CELL COUNT(AUTO) 3.57 MIL/uL (4.20-6.10); RED CELL DISTRIBUTION WIDTH 15.6 % (11.6-13.7); SODIUM SERUM 139 mmol/L (136-145); UREA NITROGEN, BLOOD 17 mg/dL (7-18); WHITE BLOOD COUNT (AUTO) 6.8 K/uL (4.8-10.8)
[2022-02-05] MEDS: FUROSEMIDE 40 MG/4 ML VIAL IVP SCH (08:44)
[2022-02-05] MEDS: MUPIROCIN CA NASAL 2% 1GM TUBE NS SCH (08:44)
[2022-02-05] MEDS: amLODIPine 5 MG TAB PO SCH (08:44)
[2022-02-05] MEDS: CHLORHEXADINE GLUC 2% CLOTH TP SCH (08:44)
[2022-02-05] MEDS ORDERED: INSULIN LANTUS 100 UNITS/ML 10 ML VIAL SUBQ SCH (09:00)
[2022-02-05 09:25] VITALS: BP 146/69
--- NOTE | 2022-02-05 11:22 | NUR ---
DC PLANNING: CALLED [facility] ([facility] ) SPOKE WITH DEENA THE ADMIN DISCUSSED PT'S NEEDS FOR PHYSICAL THERAPY AND HOME O2 2L/NC PRN. PER DEENA THEY HAVE PHYSICAL THERAPY COMES TO THE NURSING HOME AND PATIENT IS USING O2 PRN. FAXED ALL [employer] TO [phone]. PER DEENA THEY CAN PROVIDE TRANSPORT AND ASKING TO CALL HER WHEN PAPERWORK IS DONE. NOTIFIED FRED GUARDADO. SUNNY TO FOLLOW
--- NOTE | 2022-02-05 12:43 | NUR ---
NURSES NOTE PATIENT A/OX3 , VSS , ON NASAL CANNULA 2 LITER O2 , INCONTINENT, SKIN INTACT ON CONTENT ISOLATION NO COMPLAIN AT THIS TIME ,SAFETY ON PLACE , BED IN LOWER POSITION , CALL LIGHT WITHIN REACH SIDE RAILS UP X3 , ON BED REST , ON SOFT DIET ,HE CAN BR DISCHARGE TODAY , STILL UNDER OBSERVE .
[2022-02-05] MEDS ORDERED: ALBUTEROL SULFATE/IPRATROPIU 3 ML SOL IH PRN (15:10)
[2022-02-05 15:38] VITALS: BP 145/69
--- NOTE | 2022-02-05 16:08 | NUR ---
nurses not PATIENT HAS DISCHARGE ORDER TO [facility] , I CALL RICHY TO SETUP TRANSPORTATION FOR PATIENT , I INFORMED HER PT READY TO PICKED UP , IV LINE AND ARM BAND REMOVED , ALL DOCUMENT SIGN AND PLACE ON CHART , DISCHARGE PACKET EXPLAIN FOR PT AND VERBALIZED UNDERSTANDING OF GIVE ,WAITING FOR TRANSPORTATION .
[2022-02-05] MEDS ORDERED: ACETYLCYSTEINE 10% (100 MG/ML) 100 MG/ML VIAL INH SCH (19:00)
[2022-02-05] MEDS ORDERED: ALBUTEROL SULFATE/IPRATROPIU 3 ML SOL IH SCH (19:00)
== END 2022-02-05 16:50 | disposition home or self-care (01) | DRG 193 ==
LOC: MED 18:20 → MTU 02-01 02:24
PROVIDERS: ADMIT Preventive Medicine Preventive Medicine/Occupational Environmental Medicine; ATTEND Preventive Medicine Preventive Medicine/Occupational Environmental Medicine
PROC: 0DJ08ZZ Inspection of Upper Intestinal Tract, Via Natural or Artificial Opening Endoscopic (ICD-10-PCS; principal; 2022-02-02 07:30)
DX: J18.0 Bronchopneumonia, unspecified organism (principal); J96.00 Acute respiratory failure, unspecified whether with hypoxia or hypercapnia; E87.1 Hypo-osmolality and hyponatremia; I13.0 Hypertensive heart and chronic kidney disease with heart failure and stage 1 through stage 4 chronic kidney disease, or unspecified chronic kidney disease; R13.10 Dysphagia, unspecified; R11.2 Nausea with vomiting, unspecified; D64.9 Anemia, unspecified; N18.31 Chronic kidney disease, stage 3a; Z20.822 Contact with and (suspected) exposure to COVID-19; E88.09 Other disorders of plasma-protein metabolism, not elsewhere classified; K21.9 Gastro-esophageal reflux disease without esophagitis; E11.22 Type 2 diabetes mellitus with diabetic chronic kidney disease; I50.9 Heart failure, unspecified; E03.9 Hypothyroidism, unspecified; E78.5 Hyperlipidemia, unspecified; N40.0 Benign prostatic hyperplasia without lower urinary tract symptoms; E66.9 Obesity, unspecified; M81.0 Age-related osteoporosis without current pathological fracture; K80.20 Calculus of gallbladder without cholecystitis without obstruction; K44.9 Diaphragmatic hernia without obstruction or gangrene; K21.00 Gastro-esophageal reflux disease with esophagitis, without bleeding; E11.65 Type 2 diabetes mellitus with hyperglycemia; J98.09 Other diseases of bronchus, not elsewhere classified; Z88.5 Allergy status to narcotic agent; Z83.3 Family history of diabetes mellitus; Z79.4 Long term (current) use of insulin; Z68.20 Body mass index [BMI] 20.0-20.9, adult; Z82.3 Family history of stroke; Z22.322 Carrier or suspected carrier of Methicillin resistant Staphylococcus aureus
CPT/HCPCS: 36415; 70450; 71045; 71250; 80048; 80053; 82948; 84484; 85025; 85651; 86140; 87081; 96361; 96374; 96375; 97163-GP; 97530; 99285; J0696; J1610; J1815; J1940; J2060; J2250; J2405; J3010; J3490; J7030; J7060; Q0092

== ENCOUNTER 2023-05-16 16:32 | Inpatient (IN) | payer OTHER ==
[~2023-05-16] VITALS: Ht 180.3 cm; Wt 76.7 kg
[~2023-05-16 16:32] MED LIST changes: -ACET-2619 PO; -BISA10SU1 RC; -IBUP-2213 PO; -IMO2 PO; -INSU100S22 SQ; -MIRA50TE PO; -ONDA4TAB PO; -PEP15L PO; -PRED20TA5 PO; -RANI-745 PO; -ROB PO; -[UNRECOGNIZED DRUG - CODE] SC; -[UNRECOGNIZED DRUG - CODE] TP
[2023-05-16 16:37] VITALS: BP 149/85; PULSE 81; RESP 16; TEMP 98.2; O2SAT 98
[2023-05-16 17:35] LABS: BASOPHILS # (AUTO) 0.1 K/uL (0.00-0.22); BASOPHILS % (AUTO) 0.6 % (0.0-2.0); EOSINOPHILS # (AUTO) 0.4 K/uL (0-0.4); EOSINOPHILS % (AUTO) 3.8 % (0.0-4.0); HEMATOCRIT 34.6 % (36-52); HEMOGLOBIN 11.7 g/dL (12.0-18.0); MEAN CORPUSCULAR HEMOGLOBIN 30 pg (27-31); MEAN CORPUSCULAR HGB CONC 34 g/dL (33-37); MEAN CORPUSCULAR VOLUME 88.7 fL (80-94); MONOCYTES # (AUTO) 1.4 K/uL (0.8-1.0); MONOCYTES % (AUTO) 14.3 % (1.7-9.3); NEUTROPHILS # (AUTO) 6.8 K/uL (1.8-7.7); NEUTROPHILS % (AUTO) 71.3 % (42.2-75.2); PLATELET COUNT (AUTO) 293 K/uL (140-450); RED BLOOD CELL COUNT(AUTO) 3.91 MIL/uL (4.20-6.10); RED CELL DISTRIBUTION WIDTH 14.2 % (11.6-13.7); WHITE BLOOD COUNT (AUTO) 9.6 K/uL (4.8-10.8)
[2023-05-16 17:51] LABS: ANION GAP 10.6 (8-16); CALCIUM 9.2 mg/dL (8.5-10.1); CARBON DIOXIDE 30.6 mmol/L (21-32); CHLORIDE 100 mmol/L (98-107); CREATININE 1.1 mg/dL (0.6-1.3); GLUCOSE 124 mg/dL (74-106); POTASSIUM 4.2 mmol/L (3.5-5.1); SODIUM SERUM 137 mmol/L (136-145); UREA NITROGEN, BLOOD 26 mg/dL (7-18)
[2023-05-16 17:54] LABS: INR 0.95 (0.8-1.2); PARTIAL THROMBOPLASTIN TIME 29.2 secs (22-35.6)
[2023-05-16 17:58] LABS: ALANINE AMINOTRANSFERASE 17 U/L (12-78); ALBUMIN 3.2 g/dL (3.4-5.0); ALKALINE PHOSPHATASE 188 U/L (50-136); ASPARTATE AMINOTRANSFERASE 40 U/L (15-37); BILIRUBIN,DIRECT 0.1 mg/dL (0.0-0.3); CREATINE KINASE, TOTAL 111 U/L (39-308); TOTAL BILIRUBIN 0.3 mg/dL (0.0-1.0); TOTAL PROTEIN, SERUM 7.6 g/dL (6.4-8.2)
[2023-05-16 18:01] LABS: LACTIC ACID 1.2 mmol/L (0.4-2.0)
[2023-05-16 18:41] LABS: APPEARANCE,URINE CLEAR (CLEAR); BILIRUBIN,URINE NEGATIVE (NEGATIVE); BLOOD, URINE TRACE-I (NEGATIVE); COLOR,URINE YELLOW (YELLOW); LEUKOCYTE ESTERASE ,URINE NEGATIVE (NEGATIVE); NITRITE, URINE NEGATIVE (NEGATIVE); PH,URINE 6.5 (5.0-9.0); PROTEIN,URINE NEGATIVE (NEGATIVE); UGLUCOSE NEGATIVE (NEGATIVE); UROBILINOGEN,URINE 0.2 EU/dL (0.2 - 1)
[2023-05-16] MEDS: ASPIRIN 325 MG TAB PO ONE (19:09)
[2023-05-16] MEDS ORDERED: HEPARIN PER PHARMACY MC PRN (19:40)
[2023-05-16] MEDS ORDERED: APIX2.5 PO (19:54)
[2023-05-16 20:06] LABS: FLU A ANTIGEN negative (NEGATIVE); FLU B ANTIGEN negative (NEGATIVE)
[2023-05-16 21:00] VITALS: PULSE 71; RESP 19; O2SAT 96
[2023-05-16] MEDS: hePARIN / DEXT 5% PREMIX 250 ML IV SCH (21:23)
[2023-05-16 22:00] VITALS: BP 169/76; PULSE 69; RESP 12; O2SAT 95
[2023-05-16 23:00] VITALS: BP 150/67; PULSE 64; RESP 21; O2SAT 95
[2023-05-17] VITALS (27 sets, daily range): BP systolic 120–158; BP diastolic 54–109; PULSE 64–86; RESP 16–30; TEMP 97–99.7; O2SAT 95–98
[2023-05-17 05:58] LABS: BASOPHILS # (AUTO) 0.1 K/uL (0.00-0.22); BASOPHILS % (AUTO) 0.5 % (0.0-2.0); EOSINOPHILS # (AUTO) 0.3 K/uL (0-0.4); HEMATOCRIT 33.3 % (36-52); HEMOGLOBIN 11.1 g/dL (12.0-18.0); LYMPHOCYTES # (AUTO) 1.1 K/uL (2.0-11.5); LYMPHOCYTES % (AUTO) 8.2 % (20.5-51.1); MEAN CORPUSCULAR HEMOGLOBIN 30 pg (27-31); MEAN CORPUSCULAR HGB CONC 33 g/dL (33-37); MEAN CORPUSCULAR VOLUME 89.2 fL (80-94); MONOCYTES # (AUTO) 1.6 K/uL (0.8-1.0); MONOCYTES % (AUTO) 12.2 % (1.7-9.3); NEUTROPHILS # (AUTO) 9.9 K/uL (1.8-7.7); NEUTROPHILS % (AUTO) 77.1 % (42.2-75.2); PLATELET COUNT (AUTO) 248 K/uL (140-450); RED BLOOD CELL COUNT(AUTO) 3.73 MIL/uL (4.20-6.10); RED CELL DISTRIBUTION WIDTH 14.1 % (11.6-13.7); WHITE BLOOD COUNT (AUTO) 12.8 K/uL (4.8-10.8)
[2023-05-17] MEDS: LEVOTHYROXINE 0.1 MG TAB PO SCH (05:59)
[2023-05-17] MEDS: VANCOMYCIN 500 MG VIAL PO SCH (06:00)
[2023-05-17 06:10] LABS: ANION GAP 12.9 (8-16); CALCIUM 8.9 mg/dL (8.5-10.1); CHLORIDE 100 mmol/L (98-107); CREATININE 0.8 mg/dL (0.6-1.3); GLUCOSE 125 mg/dL (74-106); POTASSIUM 5.9 mmol/L (3.5-5.1); SODIUM SERUM 136 mmol/L (136-145); UREA NITROGEN, BLOOD 22 mg/dL (7-18)
[2023-05-17] MEDS ORDERED: APIXABAN 2.5 MG TAB PO SCH (09:00)
[2023-05-17] MEDS ORDERED: INSULIN LANTUS 100 UNITS/ML 10 ML VIAL SUBQ SCH (09:00)
[2023-05-17] MEDS ORDERED: ACARBOSE 50 MG TAB PO SCH ×3 (09:00→17:00)
[2023-05-17] MEDS ORDERED: FLUVOXAMINE MALEATE 100 MG PO SCH (09:00)
[2023-05-17] MEDS ORDERED: CRANBERRY FRUIT EXTRACT PO SCH (09:00)
[2023-05-17] MEDS ORDERED: DEXTROSE 50% 50 ML SYR IVP PRN (09:05)
[2023-05-17] MEDS: CALCIUM CARB/VIT-D 500 MG/200 IU 1 TAB PO SCH (09:33)
[2023-05-17] MEDS: LOSARTAN 50 MG TAB PO SCH (09:33)
[2023-05-17] MEDS: MULTIVITAMIN/MINERALS 1 TAB PO SCH (09:33)
[2023-05-17] MEDS: ATORVASTATIN 20 MG TAB PO SCH (09:33)
[2023-05-17] MEDS: FAMOTIDINE 20 MG TAB PO SCH (09:34)
[2023-05-17] MEDS: amLODIPine 5 MG TAB PO SCH (09:34)
[2023-05-17] MEDS: ECOTRIN 81 MG TABEC PO SCH (09:39)
[2023-05-17] MEDS: METOPROLOL SUCCINATE 50 MG TABER PO SCH (09:39)
[2023-05-17] MEDS: SODIUM POLYSTYRENE 15 GM/60 ML UDBTL PO PRN (11:07)
[2023-05-17] MEDS: BLOOD GLUCOSE MONITORING 1 DEV DEV FS SCH (11:40)
[2023-05-17] MEDS: INSULIN LISPRO SLIDING SCALE 100 UNITS/ML VIAL SUBQ PRN (11:40)
[2023-05-17] MEDS: ACARBOSE 50 MG TAB PO SCH (17:00)
[2023-05-17] MEDS: TAMSULOSIN 0.4 MG CAP PO SCH (20:18)
[2023-05-17] MEDS: LEVOFLOXACIN 500 MG/D5W PREMIX 100 ML IV SCH (23:32)
[2023-05-18] VITALS (17 sets, daily range): BP systolic 121–154; BP diastolic 51–70; PULSE 57–86; RESP 11–22; TEMP 97.3–98.2; O2SAT 95–99
[2023-05-18] MEDS ORDERED: WATER STERILE 10 ML MC ONE (00:15)
[2023-05-18 05:52] LABS: BASOPHILS # (AUTO) 0.1 K/uL (0.00-0.22); BASOPHILS % (AUTO) 0.7 % (0.0-2.0); EOSINOPHILS # (AUTO) 0.1 K/uL (0-0.4); EOSINOPHILS % (AUTO) 0.8 % (0.0-4.0); HEMATOCRIT 28.5 % (36-52); HEMOGLOBIN 9.4 g/dL (12.0-18.0); LYMPHOCYTES # (AUTO) 1.1 K/uL (2.0-11.5); LYMPHOCYTES % (AUTO) 9.5 % (20.5-51.1); MEAN CORPUSCULAR HEMOGLOBIN 30 pg (27-31); MEAN CORPUSCULAR HGB CONC 33 g/dL (33-37); MEAN CORPUSCULAR VOLUME 89.7 fL (80-94); MONOCYTES # (AUTO) 1.5 K/uL (0.8-1.0); MONOCYTES % (AUTO) 12.9 % (1.7-9.3); NEUTROPHILS % (AUTO) 76.1 % (42.2-75.2); PLATELET COUNT (AUTO) 211 K/uL (140-450); RED BLOOD CELL COUNT(AUTO) 3.18 MIL/uL (4.20-6.10); RED CELL DISTRIBUTION WIDTH 13.9 % (11.6-13.7); WHITE BLOOD COUNT (AUTO) 11.8 K/uL (4.8-10.8)
[2023-05-18] MEDS: FLUVOXAMINE MALEATE 100 MG PO SCH (06:01)
[2023-05-18 06:33] LABS: ALANINE AMINOTRANSFERASE 12 U/L (12-78); ALBUMIN 2.4 g/dL (3.4-5.0); ALKALINE PHOSPHATASE 111 U/L (50-136); ANION GAP 15.8 (8-16); ASPARTATE AMINOTRANSFERASE 32 U/L (15-37); CALCIUM 8.3 mg/dL (8.5-10.1); CARBON DIOXIDE 24.9 mmol/L (21-32); CHLORIDE 102 mmol/L (98-107); CREATININE 1.4 mg/dL (0.6-1.3); GLUCOSE 293 mg/dL (74-106); POTASSIUM 3.7 mmol/L (3.5-5.1); SODIUM SERUM 139 mmol/L (136-145); TOTAL BILIRUBIN 0.5 mg/dL (0.0-1.0); UREA NITROGEN, BLOOD 29 mg/dL (7-18)
[2023-05-18] MEDS: INSULIN LANTUS 100 UNITS/ML 10 ML VIAL SUBQ SCH (08:14)
[2023-05-18] MEDS: VANCOMYCIN HCL 25 MG/ML SOLN PO SCH (11:19)
[2023-05-18] MEDS ORDERED: HYDRAGUARD CREAM TP SCH (23:25)
[2023-05-19] VITALS (9 sets, daily range): BP systolic 113–135; BP diastolic 57–81; PULSE 67–85; RESP 18–19; TEMP 96.8–98.3; O2SAT 92–98
[2023-05-19] MEDS: HYDRAGUARD CREAM TP ONE (00:11)
[2023-05-19] MEDS: traMADol 50 MG TAB PO PRN (01:48)
[2023-05-19 07:18] LABS: BASOPHILS % (AUTO) 0.3 % (0.0-2.0); EOSINOPHILS # (AUTO) 0.1 K/uL (0-0.4); HEMATOCRIT 29.8 % (36-52); HEMOGLOBIN 10.1 g/dL (12.0-18.0); LYMPHOCYTES # (AUTO) 0.8 K/uL (2.0-11.5); LYMPHOCYTES % (AUTO) 7.2 % (20.5-51.1); MEAN CORPUSCULAR HEMOGLOBIN 30 pg (27-31); MEAN CORPUSCULAR HGB CONC 34 g/dL (33-37); MONOCYTES # (AUTO) 1.2 K/uL (0.8-1.0); MONOCYTES % (AUTO) 11.6 % (1.7-9.3); NEUTROPHILS # (AUTO) 8.5 K/uL (1.8-7.7); NEUTROPHILS % (AUTO) 79.9 % (42.2-75.2); PLATELET COUNT (AUTO) 233 K/uL (140-450); RED BLOOD CELL COUNT(AUTO) 3.35 MIL/uL (4.20-6.10); WHITE BLOOD COUNT (AUTO) 10.6 K/uL (4.8-10.8)
[2023-05-19 07:39] LABS: ANION GAP 12.4 (8-16); CALCIUM 8.6 mg/dL (8.5-10.1); CARBON DIOXIDE 27.5 mmol/L (21-32); CHLORIDE 100 mmol/L (98-107); CREATININE 1.3 mg/dL (0.6-1.3); GLUCOSE 379 mg/dL (74-106); POTASSIUM 3.9 mmol/L (3.5-5.1); SODIUM SERUM 136 mmol/L (136-145); UREA NITROGEN, BLOOD 32 mg/dL (7-18)
[2023-05-19 07:44] LABS: MAGNESIUM 1.8 mg/dL (1.8-2.4); PHOSPHORUS 4.3 mg/dL (2.5-4.9)
[2023-05-19] MEDS: ATORVASTATIN 20 MG TAB PO SCH (09:18)
[2023-05-19] MEDS: CLOPIDOGREL 75 MG TAB PO SCH (14:55)
[2023-05-20 04:00] VITALS: BP 118/69; PULSE 88; RESP 19; TEMP 97.6; O2SAT 97
[2023-05-20 05:30] VITALS: O2SAT 98
[2023-05-20 05:52] LABS: BASOPHILS % (AUTO) 0.2 % (0.0-2.0); EOSINOPHILS # (AUTO) 0.2 K/uL (0-0.4); EOSINOPHILS % (AUTO) 2.2 % (0.0-4.0); HEMATOCRIT 30.2 % (36-52); HEMOGLOBIN 10.1 g/dL (12.0-18.0); LYMPHOCYTES # (AUTO) 0.8 K/uL (2.0-11.5); LYMPHOCYTES % (AUTO) 7.2 % (20.5-51.1); MEAN CORPUSCULAR HEMOGLOBIN 30 pg (27-31); MEAN CORPUSCULAR HGB CONC 33 g/dL (33-37); MEAN CORPUSCULAR VOLUME 88.9 fL (80-94); MONOCYTES # (AUTO) 1.5 K/uL (0.8-1.0); MONOCYTES % (AUTO) 13.5 % (1.7-9.3); NEUTROPHILS # (AUTO) 8.5 K/uL (1.8-7.7); NEUTROPHILS % (AUTO) 76.9 % (42.2-75.2); PLATELET COUNT (AUTO) 244 K/uL (140-450); RED CELL DISTRIBUTION WIDTH 13.6 % (11.6-13.7)
[2023-05-20 06:26] LABS: ALANINE AMINOTRANSFERASE 10 U/L (12-78); ALBUMIN 2.5 g/dL (3.4-5.0); ALKALINE PHOSPHATASE 115 U/L (50-136); ANION GAP 13.2 (8-16); ASPARTATE AMINOTRANSFERASE 35 U/L (15-37); CALCIUM 8.6 mg/dL (8.5-10.1); CARBON DIOXIDE 27.5 mmol/L (21-32); CHLORIDE 101 mmol/L (98-107); CREATININE 1.2 mg/dL (0.6-1.3); GLUCOSE 277 mg/dL (74-106); POTASSIUM 3.7 mmol/L (3.5-5.1); SODIUM SERUM 138 mmol/L (136-145); TOTAL BILIRUBIN 0.4 mg/dL (0.0-1.0); TOTAL PROTEIN, SERUM 6.6 g/dL (6.4-8.2); UREA NITROGEN, BLOOD 30 mg/dL (7-18)
[2023-05-20 08:00] VITALS: BP 139/59; PULSE 70; RESP 18; TEMP 97.8; TEMP 98.5; O2SAT 96
[2023-05-20 11:10] VITALS: O2SAT 97
[2023-05-20 19:09] VITALS: BP 139/59; PULSE 70; RESP 18; TEMP 98.5
== END 2023-05-20 19:30 | disposition home health service (06) | DRG 871 ==
LOC: MED 16:32 → MTU 19:47 → MIC 20:10 → MTU 05-18 15:19
PROVIDERS: ADMIT Preventive Medicine Preventive Medicine/Occupational Environmental Medicine; ATTEND Preventive Medicine Preventive Medicine/Occupational Environmental Medicine
DX: A41.9 Sepsis, unspecified organism (principal); E11.10 Type 2 diabetes mellitus with ketoacidosis without coma; E43 Unspecified severe protein-calorie malnutrition; I21.4 Non-ST elevation (NSTEMI) myocardial infarction; J18.9 Pneumonia, unspecified organism; J44.0 Chronic obstructive pulmonary disease with (acute) lower respiratory infection; N17.9 Acute kidney failure, unspecified; E88.09 Other disorders of plasma-protein metabolism, not elsewhere classified; I50.9 Heart failure, unspecified; M81.0 Age-related osteoporosis without current pathological fracture; Z20.822 Contact with and (suspected) exposure to COVID-19; D64.9 Anemia, unspecified; E03.9 Hypothyroidism, unspecified; E78.5 Hyperlipidemia, unspecified; E83.51 Hypocalcemia; E87.5 Hyperkalemia; E11.40 Type 2 diabetes mellitus with diabetic neuropathy, unspecified; I11.0 Hypertensive heart disease with heart failure; I25.10 Atherosclerotic heart disease of native coronary artery without angina pectoris; K21.9 Gastro-esophageal reflux disease without esophagitis; K80.20 Calculus of gallbladder without cholecystitis without obstruction; N40.0 Benign prostatic hyperplasia without lower urinary tract symptoms; Z79.01 Long term (current) use of anticoagulants; Z86.718 Personal history of other venous thrombosis and embolism; Z86.73 Personal history of transient ischemic attack (TIA), and cerebral infarction without residual deficits; Z88.5 Allergy status to narcotic agent; Z89.512 Acquired absence of left leg below knee; Z88.8 Allergy status to other drugs, medicaments and biological substances; Z79.4 Long term (current) use of insulin; Z79.82 Long term (current) use of aspirin; Z68.23 Body mass index [BMI] 23.0-23.9, adult
CPT/HCPCS: 36415; 71045; 71275; 80048; 80053; 80076; 81003; 82550; 82948; 83605; 83735; 83880; 84100; 84484; 85025; 85610; 85651; 85730; 86140; 87040; 87070; 87081; 87086; 93005; 96374; 97163-GP; 97530; 99291; J1644; J1815; J1956; J3370; Q0092; Q9967